=== PATIENT | male | born 1970 | race Caucasian/White ===

== ENCOUNTER 2025-04-04 10:41 | Inpatient (IN) | payer MEDICAID, SELFPAY ==
--- OUTSIDE RECORDS SUMMARY | 2024-02-12 11:40 | XMS_ITS ---
Author Organization [employer] [facility] Address [address] [place] [address] Care Team Providers Care Mud Mill Tender Name Role Phone Tony Guzman MD Primary Care Provider [phone] REASON FOR VISIT 3 mon f/u Medications Medication SIG (Take, Route, Frequency, Duration) Notes Start Date End Date Status BUSPIRONE 10 mg tablet 1 tab(s) orally 4 times a day Active HYDROXYZINE hydrochloride 10 mg tablet 1 tab(s) orally 4 times a day Active DICLOFENAC sodium 75 mg delayed release tablet 1 tab(s) orally 2 times a day; Duration: 30 day(s) Active LISINOPRIL 10 mg tablet 1 tab(s) orally once a day; Duration: 90 days 08/07/2023 Active ONDANSETRON 4 mg tablet, disintegrating 1 tab(s) orally daily prn; Duration: 30 days Active CARVEDILOL 12.5 mg tablet 1 tab(s) orall y 2 times a day; Duration: 90 day(s) Active ASPIRIN 81 mg tablet, chewable 1 tab(s) chewed once a day; Duration: 90 days 08/07/2023 Active SUBOXONE 8 mg-2 mg film 2 film(s) sublin gually once a day; Duration: 30 day(s) Active EFFEXOR XR 75 mg capsule, extended release 1 cap(s) orally once a day; Duration: 30 day(s) Active DOXEPIN 100 mg capsule 1 cap(s) orally o nce a day (at bedtime); Duration: 30 day(s) Active TAMSULOSIN 0.4 mg capsule 1 cap(s) orall y once a day; Duration: 90 days Active VITAMIN D3 125 mcg capsule 1 cap(s) oral ly once a day; Duration: 90 days Active ATORVASTATIN 20 mg tablet 1 tab(s) orall y once a day; Duration: 90 days Active FAMOTIDINE 20 mg tablet 1 tab(s) orally 2 times a day; Duration: 90 days Active LORATADINE 10 mg tablet 1 tab(s) orally once a day; Duration: 90 days Active GABAPENTIN 300 mg capsule 1 cap(s) orall y daily; Duration: 28 days 11/20/2023 Active OMEPRAZOLE 20 mg delayed release capsule 1 cap(s) orally once a day; Duration: 90 days Active METHOCARBAMOL 500 mg tablet 1 tab orally bedtime; Duration: 90 days Active ACETAMINOPHEN 500 mg tablet 1 tab(s) ora lly every 8 hours; Duration: 90 days Active Encounters Encounter Location Date Provider Diagnosis [address] [address] 02/12/2024 Tony Guzman Plan Of Treatment No Information Progress Notes * Danny SCHAFFER DDOB:[birth year] (54 yo M)Acc No.[id number]:02/12/2024 Progress Note Patient: Travis villarreal Danny Pires Provider: Gaby Guzman M.D. :1970 A ge:53 Y S ex:Male Date:02/12/2024 Address:[address] [place], [place] [id number] Subjective: * Chief Complaints: * 3 mon f/u * Medications: T akingGABAPENTIN 300 mg capsule 1 cap(s) orally daily OMEPRAZOLE 20 mg delayed release capsule 1 cap(s) orally once a day METHOCARBAMOL 500 mg tablet 1 tab orally bedtime ACETAMINOPHEN 500 mg tablet 1 tab(s) orally every 8 hours TAMSULOSIN 0.4 mg capsule 1 cap(s) orally once a day VITAMIN D3 125 mcg capsule 1 cap(s) orally once a day ATORVASTATIN 20 mg tablet 1 tab(s) orally once a day FAMOTIDINE 20 mg tablet 1 tab(s) orally 2 times a day LORATADINE 10 mg tablet 1 tab(s) orally once a day CARVEDILOL 12.5 mg tablet 1 tab(s) orally 2 times a day ASPIRIN 81 mg tablet, chewable 1 tab(s) chewed once a day SUBOXONE 8 mg-2 mg film 2 film(s) sublingually once a day EFFEXOR XR 75 mg capsule, extended release 1 cap(s) orally once a day DOXEPIN 100 mg capsule 1 cap(s) orally once a day (at bedtime) BUSPIRONE 10 mg tablet 1 tab(s) orally 4 times a day HYDROXYZINE hydrochloride 10 mg tablet 1 tab(s) orally 4 times a day DICLOFENAC sodium 75 mg delayed release tablet 1 tab(s) orally 2 times a day LISINOPRIL 10 mg tablet 1 tab(s) orally once a day ONDANSETRON 4 mg tablet, disintegrating 1 tab(s) orally daily prn Taking GABAPENTIN 300 mg capsule 1 cap(s) orally daily Taking OMEPRAZOLE 20 mg delayed release capsule 1 cap(s) orally once a day Taking METHOCARBAMOL 500 mg tablet 1 tab orally bedtime Taking ACETAMINOPHEN 500 mg tablet 1 tab(s) orally every 8 hours Taking TAMSULOSIN 0.4 mg capsule 1 cap(s) orally once a day Taking VITAMIN D3 125 mcg capsule 1 cap(s) orally once a day Taking ATORVASTATIN 20 mg tablet 1 tab(s) orally once a day Taking FAMOTIDINE 20 mg tablet 1 tab(s) orally 2 times a day Taking LORATADINE 10 mg tablet 1 tab(s) orally once a day Taking CARVEDILOL 12.5 mg tablet 1 tab(s) orally 2 times a day Taking ASPIRIN 81 mg tablet, chewable 1 tab(s) chewed once a day Taking SUBOXONE 8 mg-2 mg film 2 film(s) sublingually once a day Taking EFFEXOR XR 75 mg capsule, extended release 1 cap(s) orally once a day Taking DOXEPIN 100 mg capsule 1 cap(s) orally once a day (at bedtime) Taking BUSPIRONE 10 mg tablet 1 tab(s) orally 4 times a day Taking HYDROXYZINE hydrochloride 10 mg tablet 1 tab(s) orally 4 times a day Taking DICLOFENAC sodium 75 mg delayed release tablet 1 tab(s) orally 2 times a day Taking LISINOPRIL 10 mg tablet 1 tab(s) orally once a day Taking ONDANSETRON 4 mg tablet, disintegrating 1 tab(s) orally daily prn Care Plan Details* * Electronic signature of Serina Guzman MD, MD on 04/04/2025 at 10:54 AM EST Sign off status: Pending * Provider: Gaby Guzman M.D. Date: Generated for Chilo hooks/Clarisse/Radha on: 06/04/2024 10:54 AM EST
--- OUTSIDE RECORDS SUMMARY | 2024-08-26 10:00 | XMS_ITS ---
Author Organization [email or web address] [facility] Address [address] [address] Care Team Providers Care Mud Trucker Name Role Phone Tony Guzman MD Primary Care Provider [phone] REASON FOR VISIT 3 month f/u Medications Medication SIG (Take, Route, Frequency, Duration) Notes Start Date End Date Status CARVEDILOL 12.5 mg tablet 1 tab(s) orall y 2 times a day Active SUBOXONE 8 mg-2 mg film 2 film(s) sublin gually once a day Active FAMOTIDINE 20 mg tablet 1 tab(s) orally 2 times a day Active EFFEXOR XR 75 mg capsule, extended release 1 cap(s) orally once a day Active DOXEPIN 100 mg capsule 1 cap(s) orally o nce a day (at bedtime) Active ATORVASTATIN 20 mg tablet 1 tab(s) orall y once a day Active TAMSULOSIN 0.4 mg capsule 1 cap(s) orall y once a day Active METHOCARBAMOL 500 mg tablet 1 tab orally bedtime Active ACETAMINOPHEN 500 mg tablet 1 tab(s) ora lly every 8 hours Active OMEPRAZOLE 20 mg delayed release capsule 1 cap(s) orally once a day Active VITAMIN D3 125 mcg capsule 1 cap(s) oral ly once a day; Duration: 90 days Active LORATADINE 10 mg tablet 1 tab(s) orally once a day; Duration: 90 days Active GABAPENTIN 300 mg capsule 1 cap(s) orally daily Active HYDROXYZINE hydrochloride 10 mg tablet 1 tab(s) orally 4 times a day Active ONDANSETRON 4 mg tablet, disintegrating 1 tab(s) orally daily prn; Duration: 30 days Active CLONAZEPAM 0.5 mg tablet 1 tab(s) orally 4 times a day Active BUSPIRONE 10 mg tablet 1 tab(s) orally 4 times a day Active LOSARTAN POTASSIUM 50 mg tablet 1 tab(s) orally once a day; Duration: 90 days Active Encounters Encounter Location Date Provider Diagnosis [address] [address] 08/26/2024 Tony Guzman Plan Of Treatment No Information Progress Notes * Danny SCHAFFER DDOB:[birth year] (54 yo M)Acc No.[id number]:08/26/2024 Progress Note Patient: Danny Andrade Provider: Gaby Guzman M.D. :1970 A ge:53 Y S ex:Male Date:08/26/2024 Address:[address] [place], [place] [id number] Subjective: * Chief Complaints: * 3 month f/u * Medications: T akingCLONAZEPAM 0.5 mg tablet 1 tab(s) orally 4 times a day VITAMIN D3 125 mcg capsule 1 cap(s) orally once a day LORATADINE 10 mg tablet 1 tab(s) orally once a day HYDROXYZINE hydrochloride 10 mg tablet 1 tab(s) orally 4 times a day ONDANSETRON 4 mg tablet, disintegrating 1 tab(s) orally daily prn GABAPENTIN 300 mg capsule 1 cap(s) orally [...] 1 tab(s) orally 2 times a day CARVEDILOL 12.5 mg tablet 1 tab(s) orally 2 times a day SUBOXONE 8 mg-2 mg film 2 film(s) sublingually once a day EFFEXOR XR 75 mg capsule, extended release 1 cap(s) orally once a day DOXEPIN 100 mg capsule 1 cap(s) orally once a day (at bedtime) BUSPIRONE 10 mg tablet 1 tab(s) orally 4 times a day LOSARTAN POTASSIUM 50 mg tablet 1 tab(s) orally once a day Taking CLONAZEPAM 0.5 mg tablet 1 tab(s) orally 4 times a day Taking VITAMIN D3 125 mcg capsule 1 cap(s) orally once a day Taking LORATADINE 10 mg tablet 1 tab(s) orally once a day Taking HYDROXYZINE hydrochloride 10 mg tablet 1 tab(s) orally 4 times a day Taking ONDANSETRON 4 mg tablet, [...] tab(s) orally 2 times a day Taking CARVEDILOL 12.5 mg tablet 1 tab(s) orally 2 times a day Taking SUBOXONE 8 mg-2 mg film 2 film(s) sublingually once a day Taking EFFEXOR XR 75 mg capsule, extended release 1 cap(s) orally once a day Taking DOXEPIN 100 mg capsule 1 cap(s) orally once a day (at bedtime) Taking BUSPIRONE 10 mg tablet 1 tab(s) orally 4 times a day Taking LOSARTAN POTASSIUM 50 mg tablet 1 tab(s) orally once a day Billing Information: * Procedure Codes: Care Plan Details* * Electronic signature of Serina Guzman MD, MD on 04/04/2025 at 10:54 AM EST Sign off status: Pending * Provider: Gaby Guzman M.D. Date: 0 08/26/2024 Generated for Chilo hooks/Clarisse/Radha on: 06/04/2024 10:54 AM EST
--- OUTSIDE RECORDS SUMMARY | 2024-10-18 16:30 | XMS_ITS ---
Author Organization [employer] [facility] Address [address] [address] Care Team Providers Care Cleaning Team Member Name Role Phone Tony Guzman MD Primary Care Provider [phone] Migration, Provider Unavailable Unavailable Allergies Allergen (clinical drug ingredient) Drug/Non Drug Allergy documented on EMR Reaction Allergy Type Onset Date Status Elavil anaphylaxis Drug Allergy Activ e REASON FOR VISIT [facility] Conversion Encounter Medications Medication SIG (Take, Route, Frequency, Duration) Notes Start Date End Date Status Carvedilol 12.5 MG Tablet 1 tab(s) orally 2 times a day; Duration: 30 days Active busPIRone HCl 10 MG Tablet 1 tab(s) orally 4 times a day prn Active Losartan Potassium 50 MG Tablet 1 tab(s) orally once a day; Duration: 30 days Active Doxepin HCl 100 MG Capsule 1 cap(s) orally once a day (at bedtime) Active Suboxone 8-2 MG Film 2 film(s) sublingually once a day Active Omeprazole 20 MG Capsule Delayed Release 1 cap(s) orally once a day Active Atorvastatin Calcium 20 MG Tablet 1 tab(s) orally once a day; Duration: 30 days Active Famotidine 20 MG Tablet 1 tab(s) orally 2 times a day Active Tamsulosin HCl 0.4 MG Capsule 1 cap(s) orally once a day; Duration: 30 days Active Methocarbamol 500 MG Tablet 1 tab orally bedtime Active Vitamin D3 125 MCG CAPSULE 1 CAP(S) ORALLY ONCE A DAY; Duration: 90 DAYS *Please review and pick correct strength-formulati on from [facility] options. If intended option is not shown, discontinue and re-order from Quick Search* Active Desvenlafaxine ER ( SUCCINATE) 50 MG TABLET, EXTENDED RELEASE 1 TAB(S) ORALLY ONCE A DAY *Please review and pick correct strength-formulati on from [facility] options. If intended option is not shown, discontinue and re-order from Quick Search* Active Ondansetron 4 MG Tablet Disintegrating 1 tab(s) orally daily prn; Duration: 30 days Active Loratadine 10 MG Tablet 1 tab(s) orally once a day; Duration: 90 days Active Gabapentin 300 MG Capsule 1 cap(s) orally daily 11/20/2023 Active Encounters Encounter Location Date Provider Diagnosis [address] [address] 10/18/2024 Provider Migration Benign prostatic hyperplasia with lower urinary tract symptoms N40.1 ; Mixed hyperlipidemia E78.2 and Essential (primary) hypertension I10 Assessments Encounter Date Diagnosis (ICD Code) Assessment Notes Treatment Notes Treatment Clinical Notes Section Notes 10/18/2024 Benign prostatic hyperplasia with lower urinary tract symptoms (ICD-10 - N40.1) 10/18/2024 Mixed hyperlipidemia (ICD-10 - E78.2) 10/18/2024 Essential (primary) hypertension (ICD-10 - I10) Plan Of Treatment Medication Medication Name Sig Start Date Stop Date Notes Carvedilol 12.5 MG Tablet 1 tab(s) orall y 2 times a day; Duration: 30 days Losartan Potassium 50 MG Tablet 1 tab(s) orally once a day; Duration: 30 days Atorvastatin Calcium 20 MG Tablet 1 tab(s) orally once a day; Duration: 30 days Tamsulosin HCl 0.4 MG Capsule 1 cap(s) o rally once a day; Duration: 30 days Progress Notes * Danny SCHAFFER DDOB:[birth year] (54 yo M)Acc No.[id number]:10/18/2024 Patient: Travis Danny villarreal Provider: :1970 A ge:53 Y S ex:Male Date:10/18/2024 Address:[address] [place], [place] [id number] Pcp:Tony Guzman MD Subjective: * Chief Complaints: * [facility] * Medications: T akingDesvenlafaxine ER ( SUCCINATE) 50 MG TABLET, EXTENDED RELEASE 1 TAB(S) ORALLY ONCE A DAY , Notes to Pharmacist: *Please review and pick correct strength-formulation from [facility] options. If intended option is not shown, discontinue and re-order from Quick Search*Vitamin D3 125 MCG CAPSULE 1 CAP(S) ORALLY ONCE A DAY , Notes to Pharmacist: *Please review and pick correct strength-formulation from [facility] options. If intended option is not shown, discontinue and re-order from Quick Search*Loratadine 10 MG Tablet 1 tab(s) orally once a day Ondansetron 4 MG Tablet Disintegrating 1 tab(s) orally daily prn Gabapentin 300 MG Capsule 1 cap(s) orally daily Omeprazole 20 MG Capsule Delayed Release 1 cap(s) orally once a day Methocarbamol 500 MG Tablet 1 tab orally bedtime Famotidine 20 MG Tablet 1 tab(s) orally 2 times a day Suboxone 8-2 MG Film 2 film(s) sublingually once a day Doxepin HCl 100 MG Capsule 1 cap(s) orally once a day (at bedtime) busPIRone HCl 10 MG Tablet 1 tab(s) orally 4 times a day , Notes to Pharmacist: prnTaking Desvenlafaxine ER ( SUCCINATE) 50 MG TABLET, EXTENDED RELEASE 1 TAB(S) ORALLY ONCE A DAY , Notes to Pharmacist: *Please review and pick correct strength-formulation from [employer] options. If intended option is not shown, discontinue and re-order from Quick Search*Taking Vitamin D3 125 MCG CAPSULE 1 CAP(S) ORALLY ONCE A DAY , Notes to Pharmacist: *Please review and pick correct strength-formulation from [employer] options. If intended option is not shown, discontinue and re-order from Quick Search*Taking Loratadine 10 MG Tablet 1 tab(s) orally once a day Taking Ondansetron 4 MG Tablet Disintegrating 1 tab(s) orally daily prn Taking Gabapentin 300 MG Capsule 1 cap(s) orally daily Taking Omeprazole 20 MG Capsule Delayed Release 1 cap(s) orally once a day Taking Methocarbamol 500 MG Tablet 1 tab orally bedtime Taking Famotidine 20 MG Tablet 1 tab(s) orally 2 times a day Taking Suboxone 8-2 MG Film 2 film(s) sublingually once a day Taking Doxepin HCl 100 MG Capsule 1 cap(s) orally once a day (at bedtime) Taking busPIRone HCl 10 MG Tablet 1 tab(s) orally 4 times a day , Notes to Pharmacist: prn * Allergies: E lavil: anaphylaxis Assessment: * Assessment: 1. B enign prostatic hyperplasia with lower urinary tract symptoms - N40.1 2 .?Mixed hyperlipidemia - E78.2 3 . E ssential (primary) hypertension - I10? Plan: * Treatment: 2. M ixed hyperlipidemia Refill Atorvastatin Calcium Tablet, 20 MG, 1 tab(s), orally, once a day, 30 days, 30, Refills 0.? 3. E ssential (primary) hypertension Refill Carvedilol Tablet, 12.5 MG, 1 tab(s), orally, 2 times a day, 30 days, 60, Refills 0; R efill Losartan Potassium Tablet, 50 MG, 1 tab(s), orally, once a day, 30 days, 30, Refills 0. ? * Electronic signature of Prov ider Migration on 04/04/2025 at 10:54 AM EST Sign off status: Pending * Provider: Date: 0 10/18/2024 Generated for Chilo hooks/Clarisse/Violettaitting on: 06/04/2024 10:54 AM EST
[2025-04-04] VITALS (14 sets, daily range): BP systolic 100–151; BP diastolic 38–78; PULSE 100–131; RESP 14–19; TEMP 36.7–38.4; O2SAT 88–96; BMI 25.2; BMI 26.2
--- OUTSIDE RECORDS SUMMARY | 2025-04-04 10:54 | XMS_ITS | Patient Health Record ---
Author Organization [facility] Address [address] [address] Care Team Providers Care Senior Accounts Payable Specialist Name Role Phone Tony Guzman MD Primary Care Provider ELVA KAMARA Unavailable [phone] Migration, Provider Unavailable Unavailable Allergies Allergen (clinical drug ingredient) Drug/Non Drug Allergy documented on EMR Reaction Allergy Type Onset Date Status Elavil anaphylaxis Drug Allergy Activ e Reason For Referral No Information Medications Medication SIG (Take, Route, Frequency, Duration) Notes Start Date End Date Status Carvedilol 12.5 MG Tablet 1 tab(s) orally 2 times a day; Duration: 30 days Active busPIRone HCl 10 MG Tablet 1 tab(s) orally 4 times a day prn Active Losartan Potassium 50 MG Tablet 1 tab(s) orally once a day; Duration: 30 days Active Vitamin D3 125 MCG CAPSULE 1 CAP(S) ORALLY ONCE A DAY; Duration: 90 DAYS *Please review and pick correct strength-formulati on from [facility] options. If intended option is not shown, discontinue and re-order from Quick Search* Active Desvenlafaxine ER ( SUCCINATE) 50 MG TABLET, EXTENDED RELEASE 1 TAB(S) ORALLY ONCE A DAY *Please review and pick correct strength-formulati on from [facility] options. If intended option is not shown, discontinue and re-order from Quick Search* Active Ondansetron 4 MG Tablet Disintegrating 1 tab(s) orally daily prn; Duration: 30 days Active Loratadine 10 MG Tablet 1 tab(s) orally once a day; Duration: 90 days Active Omeprazole 20 MG Capsule Delayed Release 1 cap(s) orally once a day Active Gabapentin 300 MG Capsule 1 cap(s) orally daily 11/20/2023 Active Atorvastatin Calcium 20 MG Tablet 1 tab(s) orally once a day; Duration: 30 days Active Famotidine 20 MG Tablet 1 tab(s) orally 2 times a day Active Tamsulosin HCl 0.4 MG Capsule 1 cap(s) orally once a day; Duration: 30 days Active Methocarbamol 500 MG Tablet 1 tab orally bedtime Active Doxepin HCl 100 MG Capsule 1 cap(s) orally once a day (at bedtime) Active Suboxone 8-2 MG Film 2 film(s) sublingually once a day Active Immunizations Vaccine Route Administration Date Status Comme nts FLUZONE SDV 6M-64Y (9740-8622) IM Intramuscular 02/28/2024 Administered Social History Social History Social History Social Info Question Answer Notes Tobacco Use Current smoking status: Current Smoker How often do you smoke?: Every day PPD 1 Number of years? 42 years Additional Details Category Social Info Options Details Social History Occupation N/A Occupational exposure no Travel outside [place] no Alcohol no Sexually active yes Drug use no Exercise no Home smoke detector use: yes Caffeine yes, 2 cups per day Marital Status Children yes Pets yes, 4 cats 2 do gs Anabaptist yes Problems Problem Type SNOMED Code ICD Code Onset Dates Problem Status W/U Status Risk Notes Problem Essential hypertension (11253205) Essential (primary) hypertension (I10) Active confirmed Problem Vitamin D deficiency (43665325) Vitamin D deficiency, unspecified (E55.9) Active confirmed Problem Generalized anxiety disorder (11153878) Generalized anxiety disorder (F41.1) Active confirmed Problem Seasonal allergic rhinitis (545172393) Other seasonal allergic rhinitis (J30.2) Active confirmed Problem Gastro-esophageal reflux disease without esophagitis (440402422) Gastro-esophageal reflux disease without esophagitis (K21.9) Active confirmed Problem Mixed hyperlipidemia (503119266) Mixed hyperlipidemia (E78.2) Active confirmed Problem Spasm (39044180) Contracture of muscle, unspecified site (M62.40) Active confirmed Problem Opioid dependenc e with opioid-induced mood disorder (F11.24) Active confirmed Problem Lower urinary tract symptoms due to benign prostatic hypertrophy (05819446422906) Benign prostatic hyperplasia with lower urinary tract symptoms (N40.1) Active confirmed Vital Signs Heart Rate 102 /min 05/27/2024 Temperature 97.3 degrees Fahrenheit 05/27/2024 Oximetry 96 05/27/2024 Blood pressure diastolic 86 mm Hg 05/27/2024 Height 68.0 in 05/27/2024 Blood pressure systolic 132 mm Hg 05/27/2024 Weight 180.2 lbs 05/27/2024 BMI 27.4 05/27/2024 Encounters Encounter Location Date Provider Diagnosis [address] [address] 10/18/2024 Provider Migration Benign prostatic hyperplasia with lower urinary tract symptoms N40.1 ; Mixed hyperlipidemia E78.2 and Essential (primary) hypertension I10 [address] [address] 05/27/2024 Tony Guzman Essential (primary) hypertension I10 ; Generalized anxiety disorder F41.1 ; Opioid dependence with opioid-induced mood disorder F11.24 and Other [facility] (current) drug therapy Z79.[address] [address] 08/27/2024 ELVA ASAD Essential (primary) hypertension I10 ; Mixed hyperlipidemia E78.2 and Benign prostatic hyperplasia with lower urinary tract symptoms N40.[address] [address] 07/01/2024 Tony Guzman Essential (primary) hypertension I10 [address] [address] 09/01/2024 ELVA ASAD Benign prostatic hyperplasia with lower urinary tract symptoms N40.1 ; Mixed hyperlipidemia E78.2 and Essential (primary) hypertension I10 Assessments Encounter Date Diagnosis (ICD Code) Assessment Notes Treatment Notes Treatment Clinical Notes Section Notes 05/27/2024 Essential (primary) hypertension (ICD-10 - I10) 05/27/2024 Generalized anxiety disorder (ICD-10 - F41.1) 07/01/2024 Essential (primary) hypertension (ICD-10 - I10) 08/27/2024 Essential (primary) hypertension (ICD-10 - I10) 09/01/2024 Benign prostatic hyperplasia with lower urinary tract symptoms (ICD-10 - N40.1) 10/18/2024 Benign prostatic hyperplasia with lower urinary tract symptoms (ICD-10 - N40.1) 09/01/2024 Mixed hyperlipidemia (ICD-10 - E78.2) 10/18/2024 Mixed hyperlipidemia (ICD-10 - E78.2) 08/27/2024 Mixed hyperlipidemia (ICD-10 - E78.2) 05/27/2024 Opioid dependence with opioid-induced mood disorder (ICD-10 - F11.24) 05/27/2024 Other [facility] (current) drug therapy (ICD-10 - Z79.899) 08/27/2024 Benign prostatic hyperplasia with lower urinary tract symptoms (ICD-10 - N40.1) 09/01/2024 Essential (primary) hypertension (ICD-10 - I10) 10/18/2024 Essential (primary) hypertension (ICD-10 - I10) 08/27/2024 Other This visit was conducted via telehealth. Privacy and security precautions were taken in accordance with HIPAA. Patient approves insurance billing and cost sharing. [employer] or Doximity which are audio and visually enabled for two way interaction was used for this visit. Plan Of Treatment Pending Test Test Name Order Date Colonoscopy 03/28/2024 EGD 03/28/2024 Cologuard 02/28/2024 Insurance Providers Payer Name Payer Address Payer Phone Subscriber Number Group Number Insured Name Patient Relationship to Insured Coverage Start Date Coverage End Date [employer] Attn Claims Department [address] [address] [place] [address] [id number] Danny Schaffer Self - patient is the insured Medical (General) History Medical History History ICD Code Opioid use disorder Depression/anxiety Surgical History Surgery Date(Month/Year) Fractured Clavicle 2009
--- OUTSIDE RECORDS SUMMARY | 2025-04-04 10:54 | XMS_ITS | Clinical Summary ---
Author Organization [facility] Address [address] [place] [address] Care Team Providers Care Manager Transfusion Name Role Phone Unavailable Primary Care Provider Unavailabl e Social History Tobacco Use Types Packs/Day Years Used Date Smoking Tobacco: Never Assessed Sex and Gender Information Value Date Recorded Sex Assigned at Not on file Legal Sex Male 7:29 PM EDT Gender Identity Not on file Sexual Orientation Not on file Plan of Treatment Not on file Insurance Fred ROTHMAN [address] MEDICAID
--- OUTSIDE RECORDS SUMMARY | 2025-04-04 10:54 | XMS_ITS ---
Author Organization Unknown ENCOUNTERS Encounter Performer Location Date Diagnosis Diagnosis Status Emergency [facility] [address] [place] [id number] Pre Admit [facility] [address] [place] [id number] *Note: Encounters from your own facility or health system may be excluded. Allergies, Adverse Reactions, Alerts Allergen Type Severity Identification Date tramadol drug allergy 2 [id number] amitriptyline drug allergy 2 20250122 Medications Name Date Quantity Days Supplied GPI Number
--- OUTSIDE RECORDS SUMMARY | 2025-04-04 10:54 | XMS_ITS | Clinical Summary ---
Author Organization [facility] Address [address] [place] [address] [place] [address] Phone Care Team Providers Care Web Production Artist Name Role Phone Radha Cruz APRN Primary Care Physician [phone] Conditions or Problems Problem Name Problem Code Onset Date Status Entry Date Provider Comment Standard Description Annotate Body mass index (BMI) 24.0-24.9; adult Z68.24 (ICD-10-CM ) 07/14 Active 07/18 Radha Anthony LONG Body mass index [BMI] 24.0-24.9, adult Body mass index (BMI) 24.0-24.9; adult Z68.24 (ICD-10-CM ) 07/14 Correction 07/14 Radha Cruz APRN Body mass index [BMI] 24.0-24.9, adult Body mass index (BMI) 24.0-24.9; adult Z68.24 (ICD-10-CM ) 07/14 Removed 07/14 Radha Anthony LONG Body mass index [BMI] 24.0-24.9, adult Body mass index (BMI) 24.0-24.9; adult Z68.24 (ICD-10-CM ) 01/14 Correction 01/14 Radha Anthony TURNERN Body mass index [BMI] 24.0-24.9, adult Hypertrigly ceridemia [id number] (SNOMED CT) 07/14 Active 07/14 Radha Cruz APRN Hypertriglycer idemia Body mass index (BMI) 24.0-24.9; adult Z68.24 (ICD-10-CM ) 01/14 Removed 01/14 Radha Curtsinger [employer] Body mass index [BMI] 24.0-24.9, adult Body mass index (BMI) 23.0-23.9; adult Z68.23 (ICD-10-CM ) 07/02 Correction 07/02 Radha Curtsinger [employer] Body mass index [BMI] 23.0-23.9, adult Tobacco User [id number] (SNOMED CT) 01/14 Active 01/14 Radha Curtsinger [employer] Tobacco user Body mass index (BMI) 23.0-23.9; adult Z68.23 (ICD-10-CM ) 07/02 Removed 07/02 Radha Curtsinger [employer] Body mass index [BMI] 23.0-23.9, adult Body mass index (BMI) 23.0-23.9; adult Z68.23 (ICD-10-CM ) 06/18 Correction 06/21 Radha Curtsinger [employer] Body mass index [BMI] 23.0-23.9, adult Weight gain [id number] (SNOMED CT) 08/10 Resolved 08/10 Radha Curtsinger [employer] Abnormal weight gain Body mass index (BMI) 23.0-23.9; adult Z68.23 (ICD-10-CM ) 06/18 Removed 06/21 Radha Curtsinger [employer] Body mass index [BMI] 23.0-23.9, adult Body mass index (BMI) 22.0-22.9; adult Z68.22 (ICD-10-CM ) 02/04 Correction 02/08 Radha Curtsinger [employer] Body mass index [BMI] 22.0-22.9, adult Body mass index (BMI) 22.0-22.9; adult Z68.22 (ICD-10-CM ) 02/04 Removed 02/08 Radha Curtsinger [employer] Body mass index [BMI] 22.0-22.9, adult Body mass index (BMI) 22.0-22.9; adult Z68.22 (ICD-10-CM ) 02/04 Correction 02/04 Radha Anthony TURNERN Body mass index [BMI] 22.0-22.9, adult Flu vaccine [id number] (SNOMED CT) 02/04 Inactive 02/08 Radha Cruz APRN Administration of influenza vaccine Body mass index (BMI) 22.0-22.9; adult Z68.22 (ICD-10-CM ) 02/04 Removed 02/04 Radha Anthony [employer] Body mass index [BMI] 22.0-22.9, adult Body mass index (BMI) 23.0-23.9; adult Z68.23 (ICD-10-CM ) 10/12 Correction 10/12 Radha Anthony TURNERN Body mass index [BMI] 23.0-23.9, adult Body mass index (BMI) 23.0-23.9; adult Z68.23 (ICD-10-CM ) 10/12 Removed 10/12 Radha Anthony TURNERN Body mass index [BMI] 23.0-23.9, adult Body mass index (BMI) 23.0-23.9; adult Z68.23 (ICD-10-CM ) 08/10 Correction 08/10 Radha Anthony TURNERN Body mass index [BMI] 23.0-23.9, adult Allergic rhinitis [id number] (SNOMED CT) 08/10 Active 08/10 Radha Anthony TURNERN Allergic rhinitis Body mass index (BMI) 23.0-23.9; adult Z68.23 (ICD-10-CM ) 08/10 Removed 08/10 Radha Anthony TURNERN Body mass index [BMI] 23.0-23.9, adult Body mass index (BMI) 22.0-22.9; adult Z68.22 (ICD-10-CM ) 12/28 Correction 12/28 Radha Curshabana TURNERN Body mass index [BMI] 22.0-22.9, adult Weight gain 164510145 (SNOMED CT) 08/10 Removed 08/10 Radha Cruz APRN Abnormal weight gain Immunizatio n due [id number] (SNOMED CT) 12/21 Resolved 12/21 Mary Anne Sinan [employer] Immunization due custodial medication use NEC [id number] (SNOMED CT) 12/28 Active 12/28 Jamia Cuevayadi LONG Long-term drug therapy Body mass index (BMI) 22.0-22.9; adult Z68.22 (ICD-10-CM ) 12/28 Removed 12/28 Jamia Cuevaaydi LONG Body mass index [BMI] 22.0-22.9, adult Body mass index (BMI) 21.0-21.9; adult Z68.21 (ICD-10-CM ) 12/21 Correction 12/21 Jamia Cuevayadi LONG Body mass index [BMI] 21.0-21.9, adult Medication refill [id number] (SNOMED CT) 12/28 Inactive 12/28 Jamia Cuevayadi LONG Repeated prescription Body mass index (BMI) 21.0-21.9; adult Z68.21 (ICD-10-CM ) 12/21 Removed 12/21 Nancy Bui MD Body mass index [BMI] 21.0-21.9, adult Body mass index (BMI) 20.0-20.9; adult Z68.20 (ICD-10-CM ) 10/08 Correction 10/08 Nancy Bui MD Body mass index [BMI] 20.0-20.9, adult Immunizatio n due [id number] (SNOMED CT) 12/21 Removed 12/21 Nancy Bui MD Immunization due Hepatitis C [id number] (SNOMED CT) 10/16 Active 10/16 Radha Cruz APRN Viral hepatitis C Elevated liver enzymes [id number] (SNOMED CT) 10/09 Active 10/09 Radha Cruz APRN Liver enzymes outside reference range Body mass index (BMI) 20.0-20.9; adult Z68.20 (ICD-10-CM ) 10/08 Removed 10/08 Radha Anthony [employer] Body mass index [BMI] 20.0-20.9, adult Nausea, chronic NERVOUS STOMACH R11.0 (ICD-10-CM ) Active Radha Anthony [employer] Nausea Body mass index (BMI) 20.0-20.9; adult Z68.20 (ICD-10-CM ) 07/11 Correction 07/11 Radha Curjayneinger [employer] Body mass index [BMI] 20.0-20.9, adult Body mass index (BMI) 20.0-20.9; adult Z68.20 (ICD-10-CM ) 07/11 Removed 07/11 Radha Curshabana [employer] Body mass index [BMI] 20.0-20.9, adult Body mass index (BMI) 20.0-20.9; adult Z68.20 (ICD-10-CM ) Correction Radha Curshabana [employer] Body mass index [BMI] 20.0-20.9, adult Body mass index (BMI) 20.0-20.9; adult Z68.20 (ICD-10-CM ) Removed Radha Curshabana [employer] Body mass index [BMI] 20.0-20.9, adult Body mass index (BMI) 21.0-21.9; adult Z68.21 (ICD-10-CM ) 11/19 Correction 11/19 Radha Curshabana [employer] Body mass index [BMI] 21.0-21.9, adult Vitamin D deficiency [id number] (SNOMED CT) 11/21 Active 11/21 Radha Curshabana [employer] Vitamin D deficiency Body mass index (BMI) 21.0-21.9; adult Z68.21 (ICD-10-CM ) 11/19 Removed 11/19 Radha Curshabana [employer] Body mass index [BMI] 21.0-21.9, adult Body mass index (BMI) 20.0-20.9; adult Z68.20 (ICD-10-CM ) 08/06 Correction 08/07 Radha Curjayneinger [employer] Body mass index [BMI] 20.0-20.9, adult SCREENING FOR THYROID DISORDER [id number] (SNOMED CT) Resolved Radha Curtsinger [employer] Thyroid disorder screening Influenza [id number] (SNOMED CT) 06/08 Resolved 06/08 Radha Curtsinger [employer] Influenza Hyponatremi a [id number] (SNOMED CT) Resolved Radha Curtsinger [employer] Hyponatremia Body mass index (BMI) 20.0-20.9; adult Z68.20 (ICD-10-CM ) 08/06 Removed 08/07 Radha Curtsinger [employer] Body mass index [BMI] 20.0-20.9, adult Body mass index (BMI) 20.0-20.9; adult Z68.20 (ICD-10-CM ) 08/06 Correction 08/06 Radha Curtsinger [employer] Body mass index [BMI] 20.0-20.9, adult Syncope [id number] (SNOMED CT) 08/06 Active 08/06 Radha Curtsinger [employer] Syncope Body mass index (BMI) 20.0-20.9; adult Z68.20 (ICD-10-CM ) 08/06 Removed 08/06 Radha Curtsinger [employer] Body mass index [BMI] 20.0-20.9, adult Body mass index (BMI) 20.0-20.9; adult Z68.20 (ICD-10-CM ) 06/08 Correction 06/08 Radha Curtsinger [employer] Body mass index [BMI] 20.0-20.9, adult Depression, major, recurrent [id number] (SNOMED CT) 08/06 Active 08/06 Radha Curtsinger [employer] Recurrent major depression Body mass index (BMI) 20.0-20.9; adult Z68.20 (ICD-10-CM ) 06/08 Removed 06/08 Radha Curtsinger [employer] Body mass index [BMI] 20.0-20.9, adult Influenza [id number] (SNOMED CT) 06/08 Removed 06/08 Radha Curjayneinger [employer] Influenza Body mass index (BMI) 20.0-20.9; adult Z68.20 (ICD-10-CM ) Correction 05/14 Radha Curjayneinger [employer] Body mass index [BMI] 20.0-20.9, adult Body mass index (BMI) 20.0-20.9; adult Z68.20 (ICD-10-CM ) Removed 05/14 Radha Curjayneinger [employer] Body mass index [BMI] 20.0-20.9, adult Body mass index (BMI) 20.0-20.9; adult Z68.20 (ICD-10-CM ) Correction Radha Curjayneinger [employer] Body mass index [BMI] 20.0-20.9, adult Hyponatremi a [id number] (SNOMED CT) Removed Radha Larisainger [employer] Hyponatremia Body mass index (BMI) 20.0-20.9; adult Z68.20 (ICD-10-CM ) Removed Radha Curjayneinger [employer] Body mass index [BMI] 20.0-20.9, adult Screening for diabetes mellitus Z13.1 (ICD-10-CM ) Inactive Radha Curjayneinger [employer] Encounter for screening for diabetes mellitus SCREENING FOR THYROID DISORDER 666248797 (SNOMED CT) Removed Rahda Curtsinger [employer] Thyroid disorder screening GERD 514688048 (SNOMED CT) Active Radha Curtsinger [employer] Gastroesophage al reflux disease Nausea, chronic 795491828 (SNOMED CT) Inactive Radha Curtsinger [employer] Nausea Dissociativ e disorder, MILD 65406560 (SNOMED CT) Active Radha Curtsinger [employer] Dissociative disorder Social phobia, generalized 10628710 (SNOMED CT) Active Radha Curtsinger [employer] Generalized social phobia Agoraphobia with panic 21056901 (SNOMED CT) Active Radha Curtsinger [employer] Panic disorder with agoraphobia Insomnia 663785169 (SNOMED CT) Active Radha Curtsinger [employer] Insomnia Chronic prostatitis 42740926 (SNOMED CT) Active Radha Curtsinger [employer] Chronic prostatitis Lumbar disc disorder 317569022 (SNOMED CT) Active Radha Curtsinger [employer] Disorder of lumbar disc Chronic back pain 903205606 (SNOMED CT) Active Radha Curtsinger [employer] Chronic back pain Hyperlipide zay 88583576 (SNOMED CT) Active Radha Curtsinger [employer] Hyperlipidemia Hypertensio n 05085128 (SNOMED CT) Active Radha Curtsinger [employer] Hypertensive disorder Depression 01972217 (SNOMED CT) Active Radha Curtsinger [employer] Depressive disorder Anxiety Disorder 215605672 (SNOMED CT) Active Radha Curtsinger [employer] Anxiety disorder Medications Medication Instructions Start Date Stop Date Generic Name NDC Provider ONDANSETRON HCL 4 MG TABS TAKE 1 TABLET BY MOUTH EVERY 6 TO 8 HOURS NEEDED ondansetron hcl [id number] Radha Curtsinger [employer] IBUPROFEN 800 MG TABS Take 1 tablet by mouth every eight hours as needed for pain. Take with food. 07/14 ibuprofen 85815041516 Radha Curtsinger [employer] EQ ACETAMINOPHEN 500 MG TABS 1-2 tablet by mouth every six hours as needed for pain for Arthritis pain. acetaminophen 31485288893 Radha Curtsinger [employer] ONDANSETRON HCL 4 MG TABS TAKE 1 TABLET BY MOUTH EVERY 6 TO 8 HOURS NEEDED 06/22 ondansetron hcl 82089247808 Radha Cruz APRN ONDANSETRON HCL 4 MG TABS TAKE 1 TABLET BY MOUTH EVERY 6 TO 8 HOURS NEEDED ondansetron hcl 08787687650 Radha Cruz APRN ProAir HFA 90 mcg/actuation HFA aerosol inhaler INHALE 2 PUFFS BY MOUTH FOUR TIMES DAILY NEEDED albuterol sulfate 98265387136 Radha Cruz APRN OMEPRAZOLE 20 MG CPDR TAKE ONE CAPSULE BY MOUTH EVERY DAY NEEDED FOR HEARTBURN OR REFLUX NOT IMPROVED BY FAMOTIDINE omeprazole 29272217082 Nicole Matamoros APRN OMEPRAZOLE 20 MG CPDR TAKE 1 CAPSULE BY MOUTH EVERY DAY NEEDED FOR HEARTBURN OR REFLUX NOT IMPROVED BY FAMOTIDINE omeprazole 14439480120 Radha Cruz APRN METHOCARBAMOL 500 MG TABS Take 1 tablet by mouth every six to eight hours as needed FOR MUSCLE SPASM methocarbamol 33695928921 Radha Cruz APRN OMEPRAZOLE 20 MG CPDR TAKE ONE CAPSULE BY MOUTH EVERY DAY NEEDED FOR HEARTBURN OR REFLUX NOT IMPROVED BY FAMOTIDINE omeprazole 19226300190 Radha Cruz APRN ATORVASTATIN CALCIUM 20 MG TABS Take 1 tablet by mouth at bedtime atorvastatin 08276847574 Radha Cruz APRN ONDANSETRON HCL 4 MG TABS TAKE 1 TABLET BY MOUTH EVERY 6 TO 8 HOURS NEEDED ondansetron hcl 98975615050 Radha Cruz APRN ProAir HFA 90 mcg/actuation HFA aerosol inhaler INHALE 2 PUFFS BY MOUTH FOUR TIMES DAILY NEEDED albuterol sulfate 13752859703 Radha Cruz APRN FAMOTIDINE 20 MG TABS Take 1 tablet by mouth twice a day as needed PRN for heartburn famotidine 06503883183 Radha Cruz APRN IBUPROFEN 800 MG TABS Take 1 tablet by mouth every eight hours as needed for pain. Take with food. ibuprofen 36266849187 Radha Cruz [employer] VITAMIN D 50 MCG (1999) TABS Take 1 tablet by mouth once a day cholecalciferol (vitamin d3) 82539735481 Radha Cruz APRN TAMSULOSIN HCL 0.4 MG CAPS Take 1 capsule by mouth every night tamsulosin 54407065557 Radha Cruz APRN CARVEDILOL 6.25 MG TABS Take 1 tablet by mouth twice a day carvedilol 21294153280 Radha Cruz APRN VITAMIN D3 50 MCG (1999) TABS Take 1 tablet by mouth once a day 01/03 cholecalciferol (vitamin d3) 34075431846 Jory Gastenveld [employer] METHOCARBAMOL 500 MG TABS 1 tablet by mouth every six to eight hours FOR MUSCLE SPASM 01/03 methocarbamol 73206177483 Jory Gastenveld [employer] ONDANSETRON HCL 4 MG TABS Take 1 tablet by mouth every six to eight hours as needed 01/03 ondansetron hcl 98198664463 Jory Gastenveld [employer] METHOCARBAMOL 500 MG TABS Take 1 tablet by mouth every six to eight hours as needed FOR MUSCLE SPASM methocarbamol 05414749394 Jory Gastenveld [employer] ONDANSETRON HCL 4 MG TABS TAKE 1 TABLET BY MOUTH EVERY 6 TO 8 HOURS NEEDED ondansetron hcl 47923849411 Radha Cruz APRN VITAMIN D 50 MCG (1999) TABS Take 1 tablet by mouth once a day TAKE 1 TABLET BY MOUTH EVERY DAY cholecalciferol (vitamin d3) 65430944314 Jory Gastenveld [employer] CARVEDILOL 6.25 MG TABS Take 1 tablet by mouth twice a day 12/12 carvedilol 05888070996 Nicole Matamoros [employer] FAMOTIDINE 20 MG TABS Take 1 tablet by mouth twice a day FOR REFLUX/HEARTBU RN. 12/12 famotidine 01007456513 Nicole Matamoros APRN TAMSULOSIN HCL 0.4 MG CAPS Take 1 capsule by mouth at bedtime 12/12 tamsulosin 54205544769 Nicole Matamoros [employer] ATORVASTATIN CALCIUM 20 MG TABS Take 1 tablet by mouth at bedtime 12/12 atorvastatin 50793299785 Nicole Matamoros APRN CARVEDILOL 6.25 MG TABS TAKE 1 TABLET BY MOUTH TWICE DAILY carvedilol 63921174959 Radha Cruz APRN TAMSULOSIN HCL 0.4 MG CAPS TAKE 1 CAPSULE BY MOUTH AT BEDTIME tamsulosin 38633399660 Radha Pranavshabana TURNERN FAMOTIDINE 20 MG TABS TAKE 1 TABLET BY MOUTH TWICE DAILY FOR REFLUX OR HEARTBURN famotidine 14655501780 Radha Pranavshabana TURNERN ATORVASTATIN CALCIUM 20 MG TABS TAKE 1 TABLET BY MOUTH AT BEDTIME atorvastatin 39895738272 Radha Cruz APRN IBUPROFEN 800 MG TABS Take 1 tablet by mouth every eight hours as needed 12/05 ibuprofen 19103839965 Lazara Wang [employer] IBUPROFEN 800 MG TABS TAKE 1 TABLET BY MOUTH EVERY 8 HOURS NEEDED ibuprofen 36104584497 Lazara Wang APRN ALBUTEROL SULFATE HFA 108 (90 Base) MCG/ACT AERS Inhale 2 puff by mouth four times a day as needed 10/31 albuterol sulfate 62297937186 Nicole CruzdianelysPerkinsN ProAir HFA 90 mcg/actuation HFA aerosol inhaler INHALE 2 PUFFS BY MOUTH FOUR TIMES DAILY NEEDED albuterol sulfate 27596401597 Radha Cruz APRN OMEPRAZOLE 20 MG CPDR Take 1 capsule by mouth once a day as needed FOR HEARTBURN OR REFLUX NOT IMPROVED BY FAMOTIDINE. 10/11 omeprazole 35192978713 Radha Curshabana TURNERN OMEPRAZOLE 20 MG CPDR TAKE ONE CAPSULE BY MOUTH EVERY DAY NEEDED FOR HEARTBURN OR REFLUX NOT IMPROVED BY FAMOTIDINE omeprazole 47643987111 Radha Cruz APRN BUSPIRONE HCL 15 MG TABS TAKE 1 TABLET BY MOUTH FOUR TIMES DAILY buspirone 80149078036 Radha Cruz APRN TAMSULOSIN HCL 0.4 MG CAPS Take 1 capsule by mouth at bedtime tamsulosin 89889227278 Radha Cruz APRN ATORVASTATIN CALCIUM 20 MG TABS Take 1 tablet by mouth at bedtime atorvastatin 54106764590 Radha Cruz APRN METHOCARBAMOL 500 MG TABS 1 tablet by mouth every six to eight hours FOR MUSCLE SPASM methocarbamol 21011246994 Radha Cruz APRN OMEPRAZOLE 20 MG CPDR Take 1 capsule by mouth once a day as needed FOR HEARTBURN OR REFLUX NOT IMPROVED BY FAMOTIDINE. omeprazole 99889271881 Radha Cruz APRN CARVEDILOL 3.125 MG TABS TAKE 1 TABLET BY MOUTH TWICE DAILY 06/18 carvedilol 01373202206 Lazara Askchauncey TURNERN LORATADINE 10 MG TABS Take 1 tablet by mouth once a day for allergies loratadine 48739349035 Radha Cruz APRN CARVEDILOL 6.25 MG TABS Take 1 tablet by mouth twice a day carvedilol 46626946487 Radha Cruz APRN VITAMIN D3 50 MCG (1999 UT) TABS Take 1 tablet by mouth once a day cholecalciferol (vitamin d3) 36175775237 Radha Cruz APRN FAMOTIDINE 20 MG TABS Take 1 tablet by mouth twice a day FOR REFLUX/HEARTBU RN. famotidine 40430676139 Radha Cruz APRN METHOCARBAMOL 500 MG TABS Take 1 tablet by mouth every six to eight hours as needed for pain 07/04 methocarbamol 30937115562 Radha Curtsinger [employer] METHOCARBAMOL 500 MG TABS TAKE 1 TABLET BY MOUTH EVERY 6 TO 8 HOURS NEEDED FOR PAIN methocarbamol 18640690494 Radha Larisainger [employer] CARVEDILOL 3.125 MG TABS Take 1 tablet by mouth twice a day 07/03 carvedilol 41878333899 Radha Anthony [employer] OMEPRAZOLE 20 MG CPDR Take 1 capsule by mouth once a day as needed 07/03 omeprazole 98037227247 Radha Anthony [employer] ATORVASTATIN CALCIUM 20 MG TABS Take 1 tablet by mouth every night 07/03 atorvastatin 43751594092 Radha Cruz [employer] Flomax 0.4 mg capsule Take 1 capsule by mouth every night 07/03 tamsulosin 98393088529 Radha Cruz [employer] OMEPRAZOLE 20 MG CPDR TAKE 1 CAPSULE BY MOUTH EVERY DAY NEEDED omeprazole 04628608200 Lazara Askren [employer] CARVEDILOL 3.125 MG TABS TAKE 1 TABLET BY MOUTH TWICE DAILY carvedilol 75192149649 Lazara Askren [employer] TAMSULOSIN HCL 0.4 MG CAPS TAKE 1 CAPSULE BY MOUTH EVERY NIGHT tamsulosin 95143819552 Lazara Askren [employer] ATORVASTATIN CALCIUM 20 MG TABS TAKE 1 TABLET BY MOUTH EVERY NIGHT [facility] 46000819483 [facility] [employer] LORATADINE 10 MG TABS Take 1 tablet by mouth once a day 06/19 loratadine 65370615724 Radha Anthony [employer] LORATADINE 10 MG TABS TAKE 1 TABLET BY MOUTH EVERY DAY FOR ALLERGIES loratadine 97529133646 Radha Curtsinger [employer] LORATADINE 10 MG TABS Take 1 tablet by mouth once a day loratadine 42471960891 Radha Cruz [employer] METHOCARBAMOL 500 MG TABS Take 1 tablet by mouth every six to eight hours as needed for pain methocarbamol 39596876589 Radha Cruz APRN CARVEDILOL 3.125 MG TABS Take 1 tablet by mouth twice a day carvedilol 71804687015 Radha Cruz APRN ALBUTEROL SULFATE HFA 108 (90 Base) MCG/ACT AERS Inhale 2 puff by mouth four times a day as needed albuterol sulfate 84624354457 Rdaha Cruz APRN Flomax 0.4 mg capsule Take 1 capsule by mouth every night tamsulosin 31714011678 Radha Cruz APRN ONDANSETRON HCL 4 MG TABS Take 1 tablet by mouth every six to eight hours as needed ondansetron hcl 26228712331 Radha Cruz APRN ATORVASTATIN CALCIUM 20 MG TABS Take 1 tablet by mouth every night atorvastatin 46366677036 Radha Cruz APRN OMEPRAZOLE 20 MG CPDR Take 1 capsule by mouth once a day as needed omeprazole 79040581615 Radha Cruz APRN METHOCARBAMOL 500 MG TABS Take 1 tablet by mouth every six to eight hours as needed 0 11/03 METHOCARBAMOL Jamialiset Pichardo [employer] METHOCARBAMOL 500 MG TABS TAKE 1 TABLET BY MOUTH EVERY 6 TO 8 HOURS NEEDED FOR PAIN methocarbamol 63836193759 Radha Cruz APRN ALBUTEROL SULFATE HFA 108 (90 Base) MCG/ACT AERS Inhale 2 puff by mouth four times a day as needed albuterol sulfate 50259500229 Mary Anne Menon [employer] SUBOXONE 8-2 MG FILM buprenorphine-nal oxone 44208796576 [facility] OMEPRAZOLE 20 MG CPDR Take 1 capsule by mouth once a day as needed omeprazole 74083781094 Jamia Pichardo APRN CARVEDILOL 3.125 MG TABS Take 1 tablet by mouth twice a day carvedilol 04832140265 Radha Cruz APRN METHOCARBAMOL 500 MG TABS Take 1 tablet by mouth every six to eight hours as needed METHOCARBAMOL Jamia Pichardo APRN IBUPROFEN 800 MG TABS Take 1 tablet by mouth every eight hours as needed ibuprofen 31896897014 Radha Cruz APRN ONDANSETRON HCL 4 MG TABS Take 1 tablet by mouth every six to eight hours as needed ondansetron hcl 46608826055 Jamia Pichardo APRN DESVENLAFAXINE ER 50 MG [id number] Take 1 tablet by mouth once a day desvenlafaxine 97687631406 Jamia Pichardo APRN ATORVASTATIN CALCIUM 20 MG TABS Take 1 tablet by mouth every night atorvastatin 93751194515 Jamia Pichardo APRN LORATADINE 10 MG TABS Take 1 tablet by mouth once a day loratadine 57770166758 Mary Anne Menon APRN DOXEPIN HCL 50 MG CAPS Take 1-2 capsule by mouth every night doxepin 59819921281 Jamia Pichardo APRN Flomax 0.4 mg capsule Take 1 capsule by mouth every night tamsulosin 73821681822 Mary Anne Menon APRN IBUPROFEN 800 MG TABS TAKE 1 TABLET BY MOUTH EVERY 8 HOURS NEEDED. USE SPARINGLY. IBUPROFEN 81141854623 Radha Cruz APRN SUBOXONE 8-2 MG FILM BUPRENORPHINE HCL-NALOXONE HCL 25001797859 Radha Cruz APRN CONCERTA 54 MG CR-TABS TAKE 1 TABLET BY MOUTH EACH MORNING PER PSYCHIATRY 08/10 METHYLPHENIDATE HCL 63151773556 Radha Cruz APRN FISH OIL 1000 MG CAPS TAKE 1 CAPSULE BY MOUTH 2 TIMES A DAY 08/10 OMEGA-3 FATTY ACIDS 95823268204 Jamia Pichardo APRN ATORVASTATIN CALCIUM 20 MG TABS TAKE 1 TABLET BY MOUTH AT BEDTIME ATORVASTATIN CALCIUM 60997045300 Radha Cruz APRN FISH OIL 1000 MG CAPS TAKE 1 CAPSULE BY MOUTH 2 TIMES A DAY OMEGA-3 FATTY ACIDS 66962672587 Jamia Pichardo APRN METHOCARBAMOL 500 MG TABS TAKE 1 TABLET BY MOUTH EVERY 6 TO 8 HOURS NEEDED FOR PAIN METHOCARBAMOL 01051781620 Radha Cruz APRN DESVENLAFAXINE ER 50 MG [id number] TAKE 1 TABLET BY MOUTH EVERY DAY PER PSYCHIATRY DESVENLAFAXINE 13516243153 Jamia Pichardo APRN DOXEPIN HCL 50 MG CAPS TAKE 1 TO 2 CAPSULES BY MOUTH EVERY NIGHT AT BEDTIME PER PSYCHIATRY DOXEPIN HCL 08614146802 Jamia Pichardo APRN ACETAMINOPHEN 500 MG TABS TAKE 1 TABLETS BY MOUTH EVERY 6 HOURS NEEDED FOR PAIN OR FEVER. MAX 2000MG PER DAY. 12/28 ACETAMINOPHEN 08317372725 Radha Cruz APRN CONCERTA 54 MG CR-TABS TAKE 1 TABLET BY MOUTH EACH MORNING PER PSYCHIATRY METHYLPHENIDATE HCL 40348753782 Jamia Pichardo APRN VITAMIN D3 1.25 MG (10515 UT) CAPS TAKE 1 CAPSULE BY MOUTH ONCE PER WEEK 12/28 CHOLECALCIFEROL 05378983551 Radha Cruz APRN ATORVASTATIN CALCIUM 10 MG TABS TAKE 1 TABLET BY MOUTH EVERY NIGHT AT BEDTIME 12/28 ATORVASTATIN CALCIUM 13726728907 Radha Cruz APRN OMEPRAZOLE 20 MG CPDR TAKE 1 CAPSULE BY MOUTH EVERY DAY NEEDED OMEPRAZOLE 57888043442 Radha Cruz APRN ONDANSETRON HCL 4 MG TABS TAKE 1 TABLET BY MOUTH EVERY 6 TO 8 HOURS NEEDED FOR NAUSEA ONDANSETRON HCL 10646136228 Radha Cruz APRN ACETAMINOPHEN 500 MG TABS TAKE 1 TABLETS BY MOUTH EVERY 6 HOURS NEEDED FOR PAIN OR FEVER. MAX 2000MG PER DAY. ACETAMINOPHEN [id number] Radha Cruz APRN IBUPROFEN 800 MG TABS TAKE 1 TABLET BY MOUTH EVERY 8 HOURS NEEDED 10/23 IBUPROFEN [id number] Radha Cruz APRN OMEPRAZOLE 20 MG CPDR TAKE 1 CAPSULE BY MOUTH EVERY DAY NEEDED OMEPRAZOLE [id number] Radha Cruz APRN CARVEDILOL 3.125 MG TABS TAKE 1 TABLET BY MOUTH TWICE DAILY CARVEDILOL [id number] Radha Curtsinger BATTERY VENT PLUG INSERTER ALBUTEROL SULFATE HFA 108 (90 Base) MCG/ACT AERS INHALE 2 PUFFS BY MOUTH FOUR TIMES DAILY NEEDED FOR WHEEZING ALBUTEROL SULFATE [id number] Radha Pranavtsinger BATTERY VENT PLUG INSERTER CVS MELATONIN 5 MG TABS TAKE 1 TO 2 TABLETBY MOUTH EVERY NIGHT AT BEDTIME PER PSYCHIATRY 07/11 MELATONIN [id number] Radha Curtsinger BATTERY VENT PLUG INSERTER HYDROXYZINE HCL 25 MG TABS TAKE 1 TABLET BY MOUTH EVERY 6 HOURS NEEDED FOR ANXIETY PER PSYCHIATRY 0 07/11 HYDROXYZINE HCL [id number] Radha Curtsinger BATTERY VENT PLUG INSERTER ATORVASTATIN CALCIUM 10 MG TABS TAKE 1 TABLET BY MOUTH EVERY NIGHT AT BEDTIME ATORVASTATIN CALCIUM [id number] Radha Curtsinger BATTERY VENT PLUG INSERTER CARVEDILOL 3.125 MG TABS TAKE 1 TABLET BY MOUTH TWICE DAILY( MUST KEEP APPOINTMENT) CARVEDILOL [id number] Radha Larisainger BATTERY VENT PLUG INSERTER LORATADINE 10 MG TABS TAKE 1 TABLET BY MOUTH EVERY DAY FOR ALLERGIES LORATADINE [id number] Radha Pranavjayneinger BATTERY VENT PLUG INSERTER ONDANSETRON 8 MG TBDP DISSOLVE 1 TABLET ON THE TONGUE TWICE DAILY NEEDED FOR NAUSEA ONDANSETRON [id number] Radha Curtsinger BATTERY VENT PLUG INSERTER ONDANSETRON ODT 8MG TABLETS DISSOLVE ONE TABLET BY MOUTH TWICE DAILY NEEDED FOR NAUSEA ONDANSETRON [id number] Radha Pranavjayneinger BATTERY VENT PLUG INSERTER VITAMIN D3 1.25 MG (71139 UT) CAPS TAKE 1 CAPSULE BY MOUTH ONCE PER WEEK CHOLECALCIFEROL [id number] Radha Pranavjayneinger BATTERY VENT PLUG INSERTER CONCERTA 54 MG CR-TABS TAKE 1 TABLET BY MOUTH EACH MORNING PER PSYCHIATRY METHYLPHENIDATE HCL 91998667331 Radha Pranavtsinger BATTERY VENT PLUG INSERTER ZYPREXA 10 MG ORAL TABLET PER PSYCHIATRY 0 11/19 OLANZAPINE [id number] Radha Curtsinger BATTERY VENT PLUG INSERTER ZYPREXA 10 MG ORAL TABLET PER PSYCHIATRY OLANZAPINE 32146114789 Radha Pranavtsinger BATTERY VENT PLUG INSERTER OXCARBAZEPINE 300 MG TABS TAKE 1 TABLET BY MOUTH TWICE A DAY PER PSYCHIATRY 08/06 OXCARBAZEPINE 31920215556 Radha Curtsinger BATTERY VENT PLUG INSERTER PROPRANOLOL HCL 10 MG TABS TAKE 2 TABLETS BY MOUTH EVERY NIGHT AT BEDTIME NEEDED FOR ANXIETY PER PSYCHIATRY 08/06 PROPRANOLOL HCL 77945482556 Radha Curtsinger BATTERY VENT PLUG INSERTER VENTOLIN HFA 108 (90 Base) MCG/ACT AERS INHALE 2 INHALATIONS BY MOUTH FOUR TIMES DAILY NEEDED FOR WHEEZING ALBUTEROL SULFATE 58531669162 Radha Pranavtsinger BATTERY VENT PLUG INSERTER OMEPRAZOLE 20 MG CPDR TAKE 1 CAPSULE BY MOUTH EVERY DAY OMEPRAZOLE [id number] Radha Curtsinger BATTERY VENT PLUG INSERTER TAMSULOSIN 0.4MG CAPSULES TAKE 1 CAPSULE BY MOUTH EVERY NIGHT AT BEDTIME TAMSULOSIN HCL 72898779945 Radha Pranavtsinger BATTERY VENT PLUG INSERTER LORATADINE 10 MG TABS TAKE 1 TABLET BY MOUTH 1 TIME A DAY NEEDED FOR ALLERGIES, PLEA LORATADINE 26052092035 Radha Pranavinger BATTERY VENT PLUG INSERTER CARVEDILOL 3.125 MG TABS TAKE 1 TABLET BY MOUTH TWICE DAILY CARVEDILOL 17398883108 Radha Pranavinger BATTERY VENT PLUG INSERTER METHOCARBAMOL 500 MG TABS TAKE 1 TABLET BY MOUTH EVERY 6 TO 8 HOURS NEEDED FOR PAIN METHOCARBAMOL 98959589180 Radha Curtsinger BATTERY VENT PLUG INSERTER TAMIFLU 75 MG CAPS TAKE 1 CAPSULE BY MOUTH TWICE A DAY 06/13 OSELTAMIVIR PHOSPHATE 04457534792 Radha Pranavinger BATTERY VENT PLUG INSERTER KLONOPIN 0.5 MG TABS TAKE 1 TABLET BY MOUTH 3 TIMES A DAY NEEDED FOR ANXIETY PER PSYCHIATRY 06/08 CLONAZEPAM 83131228453 Radha Pranavtsinger BATTERY VENT PLUG INSERTER HYDROCODONE-ACETA MINOPHEN 10-325 MG TABS TAKE 1 TABLET BY MOUTH EVERY 6 HOURS NEEDED FOR PAIN 06/08 HYDROCODONE-ACETA MINOPHEN 98876950638 Radha Pranavtsinger BATTERY VENT PLUG INSERTER HYDROXYZINE HCL 25 MG TABS TAKE 1 TABLET BY MOUTH EVERY 6 HOURS NEEDED FOR ANXIETY PER PSYCHIATRY HYDROXYZINE HCL 29996877915 Radha Curtsinger BATTERY VENT PLUG INSERTER KLONOPIN 0.5 MG TABS TAKE 1 TABLET BY MOUTH 3 TIMES A DAY NEEDED FOR ANXIETY PER PSYCHIATRY CLONAZEPAM 13463960773 Radha Pranavtsinger BATTERY VENT PLUG INSERTER DESVENLAFAXINE ER 50 MG [id number] TAKE 1 TABLET BY MOUTH EVERY DAY PER PSYCHIATRY DESVENLAFAXINE 46869711549 Radha Curtsinger BATTERY VENT PLUG INSERTER DOXEPIN HCL 50 MG CAPS TAKE 1 TO 2 CAPSULES BY MOUTH EVERY NIGHT AT BEDTIME PER PSYCHIATRY DOXEPIN HCL 80089281373 Radha Curtsinger BATTERY VENT PLUG INSERTER CVS MELATONIN 5 MG TABS TAKE 1 TO 2 TABLETBY MOUTH EVERY NIGHT AT BEDTIME PER PSYCHIATRY MELATONIN 76163882072 Radha Curtsinger BATTERY VENT PLUG INSERTER OXCARBAZEPINE 300 MG TABS TAKE 1 TABLET BY MOUTH TWICE A DAY PER PSYCHIATRY OXCARBAZEPINE 28464608666 Radha Curtsinger BATTERY VENT PLUG INSERTER PROPRANOLOL HCL 10 MG TABS TAKE 2 TABLETS BY MOUTH EVERY NIGHT AT BEDTIME NEEDED FOR ANXIETY PER PSYCHIATRY PROPRANOLOL HCL 86427082145 Radha Curtsinger BATTERY VENT PLUG INSERTER LORATADINE 10 MG TABS TAKE 1 TABLET BY MOUTH 1 TIME A DAY NEEDED FOR ALLERGIES LORATADINE 40052286536 Radha Curtsinger BATTERY VENT PLUG INSERTER ZOFRAN ODT 8 MG ORAL TABLET DISINTEGRATING TAKE ONE TABLET BY MOUTH TWICE DAILY NEEDED FOR NAUSEA ONDANSETRON 37731118693 Radha Larisainger BATTERY VENT PLUG INSERTER FLOMAX 0.4 MG ORAL CAPSULE TAKE ONE CAPSULE BY MOUTH EVERYNIGHT AT BEDTIME TAMSULOSIN HCL 45317318550 Radha Curtsinger BATTERY VENT PLUG INSERTER PROPRANOLOL HCL 10 MG TABS TAKE 2 TABLETS BY MOUTH EVERY NIGHT AT BEDTIME NEEDED FOR ANXIETY PROPRANOLOL HCL 90618933533 Radha Curtsinger BATTERY VENT PLUG INSERTER OXCARBAZEPINE 300 MG TABS TAKE 1 TABLET BY MOUTH TWICE A DAY OXCARBAZEPINE 26126525876 Radha Curtsinger BATTERY VENT PLUG INSERTER CVS MELATONIN 5 MG TABS TAKE 1 TO 2 TABLETBY MOUTH EVERY NIGHT AT BEDTIME MELATONIN 35355630395 Radha Curtsinger BATTERY VENT PLUG INSERTER DOXEPIN HCL 50 MG CAPS TAKE 1 TO 2 CAPSULES BY MOUTH EVERY NIGHT AT BEDTIME DOXEPIN HCL 05594732602 Radha Cruz BATTERY VENT PLUG INSERTER DESVENLAFAXINE ER 50 MG [id number] TAKE 1 TABLET BY MOUTH EVERY DAY DESVENLAFAXINE 26190893780 Radha Anthony BATTERY VENT PLUG INSERTER HYDROCODONE-ACETA MINOPHEN 10-325 MG TABS TAKE 1 TABLET BY MOUTH EVERY 6 HOURS NEEDED FOR PAIN HYDROCODONE-ACETA MINOPHEN 79655564579 Radha Anthony BATTERY VENT PLUG INSERTER VENTOLIN HFA 108 (90 Base) MCG/ACT AERS TAKE 2 INHALATIONS 4 TIMES A DAY NEEDED FOR WHEEZING ALBUTEROL SULFATE 79645483980 Radha Cruz BATTERY VENT PLUG INSERTER KLONOPIN 0.5 MG TABS TAKE 1 TABLET BY MOUTH 3 TIMES A DAY NEEDED FOR ANXIETY CLONAZEPAM 04356152147 Radha Cruz BATTERY VENT PLUG INSERTER OMEPRAZOLE 20 MG CPDR TAKE 1 CAPSULE BY MOUTH ONCE A DAY OMEPRAZOLE [id number] Radha Cruz APRN METHOCARBAMOL 500 MG TABS TAKE 1 TABLET BY MOUTH EVERY 6-8 HOURS NEEDED FOR PAIN METHOCARBAMOL 90141101351 Radha Cruz BATTERY VENT PLUG INSERTER IBUPROFEN 800 MG TABS TAKE 1 TABLET BY MOUTH EVERY 8 HOURS NEEDED IBUPROFEN [id number] Radha Cruz BATTERY VENT PLUG INSERTER HYDROXYZINE HCL 25 MG TABS TAKE 1 TABLET BY MOUTH EVERY 6 HOURS NEEDED FOR ANXIETY HYDROXYZINE HCL 86342220086 Radhaliset Cruz BATTERY VENT PLUG INSERTER CARVEDILOL 3.125 MG TABS TAKE 1 TABLET BY MOUTH 2 TIMES A DAY CARVEDILOL 98482792447 Radha Cruz BATTERY VENT PLUG INSERTER ATORVASTATIN CALCIUM 10 MG TABS TAKE 1 TABLET BY MOUTH AT BEDTIME ATORVASTATIN CALCIUM [id number] Radha Cruz BATTERY VENT PLUG INSERTER Medications Administered No information available. Allergies, Adverse Reactions, Alerts Allergy Name Reaction Description Start Date Severity Statu s Provider AMITRIPTLYNE Critical Active Radha C radha BATTERY VENT PLUG INSERTER TRAMADOL Critical Active Radha Jeff mike BATTERY VENT PLUG INSERTER CODEINE Critical Active Radha Jeff mike BATTERY VENT PLUG INSERTER TRAZADONE Critical Active Radha Jeff mike BATTERY VENT PLUG INSERTER LISINOPRIL Moderate Active Radha donald BATTERY VENT PLUG INSERTER Results Date Name Value Unit Range Flag Description Office Visit: EST CARE; PUBLIC AREA ATTENDANT CECIL LUMBAR PAIN, HTN, HLD, DEP/ANXIETY, ETC LDL GOAL <70 mg/dL LDL target l evel Lab Report: LIPID PANEL WITH REFLEX TO DIRECT LDL, LIPID PANEL WITH REFL ... HGBA1C 5.2 % OF TOTAL HGB % <5.7 N Hemoglobin A1c/Hemoglobin, total in Blood - % HEP C AB REACTIVE NON-REACTI A Hepatiti s C virus Ab [Presence] in Serum HB CORE IGM NON-REACTIVE NON-REACTI N H epatitis B virus core IgG+IgM Ab [Presence] in Serum or Plasma by Immunoassay HBSAG NON-REACTIVE NON-REACTI N Hepat itis B virus surface Ag [Units/volume] in Serum ANTI-HAV IGM NON-REACTIVE NON-REACTI N Hepatitis A virus IgM Ab [Presence] in Serum or Plasma by Immunoassay VIT D 25-OH 20 ng/mL 30-100 L 25-Hydrox ycalciferol [Mass/volume] in Serum or Plasma EGFR IF AFA 116 mL/min/1. 73m2 >OR = 60 N Glomerular filtratio n rate/1.73 sq M.predicted among blacks [Volume Rate/Area] in Serum, Plasma or Blood by Creatinine-based formula (MDRD) EGFR 100 mL/min/1. 73m2 >OR = 60 N Glomerular filtratio n rate/1.73 sq M.predicted [Volume Rate/Area] in Serum, Plasma or Blood by Creatinine-based formula (MDRD) TSH 1.89 u[iU]/mL 0.40-4.50 N Thyrotropi n [Units/volume] in Serum or Plasma PSA 0.35 ng/mL < OR = 4.00 N Prostate specific Ag [Mass/volume] in Serum or Plasma BASO % MANU 0.9 % N basophils as percent of blood leukocytes, manual count EOS % MANU 2.9 % N eosinophil s as percent of blood leukocytes, manual count MONOCYTE % 7.3 % N Monocytes/ 100 leukocytes in Blood by Automated count LYMPH% P BLD 39.5 % N lymphocy bertrand as percent of blood leukocytes PMN % 49.4 % N Neutrophils/1 00 leukocytes in Blood by Automated count ABS BASOS 92 {Cells}/u L 0-200 N Basophils [#/volume] in Blood ABS EOS 296 {Cells}/u L 15-500 N Eosinophils [#/volume] in Blood ABS MONOS 745 {Cells}/u L 200-950 N Monocytes [#/volume] in Blood ABSLYMPHCT 4029 {Cells}/u L 850-3900 H Lymphocytes [#/volume] in Blood ABS NEUTROPH 5039 CELLS/UL 10*3/uL 0004-3148 N Neutrophils [#/volume] in Blood MPV 10.7 fL 7.5-12.5 N Platelet tyler n volume [Entitic volume] in Blood by [place] PLATELETK/UL 382 THOUSAND/UL 10*3/uL 140-400 N platelet count RDW 13.2 % 11.0-15.0 N Erythrocyte distribution width [Ratio] by Automated count OL-MCHC 34.6 g/dL 32.0-36.0 N mean corpus cular hemoglobin concentration, rbc MCH 28.9 pg 27.0-33.0 N MCH [Entiti c mass] by Automated count MCV 83.7 fL 80.0-100.0 N MCV [Entit ic volume] by Automated count HCT 42.5 % 38.5-50.0 N Hematocrit [Volume Fraction] of Blood by Automated count HGB 14.7 g/dL 13.2-17.1 N Hemoglobin [Mass/volume] in Blood RBC M/UL 5.08 MILLION/UL 10*6/uL 4.20-5.80 N re d blood count WBC CT BLOOD 10.2 10*3/uL 3.8-10.8 N leukocy te count, blood SGPT (ALT) 13 U/L 9-46 N Alanine aminotransferase [Enzymatic activity/volume] in Serum or Plasma SGOT (AST) 15 U/L 10-35 N Aspartate aminotransferase [Enzymatic activity/volume] in Serum or Plasma ALK PHOS 110 U/L 35-144 N Alkaline lynn sphatase [Enzymatic activity/volume] in Blood BILI TOTAL 0.3 mg/dL 0.2-1.2 N Bilirubin. total [Mass/volume] in Serum or Plasma A/G RATIO 1.5 (calc) 1.0-2.5 N Albumin/ Globulin [Mass Ratio] in Serum or Plasma GLOBULIN TOT 3.3 G/DL (CALC) g/dL 1.9-3.7 N Globulin [Mass/volume] in Serum ALBUMIN EOP 4.8 g/dL 3.6-5.1 N Albumin [ Mass/volume] in Serum or Plasma by Electrophoresis PROTEIN, TOT 8.1 g/dL 6.1-8.1 N Protein [Mass/volume] in Serum or Plasma CALCIUM 9.8 mg/dL 8.6-10.3 N Calcium [Moles/volume] in Serum or Plasma CO2 29 mmol/L 20-32 N Carbon dioxid e, total [Moles/volume] in Venous blood CHLORIDE BLD 99 mmol/L 98-110 N chloride , blood POTASSIUM 4.4 mmol/L 3.5-5.3 N Potassium [Moles/volume] in Serum or Plasma SODIUM 135 mmol/L 135-146 N Sodium [Moles /volume] in Serum or Plasma BUN/CREAT NOT APPLICABLE (calc) 6-22 Urea nitrogen/Creatinine [Mass Ratio] in Serum or Plasma CREATININE 0.99 mg/dL 0.70-1.30 N Creatini ne [Mass/volume] in Serum or Plasma BUN 12 mg/dL 7-25 N Urea nitrogen [Mass/volume] in Serum or Plasma GLUCOSE SER 95 mg/dL 65-99 N Glucose [ Mass/volume] in Serum or Plasma TLDLDIR 114 mg/dL <100 H Cholesterol i n LDL [Mass/volume] in Serum or Plasma - mg/dL NON-HDL CHOL 169 MG/DL (CALC) mg/dL <130 H cholesterol, non -HDL, total CHOL/HDL % 6.1 (calc) <5.0 H cholest cole/HDL ratio, serum, percent LDL See Note Below mg/dL (calc) mg/dL Cholesterol in L DL [Mass/volume] in Serum or Plasma - mg/dL TRIGLYC TOT 537 mg/dL <150 H Triglycer misha [Mass/volume] in Serum or Plasma - mg/dL HDL 33 mg/dL >OR = 40 L Cholesterol in HDL [Mass/volume] in Serum or Plasma - mg/dL CHOLESTEROL 202 mg/dL <200 H Cholester ol [Mass/volume] in Serum or Plasma - mg/dL Plan of Care Type Date Detail Referral Pain Treatment [facility], [address] [place] [address], [address] [facility] Adults [facility], [address], Dr[address] Fito Espinoza, [place], [address] [facility] Adults [facility], [address], [address] Fito Espinoza, [place], [address] Referral excluded fr report: [facility]erral [facility] Adults [facility], [address], [address] Fito Espinoza, [place], [address] Referral [facility]-Pain Management Adults [facility], [address], Dr[address] Fito Espinoza, [place], [address] Referral excluded fr om report: Pending order T1 Lipid Panel Pending Order exclud ed from report: Pending order T1 CBC with diff Pending order T1 CMP Pending order T1 Lipid Panel Pending order T1 TSH reflex to free T4 Pending order T1 Prostate Scre ening Pending order T1 CBC with diff Pending order T1 CMP Pending order T1 Lipid Panel Pending order T1 TSH reflex to free T4 Pending order T2 Vitamin D 25 Hydroxy Pending order T1 CMP Pending order T1 TSH reflex to free T4 Pending order T1 CMP Pending order T1 CMP Pending order T1 CBC with diff Pending order T1 Lipid Panel Pending order T1 TSH reflex to free T4 Pending order T2 Vitamin D 25 Hydroxy Pending order T1 Acute Hepatit s Panel Pending order Other Pending order T1 CMP Pending order T1 Lipid Panel Pending order T1 CBC with diff Pending order T1 CMP Pending order T1 Lipid Panel Pending order T1 TSH reflex to free T4 Pending order T2 Vitamin D 25 Hydroxy Pending order T1 Prostate Scre ening Pending order T1 CBC with diff Pending order T1 CMP Pending order T1 HGBA1c Pending order T1 Lipid Panel Pending order T1 TSH reflex to free T4 Pending order T2 Vitamin D 25 Hydroxy Pending order T1 CMP Pending order T1 BMP Pending order T1 CBC with diff Pending order T1 CMP Pending order T1 HGBA1c Pending order T1 Lipid Panel Pending order T1 TSH reflex to free T4 Pending order T1 Prostate Scre ening Patient education Patient Educat ion Given Patient education Patient Educat ion Given Patient education Patient Educat ion Given Patient education Patient Educat ion Given Patient education Medications Patient education Patient Educat ion Given Patient education Medications Patient education Patient Educat ion Given Patient education Medications Patient education Patient Educat ion Given Patient education Patient Educat ion Given Patient education Patient Educat ion Given Patient education Patient Educat ion Given Patient education Patient Educat ion Given Patient education Medications Patient education Patient Educat ion Given Patient education Patient Educat ion Given Patient education Medications Patient education Patient Educat ion Given Procedures Code Procedure Name Date Entry Date [facility] 87839 T1 Lipid Panel CPT-3077F Most recent systolic blood pressure >=140 mm Hg CPT-3079F Most recent diastoli c blood pressure 80-89 mm Hg 4004F Patient screened for tobacco use and received tobacco cessation intervention [facility]-[id number] Medication Reconciliation CPT-1159F Medication list docu mented in medical record SCT-[id number] Medication Reconciliation CPT-3074F Most recent systolic blood pressure <130 mm Hg CPT-3078F Most recent diastoli c blood pressure <80 mm Hg [facility] 6399 T1 CBC with diff [facility] 75850 T1 CMP [facility] 66162 T1 Lipid Panel [facility] 43560 T1 TSH reflex to free T4 06/22/02 [facility] 5363 T1 Prostate Screening 01/14 SCT-[id number] Medication Reconciliation CPT-3074F Most recent systolic blood pressure <130 mm Hg CPT-3078F Most recent diastoli c blood pressure <80 mm Hg SCT-[id number] Medication Reconciliation CPT-3077F Most recent systolic blood pressure >=140 mm Hg CPT-3078F Most recent diastoli c blood pressure <80 mm Hg CPT-3077F Most recent systolic blood pressure >=140 mm Hg CPT-3079F Most recent diastoli c blood pressure 80-89 mm Hg 09520 Fluzone Quadrivalent CPT-23685 IMADM >18YR IM R[address]TE [address] VAC/TOXOID 02/04 SCT-[id number] Medication Reconciliation [facility] 6399 T1 CBC with diff [facility] 30416 T1 CMP [facility] 10567 T1 Lipid Panel [facility] 39466 T1 TSH reflex to free T4 24 [facility] 46658 T2 Vitamin D 25 Hydroxy 2020 CPT-1159F Medication list docu mented in medical record CPT-3075F Most recent systolic blood pressure 130-139 mm Hg SCT-[id number] Medication Reconciliation CPT-3074F Most recent systolic blood pressure <130 mm Hg CPT-3079F Most recent diastoli c blood pressure 80-89 mm Hg CPT-3077F Most recent systolic blood pressure >=140 mm Hg CPT-3079F Most recent diastoli c blood pressure 80-89 mm Hg CPT-1159F Medication list docu mented in medical record SCT-[id number] Medication Reconciliation [facility] 66293 T1 CMP [facility] 97760 T1 TSH reflex to free T4 202 05/16/29 [facility] 04880 T1 CMP CPT-3075F Most recent systolic blood pressure 130-139 mm Hg CPT-3079F Most recent diastoli c blood pressure 80-89 mm Hg SCT-[id number] Medication Reconciliation [facility] 22759 T1 CMP [facility] 6399 T1 CBC with diff [facility] 01001 T1 Lipid Panel [facility] 26391 T1 TSH reflex to free T4 202 [facility] 14153 T2 Vitamin D 25 Hydroxy 2019 CPT-3075F Most recent systolic blood pressure 130-139 mm Hg CPT-3079F Most recent diastoli c blood pressure 80-89 mm Hg SCT-[id number] Medication Reconciliation CPT-43224 Engerix-B Intramuscu lar Injectable 20 MCG/ML CPT-30080 IMADM >18YR IM ROUTE 1ST VAC/TOXOID 12/21 SCT-[id number] Medication Reconciliation CPT-20410 Engerix-B Intramuscu lar Injectable 20 MCG/ML CPT-05914 Hep A adult dosage 1 CPT-16870 IMADM >18YR IM ROUTE 1ST VAC/TOXOID 10/22 CPT-72082 IMADM >18YR IM ROUTE EA ADDL VAC/TOXOID 2 [facility] Other Other [facility] 42790 T1 Acute Hepatits Panel 2019 Other Other SCT-[id number] Medication Reconciliation [facility] 04837 T1 CMP [facility] 26654 T1 Lipid Panel [facility] 37666 T1 CMP [facility] 63200 T1 Lipid Panel CPT-3075F Most recent systolic blood pressure 130-139 mm Hg CPT-3079F Most recent diastoli c blood pressure 80-89 mm Hg SCT-[id number] Medication Reconciliation SCT-[id number] Medication Reconciliation CPT-3074F Most recent systolic blood pressure <130 mm Hg CPT-3078F Most recent diastoli c blood pressure <80 mm Hg [facility] 6399 T1 CBC with diff [facility] 90738 T1 CMP [facility] 00272 T1 Lipid Panel [facility] 52555 T1 TSH reflex to free T4 201 01/19/24 [facility] 20180 T2 Vitamin D 25 Hydroxy 2018 [facility] 5363 T1 Prostate Screening 0 12/04 SCT-[id number] Medication Reconciliation CPT-3075F Most recent systolic blood pressure 130-139 mm Hg CPT-3079F Most recent diastoli c blood pressure 80-89 mm Hg SCT-[id number] Medication Reconciliation CPT-3075F Most recent systolic blood pressure 130-139 mm Hg CPT-3079F Most recent diastoli c blood pressure 80-89 mm Hg [facility] 5363 T1 Prostate Screening 11/19 [facility] 6399 T1 CBC with diff [facility] 94603 T1 CMP [facility] 496 T1 HGBA1c [facility] 92875 T1 Lipid Panel [facility] 55806 T1 TSH reflex to free T4 201 12/18/08 [facility] 18104 T2 Vitamin D 25 Hydroxy 2017 [facility] SCT-[id number] Medication Reconciliation CPT-3075F Most recent systolic blood pressure 130-139 mm Hg CPT-3078F Most recent diastoli c blood pressure <80 mm Hg Pain [facility]-Pain Management [facility] 43331 T1 CMP SCT-[id number] Medication Reconciliation CPT-3075F Most recent systolic blood pressure 130-139 mm Hg CPT-3078F Most recent diastoli c blood pressure <80 mm Hg [facility] [address] [facility] [address] [facility] CPT-3075F Most recent systolic blood pressure 130-139 mm Hg CPT-3079F Most recent diastoli c blood pressure 80-89 mm Hg [facility] 6399 T1 CBC with diff [facility]-[id number] Medication Reconciliation [facility] 53833 T1 CMP [facility] 496 T1 HGBA1c [facility] 71704 T1 Lipid Panel [facility] 27273 T1 TSH reflex to free T4 201 11/20/26 [facility] 5363 T1 Prostate Screening Vital Signs Date Name Value Unit Description BMI (Body Mass Index) 24.45 kg/m2 Bod y Mass Index (Ratio) Body Temperature 98.6 [degF] temperat ure E&M Body Temperature 37 Jennifer temperat ure in centigrade E&M BP Diastolic 81 mm[Hg] blood pressu re, diastolic BP Diastolic 80 mm[Hg] blood pressu re, diastolic, second observation BP Systolic 160 mm[Hg] blood pressur e, systolic, second observation BP Systolic 146 mm[Hg] blood pressur e, systolic BSA (Body Surface Area) 1.91 b quentin surface area Heart Rate 81 /min pulse rate Height 69 [in_us] height E&M Height 175.26 cm height in cent imeters E&M Weight Measured 75 kg weight in kilograms E&M Weight Measured 165 [lb_av] weight E& M Weight Measured 165 [lb_av] weight E& M Respiratory Rate 16 /min respirat ory rate E&M Heart Rate 93 /min pulse rate #2 Immunizations Vaccine Administration Date Standard Description CVX Co de Dose Td, UF Td, UF 139 Unknown Vaqta Intramuscular Suspension 50 UNIT/ML Vaqta Intramuscular Suspension 50 UNIT/ML 52 1.0 mL Engerix-B Injection Suspension 20 MCG/ML (20 yrs +) Engerix-B Injection Suspension 20 MCG/ML (20 yrs +) 43 0.5 mL Engerix-B Injection Suspension 20 MCG/ML (20 yrs +) Engerix-B Injection Suspension 20 MCG/ML (20 yrs +) 43 0.5 mL COVID-19 mRNA (MOD) COVID-19 mRNA (MOD) 207 Unknown Flu MDCK Quad P-Free Inj Flu MDCK Quad P-Free I nj 171 Unknown Flu MDCK Quad P-Free Inj Flu MDCK Quad P-Free I nj 171 Unknown COVID-19 mRNA (MOD) COVID-19 mRNA (MOD) 207 Unknown PRIVATE Fluzone Quadrivalent Intramuscular Suspension Prefilled Syringe 0.5 ML 6mos-64yrs PRIVATE Fluzone Quadrivalent Intramuscular Suspension Prefilled Syringe 0.5 ML 6mos-64yrs 150 0.5 mL Moderna COVID-19 Vaccine Booster 0.25 mL Moderna COVID-19 Vaccine Booster 0.25 mL 207 Unknown Advance Directives No information available.
--- NOTE | 2025-04-04 10:59 | CT_ITS ---
PROCEDURE INFORMATION: Exam: CTA Chest With Contrast Exam date and time: 04/04/2025 11:46 AM Age: 54 years old Clinical indication: Other: SOB, hypoxic, hemoptysis TECHNIQUE: Imaging protocol: Computed tomographic angiography of the chest with contrast. Exam focused on the arteries. 3D rendering (Not supervised by radiologist): MIP and/or 3D reconstructed images were created by the technologist. Radiation optimization: All CT scans at this facility use at least one of these dose optimization techniques: automated exposure control; mA and/or kV adjustment per patient size (includes targeted exams where dose is matched to clinical indication); or iterative reconstruction. Contrast material: ISO 370; Contrast volume: 70 ml; Contrast route: INTRAVENOUS (IV); COMPARISON: No relevant prior studies available. FINDINGS: Limitations: Motion artifact does moderately limit the sensitivity of this examination. Pulmonary arteries: No evidence of proximal pulmonary emboli. Aorta: Unremarkable. No aortic aneurysm. No aortic dissection. Other arteries: There is an azygos lobule in the right upper lobe. Trachea: Main airways are patent. Lungs: Upper lobe predominant centrilobular emphysema noted. Bibasilar subsegmental atelectasis noted. Coalescent ground-glass opacities in right middle and lower lobe favored to represent developing pneumonia/COPD exacerbation. Pleural spaces: Unremarkable. No pneumothorax. No pleural effusion. Heart: The left atrial appendage is normal. Heart RV/LV ratio: The RV/LV ratio is less than 1. Coronary arteries: There is mild atherosclerotic calcification of the coronary arteries. Esophagus: Circumferential thickening and distension of the mid and distal esophagus can be seen in the context of esophageal dysmotility. Lymph nodes: Borderline prominent, multi station lymph nodes likely reactive. Bones/joints: Unremarkable. No acute fracture. Soft tissues: Unremarkable. IMPRESSION: 1. Coalescent ground-glass opacities in right middle and lower lobe favored to represent developing pneumonia/COPD exacerbation. 2. No evidence of proximal pulmonary emboli. 3. Circumferential thickening and distension of the mid and distal esophagus can be seen in the context of esophageal dysmotility. COMMENTS: The presence of pulmonary emphysema on CT is an independent risk factor for lung cancer. In the absence of a history or active diagnosis of lung cancer, it is recommended that this patient with emphysema be evaluated for enrollment in a low dose CT lung cancer screening program.
--- NOTE | 2025-04-04 11:02 | ECG_ITS ---
APPROVED REPORT Exam: Resting ECG HR:124 bpm ECG Measurements Heart Rate 124 AXES GA 146 P 15 QRSd 102 QRS 157 QT 314 T 31 QTc 387 Conclusion SINUS TACHYCARDIA PATTERN CONSISTENT WITH PULMONARY DISEASE RIGHT VENTRICULAR HYPERTROPHY [SOME/ALL OF: PROMINENT R IN V1, LATE TRANSITION, RAD, KAREEN, SSS] ABNORMAL ECG UNCONFIRMED REPORT Sinus tachycardia. No ST elevation or depression. QTc of 387 Electronically signed by : TYRONE LAI, 04/04/2025 15:33:49
--- NOTE | 2025-04-04 11:03 | PC.NURSE ---
Constance in respiratory notified of a green tube sent to lab for the VBG
--- NOTE | 2025-04-04 11:04 | ED_ITS ---
Discharge Plan Disposition Patient Disposition: Admitted Condition: Fair Clinical Impressions Clinical Impression: Sepsis, Pneumonia, ROGELIO (acute kidney injury) Discharge ED Provider: Deion Isabel HPI General Chief Complaint: Shortness of Breath/Dyspnea Stated Complaint: soa, oxygen 88 and vomiting Time Seen by Provider: 04/04/25 10:53 History of Present Illness HPI narrative: Brendan Schaffer is a 54-year-old male with a past medical history of tobacco use, hypertension, anxiety, fatty liver, who presents to the emergency department for complaints of shortness of breath, cough and fever. Patient is here with his who helps provide details of the history. Patient states that he has been dealing with a viral respiratory illness since the beginning of school, however starting this morning, he had a fever, increased shortness of breath with pink sputum and cough. He is complaining of some right sided chest pain as well that is worsened with deep breathing. He had an episode of vomiting this morning. Patient's oxygen was low to 88% at home and he does not normally wear oxygen. Related Data Home Medications ?Medication ?Instructions ?Recorded ?Confirmed buprenorphine 8 mg-naloxone 2 mg 2 tab sublingual KIMBERLYN Y 01/22/25 04/04/25 sublingual tablet buspirone 10 mg tablet 10 mg PO BIDP PRN Anxiety 04/04/25 clonazepam 0.5 mg tablet 0.5 mg PO BIDP PRN Anxiety 0 01/22/25 04/04/25 desvenlafaxine succinate 50 mg 50 mg PO DAILY 01/22/25 04/04/25 tablet,extended release 24 hr doxepin 100 mg capsule 100 mg PO HS 01/22/25 doxepin 50 mg capsule 50 mg PO HSP PRN Sleep 01/2204/04/25 acetaminophen 500 mg tablet 500 mg PO Q6HP PRN Mild Pa in 04/04/25 04/04/25 (Scale Score 1-4) albuterol sulfate 90 mcg/actuation 1 inh inhalation QI DP PRN 04/04/25 04/04/25 aerosol inhaler (Ventolin HFA) shortness of breath or wheezing famotidine 20 mg tablet 20 mg PO BIDP PRN acid reflu x 04/04/25 04/04/25 methocarbamol 500 mg tablet 500 mg PO HSP PRN Muscle S pasm 04/04/25 04/04/25 propranolol 10 mg tablet 10 mg PO TIDP PRN Anxiety 04/04/25 tamsulosin 0.4 mg capsule 0.4 mg PO HS 04/04/25 Previous Rx's ?Medication ?Instructions ?Recorded aspirin 81 mg tablet 81 mg PO DAILY #90 tabs 01/12 06/07 atorvastatin 20 mg tablet 20 mg PO HS #90 tabs 5 cholecalciferol (vitamin D3) 125 5,000 unit PO DAILY # 90 caps 01/22/25 mcg (5,000 unit) capsule loratadine 10 mg tablet 10 mg PO DAILY #90 tabs 01/12 06/07 losartan 50 mg tablet 50 mg PO DAILY #90 tabs 01/12 06/07 Allergies Allergy/AdvReac Type Severity Reaction Status Date / Time amitriptyline Allergy Mild hyperactivi Verified 01/22/25 13:34 ty tramadol AdvReac Mild trouble Verified 01/22/25 13:34 breathing PFSH PFSH Disclaimer: The information contained in this section may have been updated after the patient was seen, as this information can be updated by other users. Medical History (Updated 04/04/25 @ 12:22 by Deion Isabel MD) Depression Anxiety Hypertension History of broken collarbone Surgical History (Updated 01/22/25 @ 13:43 by Shahida Whalen MA) History of shoulder surgery Family History (Updated 01/22/25 @ 13:47 by Shahida Whalen MA) Other Cancer Diabetes Heart attack Hypertension Stroke Social History (Updated 01/22/25 @ 13:56 by Shahida Whalen MA) Smoking Status: Current every day smoker alcohol intake: never substance use type: former substance user current occupational status: disabled Travel in the last 8 weeks?: None household members: spouse Have you lived/traveled outside [place] in past 30 days?: No Contact w/someone who lives/traveled outside US past 30 days?: No Exposure to someone with infectious disease in past 14 days?: No Do you have a fever (greater than 100.4 F or 38 C)?: No Have you tested positive for COVID-19?: No Exposed to someone with COVID-19 in past 14 days?: No Do you have a sore throat?: No Do you have a cough?: No Do you have any weakness?: No Do you have any diarrhea?: No Are you experiencing any unusual bleeding?: No Do you have any muscle aches/pain?: No Do you have any abdominal pain?: No Are you experiencing loss of taste or smell?: No ROS Obtained: Yes Systems reviewed as appropriate & no additional complaints except as documented Physical Exam General General appearance: alert Comment: Ill-appearing, increased work of breathing. Head Head exam: atraumatic Eye Eye exam: Present normal appearance ENT ENT exam: Present normal external ear exam Neck Neck exam: Present full ROM Chest Chest inspection: Present symmetric chest wall rise; Absent tenderness Respiratory Respiratory exam: Present respiratory distress; Absent normal lung sounds bilaterally (Diminished at the right base), wheezes or stridor Cardiovascular Cardiovascular exam: Present normal rhythm and tachycardia Abdominal Exam Abdominal exam: Present soft; Absent distention, tenderness or guarding exam: Present deferred Extremities Exam Extremities exam: Present normal inspection; Absent edema Back Exam Back exam: Present normal inspection Neurological Exam Neurological exam: Present alert and oriented X3 Psychiatric Psychiatric exam: Present normal affect Skin Skin exam: Present warm and dry HEART Score HEART Score HEART Score assessment performed?: Yes History (anamnesis): Slightly suspicious ECG: Normal Age: 45-65 years Risk factors: 1-2 risk factors Troponin: </= normal limit HEART Score: 2 Critical Care Critical Care Time Critical Care Time: Yes Attestation: On 04/04/25, the high probability of a clinically significant, sudden or life threatening deterioration of the following system(s) required my full and direct attention, intervention and personal management. The time I documented below is in addition to time spent performing reported procedures but includes the following listed in this critical care notation. Total Time Total Critical Care Time: 35 Medical Decision Making [place] Inquiry Pt receiving controlled substance: No Vital Signs Vital Signs: 04/04/25 10:45 04/04/25 10:49 04/04/25 11:15 Temperature 101.2 F H Temperature Source Oral Pulse Rate 131 H 121 H Pulse Rate [Right Radial] 128 H Respiratory Rate 18 Blood Pressure 151/78 H Blood Pressure [Right Arm] 151/78 H Blood Pressure Mean [Right Arm] 102 Blood Pressure Source [Right Arm] Automatic Cuff Blood Pressure Position [Right Arm] Sitting 02 Sat by Pulse Oximetry 88 L 93 L 91 L Oxygen Delivery Method Room Air Nasal Cannula Nasal Cannula Oxygen Flow Rate (LPM) 2 2 04/04/25 11:39 04/04/25 12:00 04/04/25 12:14 Temperature Temperature Source Pulse Rate 113 H 100 H Pulse Rate [Right Radial] Respiratory Rate Blood Pressure 113/56 L 119/56 L Blood Pressure [Right Arm] Blood Pressure Mean [Right Arm] Blood Pressure Source [Right Arm] Blood Pressure Position [Right Arm] 02 Sat by Pulse Oximetry 92 L 96 95 Oxygen Delivery Method Nasal Cannula Nasal Cannula Nasal Cannula Oxygen Flow Rate (LPM) 2 2 2 04/04/25 12:14 04/04/25 12:30 04/04/25 13:00 Temperature Temperature Source Pulse Rate 110 H 101 H Pulse Rate [Right Radial] Respiratory Rate Blood Pressure 109/71 L 100/52 L Blood Pressure [Right Arm] Blood Pressure Mean [Right Arm] Blood Pressure Source [Right Arm] Blood Pressure Position [Right Arm] 02 Sat by Pulse Oximetry 94 L 92 L Oxygen Delivery Method Room Air Nasal Cannula Nasal Cannula Oxygen Flow Rate (LPM) 2 2 04/04/25 13:29 04/04/25 13:31 Temperature 98.2 F 98.0 F Temperature Source Oral Pulse Rate 101 H Pulse Rate [Right Radial] 107 H Respiratory Rate 18 19 Blood Pressure 100/52 L Blood Pressure [Right Arm] 121/62 Blood Pressure Mean [Right Arm] 81 Blood Pressure Source [Right Arm] Automatic Cuff Blood Pressure Position [Right Arm] Supine 02 Sat by Pulse Oximetry 94 L Oxygen Delivery Method Nasal Cannula Oxygen Flow Rate (LPM) 2 Lab Data Labs: Lab Results 04/04/25 10:57: WBC 24.6 H*, RBC 4.37 L, Hgb 13.0 L, Hct 37.9 L, MCV 86.7, MCH 29.7, MCHC 34.3, RDW 13.2, Plt Count 307, MPV 10.2, Neut % (Auto) 78.5, Lymph % (Auto) 11.5, [place] % (Auto) 8.7, Eos % (Auto) 0.3, Baso % (Auto) 0.3, Neut # (Auto) 19.3 H, Lymph # (Auto) 2.8, [place] # (Auto) 2.1 H, Eos # (Auto) 0.1, Baso # (Auto) 0.1, Total Counted 100, Neutrophils % (Manual) 76, Lymphocytes % (Manual) 14, Monocytes % (Manual) 10 H, Platelet Estimate Normal, RBC Morphology Normal, PT 11.5, INR 1.04, APTT 29.2, Sodium 133 L, Potassium 3.9, Chloride 101, Carbon Dioxide 23, Anion Gap 12.9, BUN 10, Creatinine 1.40 H, Estimated Creat Clear 67, Estimated GFR 53 L, Est GFR ( Amer) 64, Glucose 111 H, Calcium 9.0, Total Bilirubin 0.6, AST 34, ALT 18, Alkaline Phosphatase 94, C-Reactive Protein 52.9 H, Total Protein 8.2, Albumin 4.6, Globulin 3.6 H, Albumin/Globulin Ratio 1.3, HCV Ab AUGUSTINE w/Rflx PCR Qn Reactive, HIV Ag/Ab Combo Qual Negative 04/04/25 11:10: VBG pH 7.38, VBG pCO2 40.0, VBG pO2 88.5 H, VBG HCO3 23.2, VBG Total CO2 24.5, VBG O2 Saturation 96.8 H, VBG Base Excess -1.9, VBG Lactic Acid 1.4 04/04/25 11:16: Chlamy pneumoniae PCR Not detected, Adenovirus (PCR) Not detected, B. pertussis DNA (PCR) Not detected, Coronavirus OC43 (PCR) Not detected, Coronavirus HKU1 (PCR) Not detected, Coronavirus 229E (PCR) Not detected, SARS-CoV-2 (PCR) Not detected, Coronavirus NL63 (PCR) Not detected, Human Metapneumovir PCR Not detected, Influenza A (H1) PCR Not detected, Influ A (H1N1/09) PCR Not detected, Influenza A (H3) PCR Not detected, Influenza Type A (PCR) Not detected, Influenza Type B (PCR) Not detected, M. pneumoniae (PCR) Not detected, Parainfluenza 1 (PCR) Not detected, Parainfluenza 2 (PCR) Not detected, Parainfluenza 3 (PCR) Not detected, Parainfluenza 4 (PCR) Not detected, RSV (PCR) Not detected, Entero/Rhino (PCR) Not detected 04/04/25 10:57 04/04/25 10:57 Response Orders (Tests/Meds): ED MEDICATIONS Generic Name Dose Route Start Last Admin Trade Name Freq PRN Reason Stop Dose Admin Acetaminophen 650 mg 04/04/25 13:19 04/04/25 18:24 Acetaminophen 325mg Tab PO 05/04/25 13:18 650 mg Q4HP PRN Administration Fever or Mild Pain (1-3) Albuterol/Ipratropium 3 ml 04/04/25 18:00 04/04/25 18:46 Ipratropium/Albuterol 3 Ml Neb IH 05/04/25 17:59 3 ml Q6RT RAFA Administration Aspirin 81 mg 04/05/25 09:00 Aspirin Ec 81mg Tablet PO 05/05/25 08:59 DAILY RAFA Buprenorphine/Naloxone 2 each 04/05/25 09:00 Buprenorphine/Naloxone 8mg/2mg Odt SL 05/05/25 08:59 DAILY [facility] Buspirone HCl 10 mg 04/04/25 17:08 Buspirone Hcl 10 Mg Tablet PO 05/04/25 17:07 BIDP PRN Anxiety Clonazepam 0.5 mg 04/04/25 17:08 Clonazepam 0.5mg Tablet PO 05/04/25 17:07 BIDP PRN Anxiety Doxepin HCl 100 mg 04/04/25 21:00 Doxepin Hcl 25 Mg Capsule PO 05/04/25 20:59 HS [facility] Enoxaparin Sodium 40 mg 04/05/25 09:00 Enoxaparin 40mg/0.4ml Syringe SUBCUT 05/05/25 08:59 DAILY [facility] Non-Formulary Medication 50 mg 04/05/25 09:00 Desvenlafaxine Succinate PO 05/05/25 08:59 DAILY [facility] Ondansetron HCl 4 mg 04/04/25 13:19 Ondansetron 4mg/2ml Vial IV 05/04/25 13:18 Q6HP PRN Nausea Tamsulosin HCl 0.4 mg 04/04/25 21:00 Tamsulosin 0.4mg Capsule PO 05/04/25 20:59 HS [facility] Discontinued Medications Generic Name Dose Route Start Last Admin Trade Name Freq PRN Reason Stop Dose Admin Lactated Ringer's 1,000 mls @ 999 mls/hr 04/04/25 11:02 04/04/25 11:20 Lactated Ringer's 1000 Ml Bag IV 04/04/25 12:02 Not Given .Q1H1M ONE Protocol Ceftriaxone Sodium 2 gm/ 100 mls @ 200 mls/hr 04/04/25 11:02 04/04/25 12:11 Sodium Chloride IV 04/04/25 11:31 Infused ONCE ONE Infusion Azithromycin 500 mg/ Sodium 250 mls @ 250 mls/hr 04/04/25 11:02 04/04/25 13:20 Chloride IV 04/04/25 11:03 Infused ONCE ONE Infusion Lactated Ringer's 2,120 mls @ 1,060 mls/hr 04/04/25 11:18 04/04/25 13:36 Lactated Ringer's 1000 Ml Bag 30 ml/kg infuse over 2 hr (2120 ml) 04/04/25 13:17 Infused IV Infusion .Q2H ONE Iopamidol 70 ml 04/04/25 11:48 04/04/25 11:49 Iopamidol-370 (76%);100ml Bottle IV 04/04/25 11:49 70 ml ONCE ONE Administration Ondansetron HCl 4 mg 04/04/25 12:25 04/04/25 12:26 Ondansetron 4mg/2ml Vial IV 04/04/25 12:26 4 mg ONCE ONE Administration Sodium Chloride 50 ml 04/04/25 11:48 04/04/25 11:49 0.9 % Sodium Chloride 50 Ml Vial IV 04/04/25 11:49 50 ml ONCE ONE Administration Sodium Chloride 10 ml 04/04/25 11:48 04/04/25 11:49 Sodium Chloride 0.9% 10ml Syr (Rad Only) IV 04/04/25 11:49 10 ml ONCE ONE Administration ORDERS Category Date Time Status CT angio chest PE protocol Stat Cat Scan 04/04/25 10:59 Completed Activated Partial Thrombo Time Stat Lab 04/04/25 10:57 Completed C-Reactive Protein Stat Lab 04/04/25 10:57 Completed Complete Blood Count Auto Diff Stat Lab 04/04/25 10:57 Completed Comprehensive Metabolic Panel Stat Lab 04/04/25 10:57 Completed Full Resp Panel w/COVID (H) Routine Lab 04/04/25 11:16 Completed HCV RNA PCR, Quant Routine Lab 04/04/25 10:57 Received HIV Combo Routine Lab 04/04/25 10:57 Completed Hepatitis C Ab Qual. W/ RFX Routine Lab 04/04/25 10:57 Completed Prothrombin Time INR Stat Lab 04/04/25 10:57 Completed Urinalysis and Microscopic Stat Lab 04/04/25 11:02 Ordered Blood Culture Stat Micro 04/04/25 11:18 Received VBG [Venous Blood Gas] Stat RT 04/04/25 11:10 Completed ECG Data Tracing #1: Attestation: I reviewed this ECG and interpreted as documented below: ECG Narrative: Sinus tachycardia. No ST elevation or depression. QTc normal at 387. MDM Narrative Medical Decision Narrative: Brendan Schaffer is a 54-year-old male with a past medical history of tobacco use, hypertension, anxiety, fatty liver, who presents to the emergency department for complaints of shortness of breath, cough and fever. Patient is here with his who helps provide details of the history. Patient states that he has been dealing with a viral respiratory illness since the beginning of school, however starting this morning, he had a fever, increased shortness of breath with pink sputum and cough. He is complaining of some right sided chest pain as well that is worsened with deep breathing. He had an episode of vomiting this morning. Patient's oxygen was low to 88% at home and he does not normally wear oxygen. On arrival, patient's pressure was 119/56, tachycardic with heart rate of 120- 130 bpm, febrile with temperature of 101.2 ?F, oxygen saturation initially 88% on room air but improved to 93% on nasal cannula. Physical exam, stated above, revealed an ill appearing male who is alert and answering questions appropriately. He is speaking in full sentences. Cardiopulmonary exam reveals tachycardia but no murmurs or rubs. He has diminished breath sounds in the right base. No wheezing or rhonchi. Abdomen is soft, nontender nondistended. He has no significant peripheral edema. He is on 2 L nasal cannula at this point. Mucous membranes appear dry. Differential diagnosis includes, but is not limited to: Sepsis, pneumonia, pulmonary embolism, viral respiratory illness, ACS, pericarditis, myocarditis, among others. The most morbid conditions were considered and workup was based on these. EKG showed sinus tachycardia without evidence of ischemia. See interpretation above. Hematologic labs as well as CT imaging of the chest were obtained. Patient was initially started on sepsis bolus fluids as well as IV ceftriaxone 2 g and 500 mg IV azithromycin. Patient's white blood cell count significantly elevated 24.6, hemoglobin mildly low at 13, hematocrit 37.9. Coagulation studies within normal limits. Lactate normal at 1.4, no acidosis or alkalosis on VBG. Mild hyponatremia 133. Normal anion gap of 12.9. Creatinine elevated at 1.4, unknown what his baseline is. BUN normal at 10. CRP significantly elevated 52.9. Liver enzymes within normal limits. CT imaging was interpreted by me personally prior to official radiology read. Patient does have ground glass opacities in the right lower lobe consistent with pneumonia. No evidence of pulmonary was upon my exam. Radiology report pending. Due to patient's sepsis in the setting of pneumonia, I do feel patient requires admission for continued IV antibiotics and monitoring. I discussed this with patient and his and they are in agreement with this plan. I did discuss patient's case with Dr. Hartley with the hospital medicine service and he is in agreement to admit the patient for further care. Admitting diagnosis is sepsis, pneumonia, ROGELIO.
[2025-04-04 11:10] LABS: Lactate Venous 1.4 mmol/L (0.4-2.0); VBG HCO3 23.2 mmol/L (23-30); VBG PCO2 40.0 mmol/L (35-51); VBG PH 7.38 mmol/L (7.31-7.41); VBG PO2 88.5 mmol/L (28-40)
[2025-04-04 11:21] LABS: Adenovirus,PCR Not Detected (NotDetected); Chlamydophila Pneumoniae, PCR Not Detected (NotDetected); Coronavirus 19, PCR Not Detected (NotDetected); Coronovirus HKU1,PCR Not Detected (NotDetected); Influenza A, PCR Not Detected (NotDetected); Influenza AH1, 2009 Not Detected (NotDetected); Influenza AH1, PCR Not Detected (NotDetected); Influenza AH3,PCR Not Detected (NotDetected); Influenza B, PCR Not Detected (NotDetected); Mycoplasma Pneumoniae, PCR Not Detected (NotDetected); Parainfluenza 1, PCR Not Detected (NotDetected); Parainfluenza 2, PCR Not Detected (NotDetected); Parainfluenza 3, PCR Not Detected (NotDetected); Parainfluenza 4, PCR Not Detected (NotDetected)
[2025-04-04 11:21] LABS: Hematocrit 37.9 % (42.0-52.0); Hemoglobin 13.0 g/dL (14.1-18.0); Immature Granulocytes % 0.7 %; Mean Corpuscular HGB Conc 34.3 g/dL (31.8-35.4); Mean Corpuscular Hemoglobin 29.7 pg (27.0-31.2); Mean Corpuscular Volume 86.7 fl (80-94); Nucleated Red Blood Cells % 0 %; Platelet Count 307 K/mm3 (142-424); Red Blood Count 4.37 M/mm3 (4.60-6.20); Red Cell Distribution Width-SD 41.5 fL; White Blood Count 24.6 K/mm3 (4.8-10.8)
[2025-04-04 11:26] LABS: Alanine Aminotransferase 18 U/L (12-78); Albumin Level 4.6 g/dl (3.5-5.0); Albumin/Globulin Ratio 1.3 (1.1-1.8); Alkaline Phosphatase 94 U/L (38-126); Anion Gap 12.9 mEq/L (5-15); Aspartate Amino Transferase 34 U/L (17-59); Bilirubin,Total 0.6 mg/dl (0.2-1.3); Blood Urea Nitrogen 10 mg/dl (9-20); Calcium 9.0 mg/dl (8.4-10.2); Carbon Dioxide 23 mmol/L (22.0-30.0); Chloride 101 mmol/L (98-107); Creatinine Clearance Estimated 67 mL/min (50-200); Creatinine,Serum 1.40 mg/dl (0.66-1.25); Estimated Glomerular Filt Rate 53 ml/min (>60); GFR (African American) 64 ML/MIN (>60); Globulin 3.6 g/dL (1.3-3.2); Glucose 111 mg/dl (74-100); Potassium 3.9 mmoL/L (3.5-5.1); Sodium 133 mmol/L (136-145); Total Protein,Serum 8.2 g/dl (6.3-8.2)
[2025-04-04 11:29] LABS: Activated Partial Thrombo Time 29.2 seconds (22.8-30.6); INR 1.04 (0.9-1.1); Prothrombin Time 11.5 seconds (10.1-12.5)
[2025-04-04 11:31] LABS: C-Reactive Protein 52.9 mg/L (0-4)
[2025-04-04] MEDS: LACTATED RINGERS 1000ML 2,120 ML 1060 ML IV (11:36)
--- NOTE | 2025-04-04 11:43 | PC.NURSE ---
Pt taken to CT scan
[2025-04-04] MEDS: IOPAMIDOL-370 (76%);100ML BOTTLE 70 ML IV (11:49)
[2025-04-04] MEDS: SODIUM CHLORIDE 0.9% 10ML SYR (RAD ONLY) 10 ML IV (11:49)
[2025-04-04] MEDS: 0.9 % SODIUM CHLORIDE 50 ML VIAL IV (11:49)
--- NOTE | 2025-04-04 11:54 | PC.NURSE ---
Pt back from CT scan
[2025-04-04 12:02] LABS: RBC Morphology Normal; Total Cells Counted 100
--- NOTE | 2025-04-04 12:09 | PC.NURSE ---
HS notified of the need for a bed to admit the pt to the hospitalist.
[2025-04-04] MEDS: AZITHROMYCIN 500 MG in 0.9 % SODIUM CHLORIDE 250 ML 250 MG IV (12:20)
[2025-04-04] MEDS: ONDANSETRON 4MG/2ML VIAL 4 MG IV (12:26)
--- NOTE | 2025-04-04 12:31 | PC.NURSE ---
Report given to CHRISTIANA Resendiz @12:30
--- NOTE | 2025-04-04 13:16 | EXP.HP ---
History of Present Illness *Admission Date: 04/04/25 *Reason for visit:: Shortness of breath, fevers *History of present illness: Brendan Schaffer is a 54-year-old male with a medical history significant for COPD on room air, current tobacco smoker, anxiety/depression, hypertension, BPH presents with 3 weeks of shortness of breath, intermittent fevers. He states he has been having the symptoms ever since school started for kids. Denies chest pain, but does endorse shortness of breath. Intermittent fevers. Workup in the ED significant for WBC 24.6 with tachycardia, creatinine 1.4, CTA chest revealing right middle and lower lobe opacification and esophageal dysmotility. Also requiring 2 L nasal cannula. Given these findings, ED provider discussed case with me and I decided to admit patient for acute hypoxic respiratory failure secondary to sepsis from community-acquired pneumonia. [facility] Disclaimer: The information contained in this section may have been updated after the patient was seen, as this information can be updated by other users. Medical History (Updated 04/04/25 @ 12:22 by Deion Isabel MD) Depression Anxiety Hypertension History of broken collarbone Surgical History (Updated 01/22/25 @ 13:43 by Shahida Whalen MA) History of shoulder surgery Family History (Updated 01/22/25 @ 13:47 by Shahida Whalen MA) Other Cancer Diabetes Heart attack Hypertension Stroke Social History (Updated 01/22/25 @ 13:56 by Shahida Whalen MA) Smoking Status: Current every day smoker alcohol intake: never substance use type: former substance user current occupational status: disabled Travel in the last 8 weeks?: None household members: spouse Have you lived/traveled outside [place] in past 30 days?: No Contact w/someone who lives/traveled outside [place] past 30 days?: No Exposure to someone with infectious disease in past 14 days?: No Do you have a fever (greater than 100.4 F or 38 C)?: No Have you tested positive for COVID-19?: No Exposed to someone with COVID-19 in past 14 days?: No Do you have a sore throat?: No Do you have a cough?: No Do you have any weakness?: No Do you have any diarrhea?: No Are you experiencing any unusual bleeding?: No Do you have any muscle aches/pain?: No Do you have any abdominal pain?: No Are you experiencing loss of taste or smell?: No Meds Home Medications and Allergies Home Medications ?Medication ?Instructions ?Recorded ?Confirmed ?Type aspirin 81 mg tablet 81 mg PO DAILY #90 tabs 01/22/25 04/04/25 Rx atorvastatin 20 mg tablet 20 mg PO HS #90 tabs 01/22/25 04/04/25 Rx buprenorphine 8 mg-naloxone 2 mg 2 tab sublingual DAILY 01/22/25 04/04/25 History sublingual tablet buspirone 10 mg tablet 10 mg PO BIDP PRN Anxiety 01/22/25 04/04/25 History cholecalciferol (vitamin D3) 125 5,000 unit PO DAILY #90 caps 01/22/25 04/04/25 Rx mcg (5,000 unit) capsule clonazepam 0.5 mg tablet 0.5 mg PO BIDP PRN Anxiety 01/22/25 04/04/25 History desvenlafaxine succinate 50 mg 50 mg PO DAILY 01/22/25 04/04/25 History tablet,extended release 24 hr doxepin 100 mg capsule 100 mg PO HS 01/22/25 04/04/25 History doxepin 50 mg capsule 50 mg PO HSP PRN Sleep 01/22/25 04/04/25 History loratadine 10 mg tablet 10 mg PO DAILY #90 tabs 01/22/25 04/04/25 Rx losartan 50 mg tablet 50 mg PO DAILY #90 tabs 01/22/25 04/04/25 Rx acetaminophen 500 mg tablet 500 mg PO Q6HP PRN Mild Pain 04/04/25 04/04/25 History (Scale Score 1-4) albuterol sulfate 90 mcg/actuation 1 inh inhalation QIDP PRN 04/04/25 04/04/25 History aerosol inhaler (Ventolin HFA) shortness of breath or wheezing famotidine 20 mg tablet 20 mg PO BIDP PRN acid reflux 04/04/25 04/04/25 History methocarbamol 500 mg tablet 500 mg PO HSP PRN Muscle Spasm 04/04/25 04/04/25 History propranolol 10 mg tablet 10 mg PO TIDP PRN Anxiety 04/04/25 04/04/25 History tamsulosin 0.4 mg capsule 0.4 mg PO HS 04/04/25 04/04/25 History New Prescriptions to Start Prescriptions: Allergies Allergy/AdvReac Type Severity Reaction Status Date / Time amitriptyline Allergy Mild hyperactivi Verified 01/22/25 13:34 ty tramadol AdvReac Mild trouble Verified 01/22/25 13:34 breathing Exam Data for Last 24 hours Vital signs and Labs for Last 24 Hours: Temp Pulse Resp BP Pulse Ox O2 Del Method O2 Flow Rate 101.2 F H 101 H 18 100/52 L 92 L Nasal Cannula 2 04/04/25 10:45 04/04/25 13:00 04/04/25 10:45 04/04/25 13:00 04/04/25 13:00 04/04/25 13:00 04/04/25 13:00 Laboratory Results - last 24 hr 04/04/25 10:57: WBC 24.6 H*, RBC 4.37 L, Hgb 13.0 L, Hct 37.9 L, MCV 86.7, MCH 29.7, MCHC 34.3, RDW 13.2, Plt Count 307, MPV 10.2, Neut % (Auto) 78.5, Lymph % (Auto) 11.5, [place] % (Auto) 8.7, Eos % (Auto) 0.3, Baso % (Auto) 0.3, Neut # (Auto) 19.3 H, Lymph # (Auto) 2.8, [place] # (Auto) 2.1 H, Eos # (Auto) 0.1, Baso # (Auto) 0.1, Total Counted 100, Neutrophils % (Manual) 76, Lymphocytes % (Manual) 14, Monocytes % (Manual) 10 H, Platelet Estimate Normal, RBC Morphology Normal, PT 11.5, INR 1.04, APTT 29.2, Sodium 133 L, Potassium 3.9, Chloride 101, Carbon Dioxide 23, Anion Gap 12.9, BUN 10, Creatinine 1.40 H, Estimated Creat Clear 67, Estimated GFR 53 L, Est GFR ( Amer) 64, Glucose 111 H, Calcium 9.0, Total Bilirubin 0.6, AST 34, ALT 18, Alkaline Phosphatase 94, C-Reactive Protein 52.9 H, Total Protein 8.2, Albumin 4.6, Globulin 3.6 H, Albumin/Globulin Ratio 1.3 04/04/25 11:10: VBG pH 7.38, VBG pCO2 40.0, VBG pO2 88.5 H, VBG HCO3 23.2, VBG Total CO2 24.5, VBG O2 Saturation 96.8 H, VBG Base Excess -1.9, VBG Lactic Acid 1.4 04/04/25 11:16: Chlamy pneumoniae PCR Not detected, Adenovirus (PCR) Not detected, B. pertussis DNA (PCR) Not detected, Coronavirus OC43 (PCR) Not detected, Coronavirus HKU1 (PCR) Not detected, Coronavirus 229E (PCR) Not detected, SARS-CoV-2 (PCR) Not detected, Coronavirus NL63 (PCR) Not detected, Human Metapneumovir PCR Not detected, Influenza A (H1) PCR Not detected, Influ A (H1N1/09) PCR Not detected, Influenza A (H3) PCR Not detected, Influenza Type A (PCR) Not detected, Influenza Type B (PCR) Not detected, M. pneumoniae (PCR) Not detected, Parainfluenza 1 (PCR) Not detected, Parainfluenza 2 (PCR) Not detected, Parainfluenza 3 (PCR) Not detected, Parainfluenza 4 (PCR) Not detected, RSV (PCR) Not detected, Entero/Rhino (PCR) Not detected I & O for Last 24 hours: Intake & Output 04/01/25 04/02/25 04/03/25 04/04/25 23:59 23:59 23:59 23:59 Intake Total 100 / 100 Balance 100 / 100 Weight 77.564 kg Constitutional Constitutional: no acute distress and chronically ill appearing *Routine HEENT Exam Head: Present normocephalic Eye: Present EOMI and PERRL ENT: Present mucous membranes moist *Routine Neck Exam Neck: Present supple; Absent lymphadenopathy *Routine Respiratory Exam Respiratory: Present CTA bilaterally *Routine Cardiovascular Exam Cardiovascular: Present RRR *Routine Abdominal Exam Abdominal: Present soft and normoactive bowel sounds; Absent tenderness *Routine Rectal Exam Rectal:: deferred *Routine Genitalia Exam Genitalia:: deferred *Routine Extremities Exam Extremities: Absent cyanosis, clubbing or edema *Routine Skin Exam Skin: Present warm; Absent rash *Routine Neurological Exam Neurological: Present alert and oriented X3 Assessment and Plan *Assessment and plan (1) Pneumonia: Status: Acute Category: Medical Code(s): J18.9 - Pneumonia, unspecified organism (2) Sepsis: Status: Acute Category: Medical Code(s): A41.9 - Sepsis, unspecified organism Plan Brendan Schaffer is a 54-year-old male with a medical history significant for COPD on room air, current tobacco smoker, anxiety/depression, hypertension, BPH presents with 3 weeks of shortness of breath, intermittent fevers. He states he has been having the symptoms ever since school started for kids. Denies chest pain, but does endorse shortness of breath. Intermittent fevers. Workup in the ED significant for WBC 24.6 with tachycardia, creatinine 1.4, CTA chest revealing right middle and lower lobe opacification and esophageal dysmotility. Also requiring 2 L nasal cannula. Given these findings, ED provider discussed case with me and I decided to admit patient for acute hypoxic respiratory failure secondary to sepsis from community-acquired pneumonia. #Acute hypoxic respiratory failure #Sepsis #Community-acquired pneumonia ? Presents with shortness of breath, intermittent fevers. CTA chest revealed right middle and lower lobe pneumonia. ? Initial WBC 24.6 with tachycardia. CRP 52.9. ? Continue IV ceftriaxone 1 g daily, azithromycin. ? Follow-up blood, sputum cultures. ? Currently requiring 2 L, wean as tolerated. #COPD #Current tobacco smoker ? Currently stable. DuoNebs every 6 hours. #Anxiety/depression ? Continue home doxepin 100 mg nightly, desvenlafaxine 50 mg, clonazepam as needed, buspirone. #Opioid use disorder in remission ? Continue home Suboxone. #Hypertension ? Hold home losartan, propranolol in the setting of sepsis. Full code DVT prophylaxis: Lovenox 40 mg Home medications: Restarted, held a few as above.
--- NOTE | 2025-04-04 13:16 | PC.NURSE ---
I called med/surg to check on transport for the pt to the floor. Danelle is going to let the techs know.
--- OUTSIDE RECORDS SUMMARY | 2025-04-04 14:13 | XMS_ITS | Clinical Summary ---
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 Name Role Phone Radha Cruz APRN Primary Care Physician [phone] Conditions or Problems Problem Name Problem Code [...] mass index [BMI] 24.0-24.9, adult Hypertrigly ceridemia 309141479 (SNOMED CT) 07/14 Active 07/14 Radha Cruz APRN Hypertriglycer idemia Body mass index (BMI) 24.0-24.9; adult Z68.24 (ICD-10-CM ) 01/14 Removed 01/14 Radha Curtsinger [employer] Body mass index [BMI] 24.0-24.9, adult Body mass index (BMI) 23.0-23.9; adult Z68.23 (ICD-10-CM ) 07/02 Correction 07/02 Radha Curtsinger [employer] Body mass index [BMI] 23.0-23.9, adult Tobacco User [id number] (SNOMED CT) 01/14 Active 01/14 Radha Curtsinger [employer] Tobacco user Body mass index (BMI) 23.0-23.9; adult Z68.23 (ICD-10-CM ) 07/02 Removed 07/02 Radha Curtsinger [employer] Body mass index [BMI] 23.0-23.9, adult Body mass index (BMI) 23.0-23.9; adult Z68.23 (ICD-10-CM ) 06/18 Correction 06/21 Radha Curtsinger [employer] Body mass index [BMI] 23.0-23.9, adult Weight gain 303591235 (SNOMED CT) 08/10 Resolved 08/10 Radha Curtsinger [employer] Abnormal weight gain Body mass index (BMI) 23.0-23.9; adult Z68.23 (ICD-10-CM ) 06/18 Removed 06/21 Radha Curtsinger [employer] Body mass index [BMI] 23.0-23.9, adult Body mass index (BMI) 22.0-22.9; adult Z68.22 (ICD-10-CM ) 02/04 Correction 02/08 Radha Curtsinger [employer] Body mass index [BMI] 22.0-22.9, adult Body mass index (BMI) 22.0-22.9; adult Z68.22 (ICD-10-CM ) 02/04 Removed 02/08 Radha Curtsinger [employer] Body mass index [BMI] 22.0-22.9, adult Body mass index (BMI) 22.0-22.9; adult Z68.22 (ICD-10-CM ) 02/04 Correction 02/04 Radha Anthony TURNERN Body mass index [BMI] 22.0-22.9, adult Flu vaccine [id number] (SNOMED CT) 02/04 Inactive 02/08 Radha Cruz APRN Administration of influenza vaccine Body mass index (BMI) 22.0-22.9; adult Z68.22 (ICD-10-CM ) 02/04 Removed 02/04 Radha Anthony [employer] Body mass index [BMI] 22.0-22.9, adult Body [...] mass index [BMI] 23.0-23.9, adult Allergic rhinitis [id number] (SNOMED CT) 08/10 Active 08/10 Radha Anthony TURNERN Allergic rhinitis Body mass index (BMI) 23.0-23.9; adult Z68.23 (ICD-10-CM ) 08/10 Removed 08/10 Radha Anthony TURNERN Body mass index [BMI] 23.0-23.9, adult Body mass index (BMI) 22.0-22.9; adult Z68.22 (ICD-10-CM ) 12/28 Correction 12/28 Radha Curshabana TURNERN Body mass index [BMI] 22.0-22.9, adult Weight gain 140529870 (SNOMED CT) 08/10 Removed 08/10 Radha Cruz APRN Abnormal weight gain Immunizatio n due [id number] (SNOMED CT) 12/21 Resolved 12/21 Mary Anne Sinan [employer] Immunization due [facility] medication use NEC [id number] (SNOMED CT) 12/28 Active 12/28 Jamia Cuevayadi LONG Long-term drug therapy Body mass index (BMI) 22.0-22.9; adult Z68.22 (ICD-10-CM ) 12/28 Removed 12/28 Jamia Cuevayadi LONG Body mass index [BMI] 22.0-22.9, adult Body mass index (BMI) 21.0-21.9; adult Z68.21 (ICD-10-CM ) 12/21 Correction 12/21 Jamia Cuevayadi LONG Body mass index [BMI] 21.0-21.9, adult Medication refill [id number] (SNOMED CT) 12/28 Inactive 12/28 Jamia Cuevayadi LONG Repeated prescription Body mass index (BMI) 21.0-21.9; adult Z68.21 (ICD-10-CM ) 12/21 Removed 12/21 Nancy Bui MD Body mass index [BMI] 21.0-21.9, adult Body mass index (BMI) 20.0-20.9; adult Z68.20 (ICD-10-CM ) 10/08 Correction 10/08 Nancy Bui MD Body mass index [BMI] 20.0-20.9, adult Immunizatio n due [id number] (SNOMED CT) 12/21 Removed 12/21 Nancy Bui MD Immunization due Hepatitis C [id number] (SNOMED CT) 10/16 Active 10/16 Radha Cruz APRN Viral hepatitis C Elevated liver enzymes 511390586 (SNOMED CT) 10/09 Active 10/09 Radha Cruz APRN Liver enzymes outside reference range Body mass index (BMI) 20.0-20.9; adult Z68.20 (ICD-10-CM ) 10/08 Removed 10/08 Radha Anthony [employer] Body mass index [BMI] 20.0-20.9, adult Nausea, chronic NERVOUS STOMACH R11.0 (ICD-10-CM ) Active Radha Anthony [employer] Nausea Body mass index (BMI) 20.0-20.9; adult Z68.20 (ICD-10-CM ) 07/11 Correction 07/11 Radha Curjayneinger [employer] Body mass index [BMI] 20.0-20.9, adult Body mass index (BMI) 20.0-20.9; adult Z68.20 (ICD-10-CM ) 07/11 Removed 07/11 Radha Curshabana [employer] Body mass index [BMI] 20.0-20.9, adult Body mass index (BMI) 20.0-20.9; adult Z68.20 (ICD-10-CM ) Correction Radha Curshabana [employer] Body mass index [BMI] 20.0-20.9, adult Body mass index (BMI) 20.0-20.9; adult Z68.20 (ICD-10-CM ) Removed Radha Curshabana [employer] Body mass index [BMI] 20.0-20.9, adult Body mass index (BMI) 21.0-21.9; adult Z68.21 (ICD-10-CM ) 11/19 Correction 11/19 Radha Curshabana [employer] Body mass index [BMI] 21.0-21.9, adult Vitamin D deficiency [id number] (SNOMED CT) 11/21 Active 11/21 Radha Curshabana [employer] Vitamin D deficiency Body mass index (BMI) 21.0-21.9; adult Z68.21 (ICD-10-CM ) 11/19 Removed 11/19 Radha Curshabana [employer] Body mass index [BMI] 21.0-21.9, adult Body mass index (BMI) 20.0-20.9; adult Z68.20 (ICD-10-CM ) 08/06 Correction 08/07 Radha Curjayneinger [employer] Body mass index [BMI] 20.0-20.9, adult SCREENING FOR THYROID DISORDER [id number] (SNOMED CT) Resolved Radha Curtsinger [employer] Thyroid disorder screening Influenza 2251551 (SNOMED CT) 06/08 Resolved 06/08 Radha Curtsinger [employer] Influenza Hyponatremi a [id number] (SNOMED CT) Resolved Radha Curtsinger [employer] Hyponatremia Body mass index (BMI) 20.0-20.9; adult Z68.20 (ICD-10-CM ) 08/06 Removed 08/07 Radha Curtsinger [employer] Body mass index [BMI] 20.0-20.9, adult Body mass index (BMI) 20.0-20.9; adult Z68.20 (ICD-10-CM ) 08/06 Correction 08/06 Radha Curtsinger [employer] Body mass index [BMI] 20.0-20.9, adult Syncope 488011538 (SNOMED CT) 08/06 Active 08/06 Radha Curtsinger [employer] Syncope Body mass index (BMI) 20.0-20.9; adult Z68.20 (ICD-10-CM ) 08/06 Removed 08/06 Radha Curtsinger [employer] Body mass index [BMI] 20.0-20.9, adult Body mass index (BMI) 20.0-20.9; adult Z68.20 (ICD-10-CM ) 06/08 Correction 06/08 Radha Curtsinger [employer] Body mass index [BMI] 20.0-20.9, adult Depression, major, recurrent [id number] (SNOMED CT) 08/06 Active 08/06 Radha Curtsinger [employer] Recurrent major depression Body mass index (BMI) 20.0-20.9; adult Z68.20 (ICD-10-CM ) 06/08 Removed 06/08 Radha Curtsinger [employer] Body mass index [BMI] 20.0-20.9, adult Influenza [id number] (SNOMED CT) 06/08 Removed 06/08 Radha Curjayneinger [employer] Influenza Body mass index (BMI) 20.0-20.9; adult Z68.20 (ICD-10-CM ) Correction 05/14 Radha Curjayneinger [employer] Body mass index [BMI] 20.0-20.9, adult Body mass index (BMI) 20.0-20.9; adult Z68.20 (ICD-10-CM ) Removed 05/14 Radha Curjayneinger [employer] Body mass index [BMI] 20.0-20.9, adult Body mass index (BMI) 20.0-20.9; adult Z68.20 (ICD-10-CM ) Correction Radha Curjayneinger [employer] Body mass index [BMI] 20.0-20.9, adult Hyponatremi a [id number] (SNOMED CT) Removed Radha Larisainger [employer] Hyponatremia Body mass index (BMI) 20.0-20.9; adult Z68.20 (ICD-10-CM ) Removed Radha Curjayneinger [employer] Body mass index [BMI] 20.0-20.9, adult Screening for diabetes mellitus Z13.1 (ICD-10-CM ) Inactive Radha Curjayneinger [employer] Encounter for screening for diabetes mellitus SCREENING FOR THYROID DISORDER 637357329 (SNOMED CT) Removed Radha Curtsinger [employer] Thyroid disorder screening GERD 135754287 (SNOMED CT) Active Radha Curtsinger [employer] Gastroesophage al reflux disease Nausea, chronic 102608339 (SNOMED CT) Inactive Radha Curtsinger [employer] Nausea Dissociativ e disorder, MILD 13731565 (SNOMED CT) Active Radha Curtsinger [employer] Dissociative disorder Social phobia, generalized 64751511 (SNOMED CT) Active Radha Curtsinger [employer] Generalized social phobia Agoraphobia with panic 14793454 (SNOMED CT) Active Radha Curtsinger [employer] Panic disorder with agoraphobia Insomnia 619364108 (SNOMED CT) Active Radha Curtsinger [employer] Insomnia Chronic prostatitis 89010896 (SNOMED CT) Active Radha Curtsinger [employer] Chronic prostatitis Lumbar disc disorder 850346511 (SNOMED CT) Active Radha Curtsinger [employer] Disorder of lumbar disc Chronic back pain 996688920 (SNOMED CT) Active Radha Curtsinger [employer] Chronic back pain Hyperlipide zay 31344110 (SNOMED CT) Active Radha Curtsinger [employer] Hyperlipidemia Hypertensio n 45390976 (SNOMED CT) Active Radha Curtsinger [employer] Hypertensive disorder Depression 99497898 (SNOMED CT) Active Radha Curtsinger [employer] Depressive disorder Anxiety Disorder 823347543 (SNOMED CT) Active Radha Curtsinger [employer] Anxiety disorder Medications Medication Instructions Start Date Stop Date Generic Name NDC Provider ONDANSETRON HCL 4 MG TABS TAKE 1 TABLET BY MOUTH EVERY 6 TO 8 HOURS NEEDED ondansetron hcl [id number] Radha Curtsinger [employer] IBUPROFEN 800 MG TABS Take 1 tablet by mouth every eight hours as needed for pain. Take with food. 07/14 ibuprofen 19274660122 Radha Curtsinger [employer] EQ ACETAMINOPHEN 500 MG TABS 1-2 tablet by mouth every six hours as needed for pain for Arthritis pain. acetaminophen 06109186370 Radha Curtsinger [employer] ONDANSETRON HCL 4 MG TABS TAKE 1 TABLET BY MOUTH EVERY 6 TO 8 HOURS NEEDED 06/22 ondansetron hcl 04393271464 Radha Cruz APRN ONDANSETRON HCL 4 MG TABS TAKE 1 TABLET BY MOUTH EVERY 6 TO 8 HOURS NEEDED ondansetron hcl 92590520897 Radha Cruz APRN ProAir HFA 90 mcg/actuation HFA aerosol inhaler INHALE 2 PUFFS BY MOUTH FOUR TIMES DAILY NEEDED albuterol sulfate 09107231777 Radha Cruz APRN OMEPRAZOLE 20 MG CPDR TAKE ONE CAPSULE BY MOUTH EVERY DAY NEEDED FOR HEARTBURN OR REFLUX NOT IMPROVED BY FAMOTIDINE omeprazole 63096425584 Nicole Matamoros APRN OMEPRAZOLE 20 MG CPDR TAKE 1 CAPSULE BY MOUTH EVERY DAY NEEDED FOR HEARTBURN OR REFLUX NOT IMPROVED BY FAMOTIDINE omeprazole 97948789482 Radha Cruz APRN METHOCARBAMOL 500 MG TABS Take 1 tablet by mouth every six to eight hours as needed FOR MUSCLE SPASM methocarbamol 14239835124 Radha Cruz APRN OMEPRAZOLE 20 MG CPDR TAKE ONE CAPSULE BY MOUTH EVERY DAY NEEDED FOR HEARTBURN OR REFLUX NOT IMPROVED BY FAMOTIDINE omeprazole 90533328953 Radha Cruz APRN ATORVASTATIN CALCIUM 20 MG TABS Take 1 tablet by mouth at bedtime atorvastatin 44321159338 Radha Cruz APRN ONDANSETRON HCL 4 MG TABS TAKE 1 TABLET BY MOUTH EVERY 6 TO 8 HOURS NEEDED ondansetron hcl 69543450301 Radha Cruz APRN ProAir HFA 90 mcg/actuation HFA aerosol inhaler INHALE 2 PUFFS BY MOUTH FOUR TIMES DAILY NEEDED albuterol sulfate 58875046278 Radha Cruz APRN FAMOTIDINE 20 MG TABS Take 1 tablet by mouth twice a day as needed PRN for heartburn famotidine 96049460487 Radha Cruz APRN IBUPROFEN 800 MG TABS Take 1 tablet by mouth every eight hours as needed for pain. Take with food. ibuprofen 73775829186 Radha Cruz [employer] VITAMIN D 50 MCG (1999) TABS Take 1 tablet by mouth once a day cholecalciferol (vitamin d3) 03091438843 Radha Cruz APRN TAMSULOSIN HCL 0.4 MG CAPS Take 1 capsule by mouth every night tamsulosin 65990237666 Radha Cruz APRN CARVEDILOL 6.25 MG TABS Take 1 tablet by mouth twice a day carvedilol 58523842411 Radha Cruz APRN VITAMIN D3 50 MCG (1999) TABS Take 1 tablet by mouth once a day 01/03 cholecalciferol (vitamin d3) 31832853985 Jory Gastenveld [employer] METHOCARBAMOL 500 MG TABS 1 tablet by mouth every six to eight hours FOR MUSCLE SPASM 01/03 methocarbamol 09114745667 Jory Gastenveld [employer] ONDANSETRON HCL 4 MG TABS Take 1 tablet by mouth every six to eight hours as needed 01/03 ondansetron hcl 79072288543 Jory Gastenveld [employer] METHOCARBAMOL 500 MG TABS Take 1 tablet by mouth every six to eight hours as needed FOR MUSCLE SPASM methocarbamol 94690776821 Jory Gastenveld [employer] ONDANSETRON HCL 4 MG TABS TAKE 1 TABLET BY MOUTH EVERY 6 TO 8 HOURS NEEDED ondansetron hcl 27333542071 Radha Cruz APRN VITAMIN D 50 MCG (1999) TABS Take 1 tablet by mouth once a day TAKE 1 TABLET BY MOUTH EVERY DAY cholecalciferol (vitamin d3) 77212559362 Jory Gastenveld [employer] CARVEDILOL 6.25 MG TABS Take 1 tablet by mouth twice a day 12/12 carvedilol 60907799929 Nicole Matamoros [employer] FAMOTIDINE 20 MG TABS Take 1 tablet by mouth twice a day FOR REFLUX/HEARTBU RN. 12/12 famotidine 50937184966 Nicole Matamoros APRN TAMSULOSIN HCL 0.4 MG CAPS Take 1 capsule by mouth at bedtime 12/12 tamsulosin 59376839177 Nicole Matamoros [employer] ATORVASTATIN CALCIUM 20 MG TABS Take 1 tablet by mouth at bedtime 12/12 atorvastatin 27578703024 Nicole Matamoros APRN CARVEDILOL 6.25 MG TABS TAKE 1 TABLET BY MOUTH TWICE DAILY carvedilol 17278824415 Radha Cruz APRN TAMSULOSIN HCL 0.4 MG CAPS TAKE 1 CAPSULE BY MOUTH AT BEDTIME tamsulosin 21152124680 Radha Pranavshabana TURNERN FAMOTIDINE 20 MG TABS TAKE 1 TABLET BY MOUTH TWICE DAILY FOR REFLUX OR HEARTBURN famotidine 79832960432 Radha Pranavshabana TURNERN ATORVASTATIN CALCIUM 20 MG TABS TAKE 1 TABLET BY MOUTH AT BEDTIME atorvastatin 37386566445 Radha Cruz APRN IBUPROFEN 800 MG TABS Take 1 tablet by mouth every eight hours as needed 12/05 ibuprofen 67988598019 Lazara Wang [employer] IBUPROFEN 800 MG TABS TAKE 1 TABLET BY MOUTH EVERY 8 HOURS NEEDED ibuprofen 75245109581 Lazara Wang APRN ALBUTEROL SULFATE HFA 108 (90 Base) MCG/ACT AERS Inhale 2 puff by mouth four times a day as needed 10/31 albuterol sulfate 62067466927 Nicole CruzdianelysPerkinsN ProAir HFA 90 mcg/actuation HFA aerosol inhaler INHALE 2 PUFFS BY MOUTH FOUR TIMES DAILY NEEDED albuterol sulfate 01675116053 Radha Cruz APRN OMEPRAZOLE 20 MG CPDR Take 1 capsule by mouth once a day as needed FOR HEARTBURN OR REFLUX NOT IMPROVED BY FAMOTIDINE. 10/11 omeprazole 26508006400 Radha Curshabana TURNERN OMEPRAZOLE 20 MG CPDR TAKE ONE CAPSULE BY MOUTH EVERY DAY NEEDED FOR HEARTBURN OR REFLUX NOT IMPROVED BY FAMOTIDINE omeprazole 94644479669 Radha Cruz APRN BUSPIRONE HCL 15 MG TABS TAKE 1 TABLET BY MOUTH FOUR TIMES DAILY buspirone 07695232955 Radha Cruz APRN TAMSULOSIN HCL 0.4 MG CAPS Take 1 capsule by mouth at bedtime tamsulosin 97467246152 Radha Cruz APRN ATORVASTATIN CALCIUM 20 MG TABS Take 1 tablet by mouth at bedtime atorvastatin 56292994798 Radha Cruz APRN METHOCARBAMOL 500 MG TABS 1 tablet by mouth every six to eight hours FOR MUSCLE SPASM methocarbamol 26444678819 Radha Cruz APRN OMEPRAZOLE 20 MG CPDR Take 1 capsule by mouth once a day as needed FOR HEARTBURN OR REFLUX NOT IMPROVED BY FAMOTIDINE. omeprazole 44395578171 Radha Cruz APRN CARVEDILOL 3.125 MG TABS TAKE 1 TABLET BY MOUTH TWICE DAILY 06/18 carvedilol 36637044327 Lazara Askchauncey TURNERN LORATADINE 10 MG TABS Take 1 tablet by mouth once a day for allergies loratadine 28797584615 Radha Cruz APRN CARVEDILOL 6.25 MG TABS Take 1 tablet by mouth twice a day carvedilol 72457255807 Radha Cruz APRN VITAMIN D3 50 MCG (1999 UT) TABS Take 1 tablet by mouth once a day cholecalciferol (vitamin d3) 77095654288 Radha Cruz APRN FAMOTIDINE 20 MG TABS Take 1 tablet by mouth twice a day FOR REFLUX/HEARTBU RN. famotidine 60839426293 Radha Cruz APRN METHOCARBAMOL 500 MG TABS Take 1 tablet by mouth every six to eight hours as needed for pain 07/04 methocarbamol 42594228634 Radha Curtsinger [employer] METHOCARBAMOL 500 MG TABS TAKE 1 TABLET BY MOUTH EVERY 6 TO 8 HOURS NEEDED FOR PAIN methocarbamol 64076015307 Radha Larisainger [employer] CARVEDILOL 3.125 MG TABS Take 1 tablet by mouth twice a day 07/03 carvedilol 34530204660 Radha Anthony [employer] OMEPRAZOLE 20 MG CPDR Take 1 capsule by mouth once a day as needed 07/03 omeprazole 73031494332 Radha Anthony [employer] ATORVASTATIN CALCIUM 20 MG TABS Take 1 tablet by mouth every night 07/03 atorvastatin 90833460157 Radha Cruz [employer] Flomax 0.4 mg capsule Take 1 capsule by mouth every night 07/03 tamsulosin 58961765218 Radha Cruz [employer] OMEPRAZOLE 20 MG CPDR TAKE 1 CAPSULE BY MOUTH EVERY DAY NEEDED omeprazole 06111764385 Lazara Askren [employer] CARVEDILOL 3.125 MG TABS TAKE 1 TABLET BY MOUTH TWICE DAILY carvedilol 66028003127 Lazara Askren [employer] TAMSULOSIN HCL 0.4 MG CAPS TAKE 1 CAPSULE BY MOUTH EVERY NIGHT tamsulosin 41941470865 Lazara Askren [employer] ATORVASTATIN CALCIUM 20 MG TABS TAKE 1 TABLET BY MOUTH EVERY NIGHT atorvastatin 01631277570 [facility] [employer] LORATADINE 10 MG TABS Take 1 tablet by mouth once a day 06/19 loratadine 79110633798 Radha Anthony [employer] LORATADINE 10 MG TABS TAKE 1 TABLET BY MOUTH EVERY DAY FOR ALLERGIES loratadine 06079052274 Radha Curtsinger [employer] LORATADINE 10 MG TABS Take 1 tablet by mouth once a day loratadine 12198199175 Radha Cruz [employer] METHOCARBAMOL 500 MG TABS Take 1 tablet by mouth every six to eight hours as needed for pain methocarbamol 96016676762 Radha Cruz APRN CARVEDILOL 3.125 MG TABS Take 1 tablet by mouth twice a day carvedilol 23110766793 Radha Curz APRN ALBUTEROL SULFATE HFA 108 (90 Base) MCG/ACT AERS Inhale 2 puff by mouth four times a day as needed albuterol sulfate 85001379715 Radha Cruz APRN Flomax 0.4 mg capsule Take 1 capsule by mouth every night tamsulosin 50984107814 Radha Cruz APRN ONDANSETRON HCL 4 MG TABS Take 1 tablet by mouth every six to eight hours as needed ondansetron hcl 98252351436 Radha Cruz APRN ATORVASTATIN CALCIUM 20 MG TABS Take 1 tablet by mouth every night atorvastatin 52620915445 Radha Cruz APRN OMEPRAZOLE 20 MG CPDR Take 1 capsule by mouth once a day as needed omeprazole 42545196322 Radha Cruz APRN METHOCARBAMOL 500 MG TABS Take 1 tablet by mouth every six to eight hours as needed 0 11/03 METHOCARBAMOL Jamialiset Pichardo [employer] METHOCARBAMOL 500 MG TABS TAKE 1 TABLET BY MOUTH EVERY 6 TO 8 HOURS NEEDED FOR PAIN methocarbamol 69622088876 Radha Cruz APRN ALBUTEROL SULFATE HFA 108 (90 Base) MCG/ACT AERS Inhale 2 puff by mouth four times a day as needed albuterol sulfate 00744178201 Mary Anne Menon [employer] PROF[employer]AL SUBOXONE 8-2 MG FILM buprenorphine-nal oxone 14818896124 [facility] OMEPRAZOLE 20 MG CPDR Take 1 capsule by mouth once a day as needed omeprazole 04691075215 Jamia Pichardo APRN CARVEDILOL 3.125 MG TABS Take 1 tablet by mouth twice a day carvedilol 43907300503 Radha Cruz APRN METHOCARBAMOL 500 MG TABS Take 1 tablet by mouth every six to eight hours as needed METHOCARBAMOL Jamia Pichardo APRN IBUPROFEN 800 MG TABS Take 1 tablet by mouth every eight hours as needed ibuprofen 63704029074 Radha Cruz APRN ONDANSETRON HCL 4 MG TABS Take 1 tablet by mouth every six to eight hours as needed ondansetron hcl 36073555061 Jamia Pichardo APRN DESVENLAFAXINE ER 50 MG [id number] Take 1 tablet by mouth once a day desvenlafaxine 29326281564 Jamia Pichardo APRN ATORVASTATIN CALCIUM 20 MG TABS Take 1 tablet by mouth every night atorvastatin 02557554247 Jamia Pichardo APRN LORATADINE 10 MG TABS Take 1 tablet by mouth once a day loratadine 92542647603 Mary Anne Menon APRN DOXEPIN HCL 50 MG CAPS Take 1-2 capsule by mouth every night doxepin 62806151559 Jamia Pichardo APRN Flomax 0.4 mg capsule Take 1 capsule by mouth every night tamsulosin 38915287290 Mary Anne Menon APRN IBUPROFEN 800 MG TABS TAKE 1 TABLET BY MOUTH EVERY 8 HOURS NEEDED. USE SPARINGLY. IBUPROFEN 33908636177 Radha Cruz APRN SUBOXONE 8-2 MG FILM BUPRENORPHINE HCL-NALOXONE HCL 75969704335 Radha Cruz APRN CONCERTA 54 MG CR-TABS TAKE 1 TABLET BY MOUTH EACH MORNING PER PSYCHIATRY 08/10 METHYLPHENIDATE HCL 85321213761 Radha Cruz APRN FISH OIL 1000 MG CAPS TAKE 1 CAPSULE BY MOUTH 2 TIMES A DAY 08/10 OMEGA-3 FATTY ACIDS 78951442903 Jamia Pichardo APRN ATORVASTATIN CALCIUM 20 MG TABS TAKE 1 TABLET BY MOUTH AT BEDTIME ATORVASTATIN CALCIUM 15950768725 Radha Cruz APRN FISH OIL 1000 MG CAPS TAKE 1 CAPSULE BY MOUTH 2 TIMES A DAY OMEGA-3 FATTY ACIDS 34031891780 Jamia Pichardo APRN METHOCARBAMOL 500 MG TABS TAKE 1 TABLET BY MOUTH EVERY 6 TO 8 HOURS NEEDED FOR PAIN METHOCARBAMOL 65940136934 Radha Cruz APRN DESVENLAFAXINE ER 50 MG [id number] TAKE 1 TABLET BY MOUTH EVERY DAY PER PSYCHIATRY DESVENLAFAXINE 06914167952 Jamia Pichardo APRN DOXEPIN HCL 50 MG CAPS TAKE 1 TO 2 CAPSULES BY MOUTH EVERY NIGHT AT BEDTIME PER PSYCHIATRY DOXEPIN HCL 28719567856 Jamia Pichardo APRN ACETAMINOPHEN 500 MG TABS TAKE 1 TABLETS BY MOUTH EVERY 6 HOURS NEEDED FOR PAIN OR FEVER. MAX 2000MG PER DAY. 12/28 ACETAMINOPHEN 80895812859 Radha Cruz APRN CONCERTA 54 MG CR-TABS TAKE 1 TABLET BY MOUTH EACH MORNING PER PSYCHIATRY METHYLPHENIDATE HCL 18233220590 Jamia Pichardo APRN VITAMIN D3 1.25 MG (21731 UT) CAPS TAKE 1 CAPSULE BY MOUTH ONCE PER WEEK 12/28 CHOLECALCIFEROL 45429188362 Radha Cruz APRN ATORVASTATIN CALCIUM 10 MG TABS TAKE 1 TABLET BY MOUTH EVERY NIGHT AT BEDTIME 12/28 ATORVASTATIN CALCIUM 53896800060 Radha Cruz APRN OMEPRAZOLE 20 MG CPDR TAKE 1 CAPSULE BY MOUTH EVERY DAY NEEDED OMEPRAZOLE 36547221965 Radha Cruz APRN ONDANSETRON HCL 4 MG TABS TAKE 1 TABLET BY MOUTH EVERY 6 TO 8 HOURS NEEDED FOR NAUSEA ONDANSETRON HCL 23316974864 Radha Cruz APRN ACETAMINOPHEN 500 MG TABS TAKE 1 TABLETS BY MOUTH EVERY 6 HOURS NEEDED FOR PAIN OR FEVER. MAX 2000MG PER DAY. ACETAMINOPHEN 00727840452 Radha Cruz APRN IBUPROFEN 800 MG TABS TAKE 1 TABLET BY MOUTH EVERY 8 HOURS NEEDED 10/23 IBUPROFEN 69553594601 Radha Cruz APRN OMEPRAZOLE 20 MG CPDR TAKE 1 CAPSULE BY MOUTH EVERY DAY NEEDED OMEPRAZOLE 92014377545 Radha Cruz APRN CARVEDILOL 3.125 MG TABS TAKE 1 TABLET BY MOUTH TWICE DAILY CARVEDILOL 11245650036 Radha Curtsinger [employer] ALBUTEROL SULFATE HFA 108 (90 Base) MCG/ACT AERS INHALE 2 PUFFS BY MOUTH FOUR TIMES DAILY NEEDED FOR WHEEZING ALBUTEROL SULFATE 41095438914 Radha Pranavtsinger [employer]AL [employer] MELATONIN 5 MG TABS TAKE 1 TO 2 TABLETBY MOUTH EVERY NIGHT AT BEDTIME PER PSYCHIATRY 07/11 MELATONIN 25557996250 Radha Curtsinger [employer] HYDROXYZINE HCL 25 MG TABS TAKE 1 TABLET BY MOUTH EVERY 6 HOURS NEEDED FOR ANXIETY PER PSYCHIATRY 0 07/11 HYDROXYZINE HCL 48612484673 Radha Curtsinger [employer] ATORVASTATIN CALCIUM 10 MG TABS TAKE 1 TABLET BY MOUTH EVERY NIGHT AT BEDTIME ATORVASTATIN CALCIUM 13474374461 Radha Curtsinger [employer] CARVEDILOL 3.125 MG TABS TAKE 1 TABLET BY MOUTH TWICE DAILY( MUST KEEP APPOINTMENT) CARVEDILOL 47823287524 Radha Larisainger [employer] LORATADINE 10 MG TABS TAKE 1 TABLET BY MOUTH EVERY DAY FOR ALLERGIES LORATADINE 92563506119 Radha Pranavjayneinger [employer] ONDANSETRON 8 MG TBDP DISSOLVE 1 TABLET ON THE TONGUE TWICE DAILY NEEDED FOR NAUSEA ONDANSETRON 18002617267 Radha Curtsinger [employer] ONDANSETRON ODT 8MG TABLETS DISSOLVE ONE TABLET BY MOUTH TWICE DAILY NEEDED FOR NAUSEA ONDANSETRON 12832264626 Radha Pranavjayneinger [employer] VITAMIN D3 1.25 MG (89763 UT) CAPS TAKE 1 CAPSULE BY MOUTH ONCE PER WEEK CHOLECALCIFEROL 76519544020 Radha Pranavjayneinger [employer] CONCERTA 54 MG CR-TABS TAKE 1 TABLET BY MOUTH EACH MORNING PER PSYCHIATRY METHYLPHENIDATE HCL 03791961414 Radha Pranavtsinger [employer] SERVICES PROFESSIONAL ZYPREXA 10 MG ORAL TABLET PER PSYCHIATRY 0 11/19 OLANZAPINE [id number] Radha Curtsinger [employer] PROFESSIONAL ZYPREXA 10 MG ORAL TABLET PER PSYCHIATRY OLANZAPINE [id number] Radha Pranavtsinger [employer] PROFESSIONAL OXCARBAZEPINE 300 MG TABS TAKE 1 TABLET BY MOUTH TWICE A DAY PER PSYCHIATRY 08/06 OXCARBAZEPINE [id number] Radha Curtsinger [employer] PROFESSIONAL PROPRANOLOL HCL 10 MG TABS TAKE 2 TABLETS BY MOUTH EVERY NIGHT AT BEDTIME NEEDED FOR ANXIETY PER PSYCHIATRY 08/06 PROPRANOLOL HCL [id number] Radha Curtsinger [employer] PROFESSIONAL VENTOLIN HFA 108 (90 Base) MCG/ACT AERS INHALE 2 INHALATIONS BY MOUTH FOUR TIMES DAILY NEEDED FOR WHEEZING ALBUTEROL SULFATE [id number] Radha Pranavtsinger [employer] PROFESSIONAL OMEPRAZOLE 20 MG CPDR TAKE 1 CAPSULE BY MOUTH EVERY DAY OMEPRAZOLE [id number] Radha Curtsinger [employer] PROFESSIONAL TAMSULOSIN 0.4MG CAPSULES TAKE 1 CAPSULE BY MOUTH EVERY NIGHT AT BEDTIME TAMSULOSIN HCL [id number] Radha Pranavtsinger [employer] PROFESSIONAL LORATADINE 10 MG TABS TAKE 1 TABLET BY MOUTH 1 TIME A DAY NEEDED FOR ALLERGIES, PLEA LORATADINE [id number] Radha Pranavinger [employer] PROFESSIONAL CARVEDILOL 3.125 MG TABS TAKE 1 TABLET BY MOUTH TWICE DAILY CARVEDILOL 28174393741 Radha Pranavinger [employer] PROFESSIONAL METHOCARBAMOL 500 MG TABS TAKE 1 TABLET BY MOUTH EVERY 6 TO 8 HOURS NEEDED FOR PAIN METHOCARBAMOL 94159164741 Radha Curtsinger [employer] PROFESSIONAL TAMIFLU 75 MG CAPS TAKE 1 CAPSULE BY MOUTH TWICE A DAY 06/13 OSELTAMIVIR PHOSPHATE [id number] Radha Pranavinger [employer] PROFESSIONAL KLONOPIN 0.5 MG TABS TAKE 1 TABLET BY MOUTH 3 TIMES A DAY NEEDED FOR ANXIETY PER PSYCHIATRY 06/08 CLONAZEPAM [id number] Radha Pranavtsinger [employer] PROFESSIONAL HYDROCODONE-ACETA MINOPHEN 10-325 MG TABS TAKE 1 TABLET BY MOUTH EVERY 6 HOURS NEEDED FOR PAIN 06/08 HYDROCODONE-ACETA MINOPHEN [id number] Radha Pranavtsinger [employer] PROFESSIONAL HYDROXYZINE HCL 25 MG TABS TAKE 1 TABLET BY MOUTH EVERY 6 HOURS NEEDED FOR ANXIETY PER PSYCHIATRY HYDROXYZINE HCL 36854406338 Radha Curtsinger [employer] PROFESSIONAL KLONOPIN 0.5 MG TABS TAKE 1 TABLET BY MOUTH 3 TIMES A DAY NEEDED FOR ANXIETY PER PSYCHIATRY CLONAZEPAM 46277217319 Radha Pranavtsinger [employer] PROFESSIONAL DESVENLAFAXINE ER 50 MG [id number] TAKE 1 TABLET BY MOUTH EVERY DAY PER PSYCHIATRY DESVENLAFAXINE [id number] Radha Curtsinger [employer] PROFESSIONAL DOXEPIN HCL 50 MG CAPS TAKE 1 TO 2 CAPSULES BY MOUTH EVERY NIGHT AT BEDTIME PER PSYCHIATRY DOXEPIN HCL 74717963779 Radha Curtsinger [employer] PROFESSIONAL CVS MELATONIN 5 MG TABS TAKE 1 TO 2 TABLETBY MOUTH EVERY NIGHT AT BEDTIME PER PSYCHIATRY MELATONIN 53304190029 Radha Curtsinger [employer] PROFESSIONAL OXCARBAZEPINE 300 MG TABS TAKE 1 TABLET BY MOUTH TWICE A DAY PER PSYCHIATRY OXCARBAZEPINE 26068275685 Radha Curtsinger [employer] PROFESSIONAL PROPRANOLOL HCL 10 MG TABS TAKE 2 TABLETS BY MOUTH EVERY NIGHT AT BEDTIME NEEDED FOR ANXIETY PER PSYCHIATRY PROPRANOLOL HCL 39867274389 Radha Curtsinger [employer] PROFESSIONAL LORATADINE 10 MG TABS TAKE 1 TABLET BY MOUTH 1 TIME A DAY NEEDED FOR ALLERGIES LORATADINE 29954696451 Radha Curtsinger [employer] PROFESSIONAL ZOFRAN ODT 8 MG ORAL TABLET DISINTEGRATING TAKE ONE TABLET BY MOUTH TWICE DAILY NEEDED FOR NAUSEA ONDANSETRON 24259672116 Radha Larisainger [employer] PROFESSIONAL FLOMAX 0.4 MG ORAL CAPSULE TAKE ONE CAPSULE BY MOUTH EVERYNIGHT AT BEDTIME TAMSULOSIN HCL 98898801612 Radha Curtsinger [employer] PROFESSIONAL PROPRANOLOL HCL 10 MG TABS TAKE 2 TABLETS BY MOUTH EVERY NIGHT AT BEDTIME NEEDED FOR ANXIETY PROPRANOLOL HCL 61978608611 Radha Curtsinger [employer] PROFESSIONAL OXCARBAZEPINE 300 MG TABS TAKE 1 TABLET BY MOUTH TWICE A DAY OXCARBAZEPINE 98097601336 Radha Curtsinger [employer] PROFESSIONAL CVS MELATONIN 5 MG TABS TAKE 1 TO 2 TABLETBY MOUTH EVERY NIGHT AT BEDTIME MELATONIN 63868744422 Radha Curtsinger [employer] PROFESSIONAL DOXEPIN HCL 50 MG CAPS TAKE 1 TO 2 CAPSULES BY MOUTH EVERY NIGHT AT BEDTIME DOXEPIN HCL 18511462799 Radha Cruz WEB SERVICES PROFESSIONAL DESVENLAFAXINE ER 50 MG [id number] TAKE 1 TABLET BY MOUTH EVERY DAY DESVENLAFAXINE 62297562523 Radha Anthony [employer]B [employer] PROFESSIONAL HYDROCODONE-ACETA MINOPHEN 10-325 MG TABS TAKE 1 TABLET BY MOUTH EVERY 6 HOURS NEEDED FOR PAIN HYDROCODONE-ACETA MINOPHEN 43442875562 Radha Anthony [employer] PROFESSIONAL VENTOLIN HFA 108 (90 Base) MCG/ACT AERS TAKE 2 INHALATIONS 4 TIMES A DAY NEEDED FOR WHEEZING ALBUTEROL SULFATE 39296848270 Radha Cruz [employer] PROFESSIONAL KLONOPIN 0.5 MG TABS TAKE 1 TABLET BY MOUTH 3 TIMES A DAY NEEDED FOR ANXIETY CLONAZEPAM 86319454706 Radha Cruz [employer]B [employer] PROFESSIONAL OMEPRAZOLE 20 MG CPDR TAKE 1 CAPSULE BY MOUTH ONCE A DAY OMEPRAZOLE 50206598841 Radha Cruz APRN METHOCARBAMOL 500 MG TABS TAKE 1 TABLET BY MOUTH EVERY 6-8 HOURS NEEDED FOR PAIN METHOCARBAMOL 16095584149 Radha Cruz [employer]B SERVICES PROFESSIONAL IBUPROFEN 800 MG TABS TAKE 1 TABLET BY MOUTH EVERY 8 HOURS NEEDED IBUPROFEN 36146887910 Radha Cruz [employer] PROFESSIONAL HYDROXYZINE HCL 25 MG TABS TAKE 1 TABLET BY MOUTH EVERY 6 HOURS NEEDED FOR ANXIETY HYDROXYZINE HCL 08557319291 Radhaliset Cruz WEB SERVICES PROFESSIONAL CARVEDILOL 3.125 MG TABS TAKE 1 TABLET BY MOUTH 2 TIMES A DAY CARVEDILOL 50704773587 Radha Cruz [employer] PROFESSIONAL ATORVASTATIN CALCIUM 10 MG TABS TAKE 1 TABLET BY MOUTH AT BEDTIME ATORVASTATIN CALCIUM [id number] Radha Cruz WEB SERVICES PROFESSIONAL Medications Administered No information available. 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 Fito Espinoza, [place], [address] [facility] Adults [facility], [address], [address] Fito Espinoza, [place], [address] Referral excluded fr report: Referral [facility] Adults [facility], [address], [address] Fito Espinoza, [place], [address] Referral [facility] Adults [facility], [address], [address] Fito Espinoza, [place], [address] Referral excluded fr om report: Pending order [...] Code Procedure Name Date Entry Date [facility] 25275 T1 Lipid Panel CPT-3077F Most recent systolic blood pressure >=140 mm Hg CPT-3079F Most recent diastoli c blood pressure 80-89 mm Hg 4004F Patient screened for tobacco use and received tobacco cessation intervention [facility]-[id number] Medication Reconciliation CPT-1159F Medication list docu mented in medical record SCT-[id number] Medication Reconciliation CPT-3074F Most recent systolic blood pressure <130 mm Hg CPT-3078F Most recent diastoli c blood pressure <80 mm Hg [facility] 6399 T1 CBC with diff [facility] 04058 T1 CMP [facility] 11616 T1 Lipid Panel [facility] 16974 T1 TSH reflex to free T4 06/22/02 [facility] 5363 T1 Prostate Screening 01/14 SCT-[id number] Medication Reconciliation CPT-3074F Most recent systolic blood pressure <130 mm Hg CPT-3078F Most recent diastoli c blood pressure <80 mm Hg SCT-[id number] Medication Reconciliation CPT-3077F Most recent systolic blood pressure >=140 mm Hg CPT-3078F Most recent diastoli c blood pressure <80 mm Hg CPT-3077F Most recent systolic blood pressure >=140 mm Hg CPT-3079F Most recent diastoli c blood pressure 80-89 mm Hg 58171 Fluzone Quadrivalent CPT-40237 IMADM >18YR IM [address] VAC/TOXOID 02/04 SCT-[id number] Medication Reconciliation [facility] 6399 T1 CBC with diff [facility] 77535 T1 CMP [facility] 83194 T1 Lipid Panel [facility] 21860 T1 TSH reflex to free T4 24 [facility] 73149 T2 Vitamin D 25 Hydroxy 2020 CPT-1159F Medication list docu mented in medical record CPT-3075F Most recent systolic blood pressure 130-139 mm Hg SCT-[id number] Medication Reconciliation CPT-3074F Most recent systolic blood pressure <130 mm Hg CPT-3079F Most recent diastoli c blood pressure 80-89 mm Hg CPT-3077F Most recent systolic blood pressure >=140 mm Hg CPT-3079F Most recent diastoli c blood pressure 80-89 mm Hg CPT-1159F Medication list docu mented in medical record SCT-[id number] Medication Reconciliation [facility] 81751 T1 CMP [facility] 60653 T1 TSH reflex to free T4 202 05/16/29 [facility] 48592 T1 CMP CPT-3075F Most recent systolic blood pressure 130-139 mm Hg CPT-3079F Most recent diastoli c blood pressure 80-89 mm Hg SCT-[id number] Medication Reconciliation [facility] 47614 T1 CMP [facility] 6399 T1 CBC with diff [facility] 96755 T1 Lipid Panel [facility] 42414 T1 TSH reflex to free T4 202 [facility] 76801 T2 Vitamin D 25 Hydroxy 2019 CPT-3075F Most recent systolic blood pressure 130-139 mm Hg CPT-3079F Most recent diastoli c blood pressure 80-89 mm Hg SCT-[id number] Medication Reconciliation CPT-60294 Engerix-B Intramuscu lar Injectable 20 MCG/ML CPT-27335 IMADM >18YR IM ROUTE 1ST VAC/TOXOID 12/21 SCT-[id number] Medication Reconciliation CPT-80276 Engerix-B Intramuscu lar Injectable 20 MCG/ML CPT-19745 Hep A adult dosage 1 CPT-11323 IMADM >18YR IM ROUTE 1ST VAC/TOXOID 10/22 CPT-47471 IMADM >18YR IM ROUTE EA ADDL VAC/TOXOID 2 [facility] Other Other [facility] 12437 T1 Acute Hepatits Panel 2019 Other Other SCT-[id number] Medication Reconciliation [facility] 40454 T1 CMP [facility] 75614 T1 Lipid Panel [facility] 90146 T1 CMP [facility] 12105 T1 Lipid Panel CPT-3075F Most recent systolic blood pressure 130-139 mm Hg CPT-3079F Most recent diastoli c blood pressure 80-89 mm Hg SCT-[id number] Medication Reconciliation SCT-[id number] Medication Reconciliation CPT-3074F Most recent systolic blood pressure <130 mm Hg CPT-3078F Most recent diastoli c blood pressure <80 mm Hg [facility] 6399 T1 CBC with diff [facility] 91763 T1 CMP [facility] 74262 T1 Lipid Panel [facility] 91675 T1 TSH reflex to free T4 201 01/19/24 [facility] 67818 T2 Vitamin D 25 Hydroxy 2018 [facility] 5363 T1 Prostate Screening 0 12/04 SCT-[id number] Medication Reconciliation CPT-3075F Most recent systolic blood pressure 130-139 mm Hg CPT-3079F Most recent diastoli c blood pressure 80-89 mm Hg SCT-[id number] Medication Reconciliation CPT-3075F Most recent systolic blood pressure 130-139 mm Hg CPT-3079F Most recent diastoli c blood pressure 80-89 mm Hg [facility] 5363 T1 Prostate Screening 11/19 [facility] 6399 T1 CBC with diff [facility] 36367 T1 CMP [facility] 496 T1 HGBA1c [facility] 51760 T1 Lipid Panel [facility] 97483 T1 TSH reflex to free T4 201 12/18/08 [facility] 05419 T2 Vitamin D 25 Hydroxy 2017 [facility] SCT-[id number] Medication Reconciliation CPT-3075F Most recent systolic blood pressure 130-139 mm Hg CPT-3078F Most recent diastoli c blood pressure <80 mm Hg Pain [facility] 33690 T1 CMP SCT-[id number] Medication Reconciliation CPT-3075F Most recent systolic blood pressure 130-139 mm Hg CPT-3078F Most recent diastoli c blood pressure <80 mm Hg [facility] [address] [facility] [address] [facility] CPT-3075F Most recent systolic blood pressure 130-139 mm Hg CPT-3079F Most recent diastoli c blood pressure 80-89 mm Hg [facility] 6399 T1 CBC with diff [facility]-[id number] Medication Reconciliation [facility] 97154 T1 CMP [facility] 496 T1 HGBA1c [facility] 65328 T1 Lipid Panel [facility] 68660 T1 TSH reflex to free T4 201 [...]
--- OUTSIDE RECORDS SUMMARY | 2025-04-04 14:13 | XMS_ITS | Clinical Summary ---
Author Organization [facility] Address [address] [place] [address] Care Team Providers Care Management Lead Name Role Phone Unavailable Primary Care Provider Unavailabl e Social History Tobacco Use Types Packs/Day Years Used Date Smoking Tobacco: Never Assessed Sex and Gender Information Value Date Recorded Sex Assigned at Not on file Legal Sex Male 7:29 PM EDT Gender Identity Not on file Sexual Orientation Not on file Plan of Treatment Not on file Insurance Fred ROTHMAN [address] MEDICAID
[2025-04-04 14:15] LABS: Hepatitis C Ab Qual. W/ RFX REACTIVE (Negative)
--- NOTE | 2025-04-04 14:26 | HMH.PHAINT1 ---
Pharmacy Intervention Comments: MEDICATION RECONCILIATION COMPLETE USING EXTERNAL PHARMACY FILL HISTORY, RECENT MD OFFICE VISIT NOTE, AND SUNDAR REPORT.
[2025-04-04] MEDS: ACETAMINOPHEN 325MG TAB 650 MG PO (18:24)
[2025-04-04] MEDS: IPRATROPIUM/ALBUTEROL 3 ML NEB IH ×2 (18:46→22:54)
[2025-04-04] MEDS: 0.9 % SODIUM CHLORIDE 1000ML 1,000 ML 100 ML IV (20:43)
[2025-04-04] MEDS: TAMSULOSIN 0.4MG CAPSULE 0.4 MG PO (20:43)
[2025-04-04] MEDS: DOXEPIN HCL 25 MG CAPSULE 100 MG PO (20:44)
[2025-04-04 22:04] LABS: Microscopic, Urine URINE MICROSCOPIC (MICROSCOPIC)
[2025-04-04 22:06] LABS: Bilirubin,Urine Negative (Negative); Color,Urine YELLOW (Yellow); Glucose,Urine (UA) Negative (Negative); Ketones,Urine Negative (Negative); Leukocyte Esterase,Urine Negative (Negative); PH,Urine 5.5 (5.0-8.5); Protein,Urine Negative (Negative); Specific Gravity, Urine <= 1.005 (1.005-1.030); Urobilinogen,Urine 0.2 EU/dl (0.2)
[2025-04-04] MEDS: FAMOTIDINE 20MG TABLET 20 MG PO (22:17)
[2025-04-04] MEDS: CEFEPIME HCL 2 GM in 0.9 % SODIUM CHLORIDE 100 ML IV (22:33)
[2025-04-04] MEDS: DOXYCYCLINE HYCL 100 MG TABLET PO (22:34)
[2025-04-05] VITALS (13 sets, daily range): BP systolic 104–125; BP diastolic 50–63; PULSE 91–115; RESP 14–18; TEMP 36.7–37.2; O2SAT 93–97; BMI 26.4
--- NOTE | 2025-04-05 04:15 | PC.NURSE ---
Alert and oriented. No complaints from patient this shift. Increased oxygen need when sleeping, respiratory therapy contacted when patient O2 sat maintained 86% on 3L and patient sleeping with mouth open, placed on a venti mask at 9/30%, patient later began to desat again with no recovery even when awakening, contacted respiratory therapy again who then contacted Trixiee of higher need, patient increased to 15/50%. Patient has rested well, at beside. Abx per JUL. Call light in reach.
[2025-04-05] MEDS: IPRATROPIUM/ALBUTEROL 3 ML NEB IH ×4 (06:38→23:27)
[2025-04-05] MEDS: CEFEPIME HCL 2 GM in 0.9 % SODIUM CHLORIDE 100 ML IV ×3 (06:43→22:55)
[2025-04-05] MEDS: 0.9 % SODIUM CHLORIDE 1000ML 1,000 ML 100 ML IV ×2 (06:43→16:18)
[2025-04-05] MEDS: NICOTINE 21MG/24HR PATCH 21 MG TD (06:54)
[2025-04-05 07:13] LABS: Hematocrit 36.0 % (42.0-52.0); Immature Granulocytes % 0.6 %; Mean Corpuscular HGB Conc 32.2 g/dL (31.8-35.4); Mean Corpuscular Hemoglobin 29.6 pg (27.0-31.2); Mean Corpuscular Volume 91.8 fl (80-94); Nucleated Red Blood Cells % 0 %; Platelet Count 258 K/mm3 (142-424); Red Blood Count 3.92 M/mm3 (4.60-6.20); Red Cell Distribution Width-SD 44.9 fL; White Blood Count 16.4 K/mm3 (4.8-10.8)
[2025-04-05 07:30] LABS: Alanine Aminotransferase 17 U/L (12-78); Albumin Level 4.0 g/dl (3.5-5.0); Albumin/Globulin Ratio 1.3 (1.1-1.8); Alkaline Phosphatase 88 U/L (38-126); Anion Gap 11.7 mEq/L (5-15); Aspartate Amino Transferase 35 U/L (17-59); Bilirubin,Total 0.4 mg/dl (0.2-1.3); Blood Urea Nitrogen 10 mg/dl (9-20); Calcium 8.3 mg/dl (8.4-10.2); Carbon Dioxide 23 mmol/L (22.0-30.0); Chloride 107 mmol/L (98-107); Creatinine Clearance Estimated 89 mL/min (50-200); Creatinine,Serum 1.10 mg/dl (0.66-1.25); Estimated Glomerular Filt Rate 70 ml/min (>60); GFR (African American) 85 ML/MIN (>60); Globulin 3.1 g/dL (1.3-3.2); Glucose 116 mg/dl (74-100); Potassium 3.7 mmoL/L (3.5-5.1); Sodium 138 mmol/L (136-145); Total Protein,Serum 7.1 g/dl (6.3-8.2)
[2025-04-05 07:41] LABS: Hemoglobin 11.6 g/dL (14.1-18.0)
[2025-04-05] MEDS: BUPRENORPHINE/NALOXONE 8MG/2MG ODT 2 EACH SL (09:03)
[2025-04-05] MEDS: ASPIRIN EC 81MG TABLET 81 MG PO (09:03)
[2025-04-05] MEDS: DOXYCYCLINE HYCL 100 MG TABLET PO ×2 (09:03→20:41)
[2025-04-05] MEDS: ACETAMINOPHEN 325MG TAB 650 MG PO ×2 (09:56→20:50)
--- NOTE | 2025-04-05 11:28 | HMH.PHAAMS2 ---
- Antimicrobial Stewardship Review culture & sensitivity review Stewardship interventions: culture & sensitivity review Comments: BLOOD CX PENDING, SPUTUM UNCOLLECTED. TREATING PNEUMONIA EMPIRICALLY WITH CEFEPIME.
[2025-04-05] MEDS: BUSPIRONE HCL 10 MG TABLET PO (11:36)
[2025-04-05] MEDS: SODIUM CHLORIDE 3% 15ML NEB 3 ML IH (12:58)
--- NOTE | 2025-04-05 13:44 | EXP.PN ---
Subjective *Date: 04/05/25 *Time: 13:44 Interval history: Patient states he feels about the same as yesterday, maybe slightly better. White count improving, afebrile overnight. Continue antibiotics, wean oxygen as tolerated. Exam Data for Last 24 hours Vital signs and Labs for Last 24 Hours: Temp Pulse Resp BP Pulse Ox O2 Del Method O2 Flow Rate 98.3 F 91 H 18 118/55 L 93 L Nasal Cannula 2 04/05/25 11:52 04/05/25 13:09 04/05/25 13:09 04/05/25 11:52 04/05/25 11:52 04/05/25 11:52 04/05/25 11:52 Laboratory Results - last 24 hr 04/04/25 10:57: HCV Ab AUGUSTINE w/Rflx PCR Qn Reactive, HIV Ag/Ab Combo Qual Negative 04/04/25 21:50: Urine Color Yellow, Urine Appearance Clear, Urine pH 5.5, Ur Specific Sh[place] <= 1.005, Urine Protein Negative, Urine Glucose (UA) Negative, Urine Ketones Negative, Urine Blood 1+ A, Urine Nitrate Negative, Urine Bilirubin Negative, Urine Urobilinogen 0.2, Ur Leukocyte Esterase Negative, Urine RBC None, Urine WBC None, Ur Squamous Epith Cells None, Urine Bacteria None 04/05/25 07:01: WBC 16.4 H D, RBC 3.92 L, Hgb 11.6 L D, Hct 36.0 L, MCV 91.8, MCH 29.6, MCHC 32.2, RDW 13.9, Plt Count 258, MPV 10.1, Neut % (Auto) 67.1, Lymph % (Auto) 22.4, [place] % (Auto) 8.4, Eos % (Auto) 1.1, Baso % (Auto) 0.4, Neut # (Auto) 11.0 H, Lymph # (Auto) 3.7, [place] # (Auto) 1.4 H, Eos # (Auto) 0.2, Baso # (Auto) 0.1, Sodium 138, Potassium 3.7, Chloride 107, Carbon Dioxide 23, Anion Gap 11.7, BUN 10, Creatinine 1.10 D, Estimated Creat Clear 89, Estimated GFR 70, Est GFR ( Amer) 85 D, Glucose 116 H, Calcium 8.3 L, Total Bilirubin 0.4, AST 35, ALT 17, Alkaline Phosphatase 88, Total Protein 7.1, Albumin 4.0 D, Globulin 3.1, Albumin/Globulin Ratio 1.3 I & O for Last 24 hours: Intake & Output 04/02/25 04/03/25 04/04/25 04/05/25 23:59 23:59 23:59 23:59 Intake Total 3150 / 3330 2280 / 2280 Output Total 0 / 0 0 / 0 Balance 3150 / 3330 2280 / 2280 Weight 77.564 kg 81.057 kg Microbiology Reports for the Last 24 Hours: Microbiology 04/04/25 11:16 Blood Blood Culture - Preliminary NO GROWTH AFTER 24 HOURS 04/04/25 11:09 Blood Blood Culture - Preliminary NO GROWTH AFTER 24 HOURS Constitutional Constitutional: no acute distress and chronically ill appearing *Routine HEENT Exam Head: Present normocephalic Eye: Present EOMI and PERRL ENT: Present mucous membranes moist *Routine Neck Exam Neck: Present supple; Absent lymphadenopathy *Routine Respiratory Exam Respiratory: Present CTA bilaterally *Routine Cardiovascular Exam Cardiovascular: Present RRR *Routine Abdominal Exam Abdominal: Present soft and normoactive bowel sounds; Absent tenderness *Routine Extremities Exam Extremities: Absent cyanosis, clubbing or edema *Routine Skin Exam Skin: Present warm; Absent rash *Routine Neurological Exam Neurological: Present alert and oriented X3 Assessment and Plan *Assessment and plan (1) Pneumonia: Status: Acute Category: Medical Code(s): J18.9 - Pneumonia, unspecified organism (2) Sepsis: Status: Acute Category: Medical Code(s): A41.9 - Sepsis, unspecified organism Plan Brendan Schaffer is a 54-year-old male with a medical history significant for COPD on room air, current tobacco smoker, anxiety/depression, hypertension, BPH presents with 3 weeks of shortness of breath, intermittent fevers. He states he has been having the symptoms ever since school started for kids. Denies chest pain, but does endorse shortness of breath. Intermittent fevers. Workup in the ED significant for WBC 24.6 with tachycardia, creatinine 1.4, CTA chest revealing right middle and lower lobe opacification and esophageal dysmotility. Also requiring 2 L nasal cannula. Given these findings, ED provider discussed case with me and I decided to admit patient for acute hypoxic respiratory failure secondary to sepsis from community-acquired pneumonia. #Acute hypoxic respiratory failure #Sepsis #Community-acquired pneumonia ? Presents with shortness of breath, intermittent fevers. CTA chest revealed right middle and lower lobe pneumonia. ? Initial WBC 24.6 with tachycardia, CRP 52.9. WBC down to 16.4 today ? Patient states he feels about the same as yesterday, may be slightly better. Afebrile overnight. ? Continue IV cefepime 2 g every 8 hours, doxycycline 100 mg twice daily. ? Follow-up blood, sputum cultures. ? Currently requiring 2 L, wean as tolerated. #COPD #Current tobacco smoker ? Currently stable. DuoNebs every 6 hours. #Anxiety/depression ? Continue home doxepin 100 mg nightly, desvenlafaxine 50 mg, clonazepam as needed, buspirone. #Opioid use disorder in remission ? Continue home Suboxone. #Hypertension ? Hold home losartan, propranolol in the setting of sepsis. BP stable. Full code DVT prophylaxis: Lovenox 40 mg Home medications: Restarted, held a few as above.
[2025-04-05] MEDS: DOXEPIN HCL 25 MG CAPSULE 100 MG PO (20:41)
[2025-04-05] MEDS: TAMSULOSIN 0.4MG CAPSULE 0.4 MG PO (20:41)
[2025-04-06] VITALS (7 sets, daily range): BP systolic 116–149; BP diastolic 56–73; PULSE 90–110; RESP 14–16; TEMP 36.7–36.9; O2SAT 92–99; BMI 26.9
[2025-04-06] MEDS: 0.9 % SODIUM CHLORIDE 1000ML 1,000 ML 100 ML IV (01:50)
--- NOTE | 2025-04-06 04:00 | PC.NURSE ---
Patient is pleasantly alert and oriented x4. He was observed to be resting in bed with eyes closed, respirations even and unlabored (with mild snoring) on 2 L of oxygen via nasal cannula, and no apparent distress throughout the majority of the night. A visitor has remained at the bedside. Patient had a constant headache complaint earlier this shift, of which Tylenol was administered per MAR for pain relief. Klonopin was administered per MAR for anxiety. He also endorses having a dry, persistent cough. No reports of worsening shortness of breath or chest/rib pain were made this shift. Oxygen saturations > 90%; on continuous pulse ox. Physical assessment was performed (see nursing shift biophysical intervention) as appropriately for this shift. Scheduled medications administered per MAR. Normal saline infusing at 100 mL/hr. Breathing treatments given by RTs per JUL. He ambulates independently in his room/to the bathroom without difficulties. Afebrile. At this time, the patient remains resting in bed without any further complaints. No acute changes noted thus far. Call light within reach.
[2025-04-06 05:09] LABS: MRSA DNA PCR Negative (Negative)
[2025-04-06] MEDS: IPRATROPIUM/ALBUTEROL 3 ML NEB IH (06:25)
[2025-04-06 06:28] LABS: Hematocrit 31.2 % (42.0-52.0); Hemoglobin 10.5 g/dL (14.1-18.0); Immature Granulocytes % 0.8 %; Mean Corpuscular HGB Conc 33.7 g/dL (31.8-35.4); Mean Corpuscular Hemoglobin 30.2 pg (27.0-31.2); Mean Corpuscular Volume 89.7 fl (80-94); Nucleated Red Blood Cells % 0 %; Platelet Count 257 K/mm3 (142-424); Red Blood Count 3.48 M/mm3 (4.60-6.20); Red Cell Distribution Width-SD 43.8 fL; White Blood Count 10.8 K/mm3 (4.8-10.8)
[2025-04-06] MEDS: CEFEPIME HCL 2 GM in 0.9 % SODIUM CHLORIDE 100 ML IV (06:36)
[2025-04-06 06:46] LABS: Alanine Aminotransferase 15 U/L (12-78); Albumin Level 3.6 g/dl (3.5-5.0); Albumin/Globulin Ratio 1.1 (1.1-1.8); Alkaline Phosphatase 75 U/L (38-126); Anion Gap 11.0 mEq/L (5-15); Aspartate Amino Transferase 21 U/L (17-59); Bilirubin,Total 0.4 mg/dl (0.2-1.3); Blood Urea Nitrogen 7 mg/dl (9-20); Calcium 8.7 mg/dl (8.4-10.2); Carbon Dioxide 24 mmol/L (22.0-30.0); Chloride 108 mmol/L (98-107); Creatinine Clearance Estimated 91 mL/min (50-200); Creatinine,Serum 1.10 mg/dl (0.66-1.25); Estimated Glomerular Filt Rate 70 ml/min (>60); GFR (African American) 85 ML/MIN (>60); Globulin 3.2 g/dL (1.3-3.2); Glucose 112 mg/dl (74-100); Potassium 4.0 mmoL/L (3.5-5.1); Sodium 139 mmol/L (136-145); Total Protein,Serum 6.8 g/dl (6.3-8.2)
[2025-04-06 08:19] LABS: NT Pro Brain Natriuretic Pep. 2860 pg/mL (0-125)
[2025-04-06] MEDS: NICOTINE 21MG/24HR PATCH 21 MG TD (08:34)
[2025-04-06] MEDS: ASPIRIN EC 81MG TABLET 81 MG PO (08:34)
[2025-04-06] MEDS: BUPRENORPHINE/NALOXONE 8MG/2MG ODT 2 EACH SL (08:34)
[2025-04-06] MEDS: DOXYCYCLINE HYCL 100 MG TABLET PO (08:34)
[2025-04-06 08:40] LABS: Thyroid Stimulating Hormone 2.93 uIU/mL (0.465-4.68)
--- NOTE | 2025-04-06 08:51 | HMH.PHAAMS2 ---
- Antimicrobial Stewardship Review culture & sensitivity review Stewardship interventions: culture & sensitivity review Comments: SPUTUM CX PENDING, BLOOD CX NO GROWTH AT 24 HR. PATIENT ON CEFEPIME/DOXYCYLINE FOR PNEUMONIA
--- NOTE | 2025-04-06 08:56 | EXP.PULM.CON ---
History of Present Illness History of present illness: Mr. Yuan is a 54-year-old male current current greater than 30 PPD not using any oxygen supplementation, using albuterol on as needed with reported history of tobacco abuse COPD hypertension presented to the ER with 3-week history of worsening respiratory show subjective fevers and pulmonary was called for further evaluation and management. [facility] Disclaimer: The information contained in this section may have been updated after the patient was seen, as this information can be updated by other users. Medical History (Updated 04/04/25 @ 12:22 by Deion Isabel MD) Depression Anxiety Hypertension History of broken collarbone Surgical History (Updated 01/22/25 @ 13:43 by Shahida Whalen MA) History of shoulder surgery Family History (Updated 01/22/25 @ 13:47 by Shahida Whalen MA) Other Cancer Diabetes Heart attack Hypertension Stroke Social History (Updated 01/22/25 @ 13:56 by Shahida Whalen MA) Smoking Status: Current every day smoker alcohol intake: never substance use type: former substance user current occupational status: disabled Travel in the last 8 weeks?: None household members: spouse Review of Systems Constitutional Constitutional: Reports anorexia, Reports body ache(s) and Reports fatigue Eyes Eyes: Denies eye discharge, Denies dry eyes, Denies irritation and Denies itchy eyes ENT Ears, Nose, Mouth, and Throat: Denies epistaxis, Denies facial pain, Denies lip swelling and Denies throat swelling *Cardiovascular Cardiovascular: Reports dyspnea and Reports dyspnea on exertion *Respiratory Respiratory: Reports change in phlegm color, Reports chest congestion, Reports cough, Reports dyspnea, Reports dyspnea on exertion, Reports excessive phlegm production, Denies hemoptysis, Denies pain on inspiration, Denies pain with cough and Reports wheezing *Gastrointestinal Gastrointestinal: Denies abdominal pain, Denies belching, Denies cramping, Reports nausea and Reports vomiting *Musculoskeletal Musculoskeletal: Reports back pain, Reports myalgias and Reports other (No small joint swelling or Pain) Psychiatric Psychiatric: Denies homicidal ideation and Denies suicidal ideation Endocrine Endocrine: Reports fatigue and Denies heat intolerance Hematologic/Lymphatic Hematologic/Lymphatic: Denies easy bleeding and Denies lymphadenopathy Allergic/Immunologic Allergic/Immunologic: Denies itchy eyes, Denies lip swelling, Denies throat swelling and Reports wheezing Pulmonology Exam Inpatient Vital signs and Labs for Last 24 Hours: Temp Pulse Resp BP Pulse Ox O2 Del Method O2 Flow Rate 98.0 F 99 H 16 116/56 L 94 L Nasal Cannula 3 04/06/25 07:50 04/06/25 07:50 04/06/25 07:50 04/06/25 07:50 04/06/25 08:00 04/06/25 08:00 04/06/25 08:00 FiO2 32 04/06/25 06:25 Laboratory Results - last 24 hr 04/05/25 15:52: MRSA (PCR) Negative 04/06/25 06:18: WBC 10.8 D, RBC 3.48 L, Hgb 10.5 L, Hct 31.2 L, MCV 89.7, MCH 30.2, MCHC 33.7, RDW 13.6, Plt Count 257, MPV 9.8, Neut % (Auto) 65.6, Lymph % (Auto) 21.5, [place] % (Auto) 9.7 H, Eos % (Auto) 2.0, Baso % (Auto) 0.4, Neut # (Auto) 7.1, Lymph # (Auto) 2.3, [place] # (Auto) 1.1 H, Eos # (Auto) 0.2, Baso # (Auto) 0.0, Sodium 139, Potassium 4.0, Chloride 108 H, Carbon Dioxide 24, Anion Gap 11.0, BUN 7 L D, Creatinine 1.10, Estimated Creat Clear 91, Estimated GFR 70, Est GFR ( Amer) 85, Glucose 112 H, Calcium 8.7, Total Bilirubin 0.4, AST 21 D, ALT 15, Alkaline Phosphatase 75, NT-Pro-B Natriuret Pep 2860 H, Total Protein 6.8, Albumin 3.6, Globulin 3.2, Albumin/Globulin Ratio 1.1, TSH 2.93 I & O for Labs for Last 24 Hours: Intake & Output 04/03/25 04/04/25 04/05/25 04/06/25 23:59 23:59 23:59 23:59 Intake Total 3150 / 3330 3680.000 / 3830.000 1373.333 / 1373.333 Output Total 0 / 0 0 / 0 0 / 0 Balance 3150 / 3330 3680.000 / 3830.000 1373.333 / 1373.333 Weight 171 lb 178 lb 11.2 oz 181 lb 14.4 oz Microbiology Reports for the Last 24 Hours: Microbiology 04/05/25 17:52 Sputum - Expectorated Sputum Gram Stain - Final 04/04/25 11:16 Blood Blood Culture - Preliminary NO GROWTH AFTER 24 HOURS 04/04/25 11:09 Blood Blood Culture - Preliminary NO GROWTH AFTER 24 HOURS Constitutional: Present moderate distress Head: Present normocephalic and atraumatic ENT: Present normal exam, normal oropharynx and mucous membranes moist Neck: Present normal inspection and full ROM Respiratory: Present respiratory distress, rhonchi and able to speak in complete sentences; Absent wheezes, crackles or diminished air movement Cardiac: Present S1/S2, Tachycardia and radial pulses present GI: Present soft and distention; Absent tenderness or guarding Skin: Present intact; Absent cyanosis or jaundice Neuro: Present alert, awake and oriented x 3 Extremities: Present normal inspection; Absent clubbing or cyanosis Psychiatric: Present normal affect and cooperative Meds Home Medications and Allergies Home Medications ?Medication ?Instructions ?Recorded ?Confirmed ?Type aspirin 81 mg tablet 81 mg PO DAILY #90 tabs 01/22/25 04/04/25 Rx atorvastatin 20 mg tablet 20 mg PO HS #90 tabs 01/22/25 04/04/25 Rx buprenorphine 8 mg-naloxone 2 mg 2 tab sublingual DAILY 01/22/25 04/04/25 History sublingual tablet buspirone 10 mg tablet 10 mg PO BIDP PRN Anxiety 01/22/25 04/04/25 History cholecalciferol (vitamin D3) 125 5,000 unit PO DAILY #90 caps 01/22/25 04/04/25 Rx mcg (5,000 unit) capsule clonazepam 0.5 mg tablet 0.5 mg PO BIDP PRN Anxiety 01/22/25 04/04/25 History desvenlafaxine succinate 50 mg 50 mg PO DAILY 01/22/25 04/04/25 History tablet,extended release 24 hr doxepin 100 mg capsule 100 mg PO HS 01/22/25 04/04/25 History doxepin 50 mg capsule 50 mg PO HSP PRN Sleep 01/22/25 04/04/25 History loratadine 10 mg tablet 10 mg PO DAILY #90 tabs 01/22/25 04/04/25 Rx losartan 50 mg tablet 50 mg PO DAILY #90 tabs 01/22/25 04/04/25 Rx acetaminophen 500 mg tablet 500 mg PO Q6HP PRN Mild Pain 04/04/25 04/04/25 History (Scale Score 1-4) albuterol sulfate 90 mcg/actuation 1 inh inhalation QIDP PRN 04/04/25 04/04/25 History aerosol inhaler (Ventolin HFA) shortness of breath or wheezing famotidine 20 mg tablet 20 mg PO BIDP PRN acid reflux 04/04/25 04/04/25 History methocarbamol 500 mg tablet 500 mg PO HSP PRN Muscle Spasm 04/04/25 04/04/25 History propranolol 10 mg tablet 10 mg PO TIDP PRN Anxiety 04/04/25 04/04/25 History tamsulosin 0.4 mg capsule 0.4 mg PO HS 04/04/25 04/04/25 History New Prescriptions to Start Prescriptions: Allergies Allergy/AdvReac Type Severity Reaction Status Date / Time amitriptyline Allergy Mild hyperactivi Verified 01/22/25 13:34 ty tramadol AdvReac Mild trouble Verified 01/22/25 13:34 breathing Results Laboratory Findings 04/06/25 06:18 04/06/25 06:18 PT/INR, D-dimer PT 11.5 seconds (10.1-12.5) 04/04/25 10:57 INR 1.04 (0.9-1.1) 04/04/25 10:57 Abnormal lab findings: Abnormal Labs 04/04/25 04/04/25 04/04/25 10:57 11:10 21:50 WBC 24.6 H* RBC 4.37 L Hgb 13.0 L Hct 37.9 L [place] % (Auto) Neut # (Auto) 19.3 H [place] # (Auto) 2.1 H Monocytes % (Manual) 10 H VBG pO2 88.5 H VBG O2 Saturation 96.8 H Sodium 133 L Chloride BUN Creatinine 1.40 H Estimated GFR 53 L Glucose 111 H Calcium C-Reactive Protein 52.9 H NT-Pro-B Natriuret Pep Globulin 3.6 H Urine Blood 1+ A 04/05/25 04/06/25 07:01 06:18 WBC 16.4 H D RBC 3.92 L 3.48 L Hgb 11.6 L D 10.5 L Hct 36.0 L 31.2 L [place] % (Auto) 9.7 H Neut # (Auto) 11.0 H [place] # (Auto) 1.4 H 1.1 H Monocytes % (Manual) VBG pO2 VBG O2 Saturation Sodium Chloride 108 H BUN 7 L D Creatinine Estimated GFR Glucose 116 H 112 H Calcium 8.3 L C-Reactive Protein NT-Pro-B Natriuret Pep 2860 H Globulin Urine Blood Assessment and Plan *Assessment and plan (1) Pneumonia: Status: Acute Category: Medical Code(s): J18.9 - Pneumonia, unspecified organism (2) Sepsis: Status: Acute Category: Medical Code(s): A41.9 - Sepsis, unspecified organism Plan Mr. Yuan is a 54-year-old male current current greater than 30 PPD not using any oxygen supplementation, using albuterol on as needed with reported history of tobacco abuse COPD hypertension presented to the ER with 3-week history of worsening respiratory show subjective fevers and pulmonary was called for further evaluation and management. 101.2 upon admission. No further episodes after that. Hemodynamically stable. Neutrophilic predominant leukocytosis upon admission, improving. Comprehensive respiratory viral PCR panel negative. Nasal MRSA PCR negative. CTA upon admission no pulmonary embolism. Bilateral lower lobe and right middle lobe patchy airspace disease noted. Azygos lung lobe noted. Currently receiving cefepime and doxycycline. Blood cultures no growth. Sputum less than 10 WBC. On initial examination no significant respiratory distress. No significant wheezing noted on auscultation complained of nausea and vomiting. Plan: Initiate Trelegy 100 inhaler along with DuoNebs 4 times daily as needed On room air saturating 95% and above. Antibiotics can be weaned to levofloxacin to complete a total of 5-day course. Obtain urine strep Legionella antigen prior to discharge No need for steroids from pulmonary standpoint # Thank you for involving pulmonary in this patient Will follow patient in pulmonary clinic 5 to 7 days post discharge chest x-ray PA lateral prior to clinic with
--- NOTE | 2025-04-06 09:43 | CA_ITS ---
APPROVED REPORT EXAM: Comprehensive 2D, Doppler, and color-flow Echocardiogram Senior Enlisted Advisor: Michaela Starkey RVT Ht: 5 ft 8 in Wt: 181lbs BSA: 1.96 BP: 118/55 mmHg Indications: SHORTNESS OF BREATH,ELEVATED BNP 2D Dimensions LA Volume 41.20 mL LA Volume Index 21.02 mL/m2 (M/F) 16-34 M-Mode Dimensions RVDd 2.57 cm (0.9-2.6) LA Diam 3.55 cm (1.9-4.0) LVDd 4.82 cm (3.5-5.7) LVDs 3.07 cm (3.5-5.7) IVSd 1.11 cm (0.6-1.1) PWd 0.64 cm (0.6-1.1) EF (Teich) 65.90% FS 36.30% EDV (Teich) 108.60 mL TAPSE 3.32 (<1.7) ESV (Teich) 37.00 mL LV Diastology E Decel Time 150 (160-240 msec) E/A Ratio 1.2 Aortic Valve ANJELICA Index 1.26 cm2/m2 AoV Peak Glenn. 113.0 (50-130 cm/s) AO Peak GR. 5.10 mmHg AO Mean GR. 2.80 (<5 mmHg) AO VTI 21.4 (18-25 cm) ANJELICA (VTI) 2.54 (2.5-4.5 cm2) Mitral Valve MV E Max Glenn. 115.0 (40-130 cm/s) MV A Velocity 98.0 (40-130 cm/s) E/A Ratio 1.18 MV PHT 44.0 ms Pulmonary Valve PV Peak Velocity 90.0 (50-150 cm/s) Tricuspid Valve TR P. Velocity 279.00 cm/s RAP Estimate 8.00 mmHg RVSP 39.20 mmHg Left Ventricle The left ventricle is normal size. Left ventricular systolic function is normal. The left ventricular ejection fraction is within the normal range. There is increased left ventricular wall thickness. There is normal LV segmental wall motion. The left ventricular diastolic function is indeterminate. LVEF is 55% Right Ventricle Right ventricle is mildly dilated. The right ventricular systolic function is normal. Atria Left atrium is mildly dilated. Right atrium is mildly dilated. There is no color Doppler evidence of interatrial shunt. Aortic Valve The aortic valve is mildly thickened. There is no hemodynamically significant aortic valvular stenosis. Trace aortic regurgitation is present. Mitral Valve The mitral valve is normal in structure. No evidence of mitral valve stenosis. Mild mitral regurgitation is present. Tricuspid Valve The tricuspid valve leaflets are thin and pliable. Mild tricuspid regurgitation. RVSP is 30-35 mmHg. Pulmonic Valve The pulmonary valve is grossly normal in structure. Trace pulmonic valve regurgitation is present. Great Vessels The aortic root is normal in size. IVC is normal in size and collapses >50% with inspiration. Pericardium There is no pericardial effusion. Other Information Study Quality: Technically Difficult Conclusion Normal biventricular systolic function. Mild RV dilation. Mild biatrial dilation. Mild MR, mild TR. Electronically signed by : Jessica Ortiz MD 04/06/2025 13:29:06
[2025-04-06] MEDS: ONDANSETRON 4MG/2ML VIAL 4 MG IV (10:18)
[2025-04-06] MEDS: FUROSEMIDE 40MG/4ML VIAL 40 MG IV (10:18)
[2025-04-06 11:17] LABS: Troponin I < 0.01 ng/ml (0.00-0.034)
--- NOTE | 2025-04-06 12:42 | PC.NURSE ---
pt had walk test done. standing he was 91% on room air and walking he was 95% on room air.
--- NOTE | 2025-04-06 13:42 | EXP.DC.SUM ---
General Admission date:: 04/04/25 HPI HPI HPI: Brendan Schaffer is a 54-year-old male with a medical history significant for COPD on room air, current tobacco smoker, anxiety/depression, hypertension, BPH presents with 3 weeks of shortness of breath, intermittent fevers. He states he has been having the symptoms ever since school started for kids. Denies chest pain, but does endorse shortness of breath. Intermittent fevers. Workup in the ED significant for WBC 24.6 with tachycardia, creatinine 1.4, CTA chest revealing right middle and lower lobe opacification and esophageal dysmotility. Also requiring 2 L nasal cannula. Given these findings, ED provider discussed case with me and I decided to admit patient for acute hypoxic respiratory failure secondary to sepsis from community-acquired pneumonia. Hospital Course Hospital Course Hospital Course: Brendan Schaffer is a 54-year-old male with a medical history significant for COPD on room air, current tobacco smoker, anxiety/depression, hypertension, BPH presents with 3 weeks of shortness of breath, intermittent fevers. He states he has been having the symptoms ever since school started for kids. Denies chest pain, but does endorse shortness of breath. Intermittent fevers. Workup in the ED significant for WBC 24.6 with tachycardia, creatinine 1.4, CTA chest revealing right middle and lower lobe opacification and esophageal dysmotility. Also requiring 2 L nasal cannula. Given these findings, ED provider discussed case with me and I decided to admit patient for acute hypoxic respiratory failure secondary to sepsis from community-acquired pneumonia. #Acute hypoxic respiratory failure, resolved #Sepsis, resolved #Community-acquired pneumonia ? Presents with shortness of breath, intermittent fevers. CTA chest revealed right middle and lower lobe pneumonia. ? Initial WBC 24.6 with tachycardia, CRP 52.9. WBC normalized to 10.8 on day of discharge. No fevers. ? Overall, patient clinically improved with cefepime and doxycycline. Transitioned to levofloxacin and Advair after discussing with pulmonology. ? Initially requiring 2 L nasal cannula, weaned to room room air with appropriate saturations on walk test. ? Sputum culture pending at this time, will follow-up. ? Discharged with levofloxacin 750 mg daily and Advair 250 twice daily. ? Will follow-up with PCP within 2 weeks. #COPD #Current tobacco smoker ? Currently stable. DuoNebs every 6 hours. #Anxiety/depression ? Continue home doxepin 100 mg nightly, desvenlafaxine 50 mg, clonazepam as needed, buspirone. #Opioid use disorder in remission ? Continue home Suboxone. #Hypertension ? Hold home losartan as BP stable during admission. Will follow-up with PCP. Total time spent on discharge: 35 minutes on chart review, counseling, documentation, and direct care with patient. Exam Data for Last 24 hours Vital signs and Labs for Last 24 Hours: Temp Pulse Resp BP Pulse Ox O2 Del Method O2 Flow Rate 98.1 F 110 H 16 149/73 H 96 Room Air 3 04/06/25 12:00 04/06/25 12:00 04/06/25 12:00 04/06/25 12:00 04/06/25 12:00 04/06/25 13:05 04/06/25 08:00 FiO2 32 04/06/25 06:25 Laboratory Results - last 24 hr 04/05/25 15:52: MRSA (PCR) Negative 04/06/25 06:18: WBC 10.8 D, RBC 3.48 L, Hgb 10.5 L, Hct 31.2 L, MCV 89.7, MCH 30.2, MCHC 33.7, RDW 13.6, Plt Count 257, MPV 9.8, Neut % (Auto) 65.6, Lymph % (Auto) 21.5, [place] % (Auto) 9.7 H, Eos % (Auto) 2.0, Baso % (Auto) 0.4, Neut # (Auto) 7.1, Lymph # (Auto) 2.3, [place] # (Auto) 1.1 H, Eos # (Auto) 0.2, Baso # (Auto) 0.0, Sodium 139, Potassium 4.0, Chloride 108 H, Carbon Dioxide 24, Anion Gap 11.0, BUN 7 L D, Creatinine 1.10, Estimated Creat Clear 91, Estimated GFR 70, Est GFR ( Amer) 85, Glucose 112 H, Calcium 8.7, Total Bilirubin 0.4, AST 21 D, ALT 15, Alkaline Phosphatase 75, Troponin I < 0.01, NT-Pro-B Natriuret Pep 2860 H, Total Protein 6.8, Albumin 3.6, Globulin 3.2, Albumin/Globulin Ratio 1.1, TSH 2.93 I & O for Last 24 hours: Intake & Output 04/03/25 04/04/25 04/05/25 04/06/25 23:59 23:59 23:59 23:59 Intake Total 3150 / 3330 3680.000 / 3830.000 2373.333 / 2373.333 Output Total 0 / 0 0 / 0 0 / 0 Balance 3150 / 3330 3680.000 / 3830.000 2373.333 / 2373.333 Weight 77.564 kg 81.057 kg 82.508 kg Microbiology Reports for the Last 24 Hours: Microbiology 04/04/25 11:16 Blood Blood Culture - Preliminary NO GROWTH AFTER 48 HOURS 04/04/25 11:09 Blood Blood Culture - Preliminary NO GROWTH AFTER 48 HOURS 04/05/25 17:52 Sputum - Expectorated Sputum Gram Stain - Final Constitutional Constitutional: no acute distress and chronically ill appearing *Routine HEENT Exam Head: Present normocephalic Eye: Present EOMI and PERRL ENT: Present mucous membranes moist *Routine Neck Exam Neck: Present supple; Absent lymphadenopathy *Routine Respiratory Exam Respiratory: Present CTA bilaterally *Routine Cardiovascular Exam Cardiovascular: Present RRR *Routine Abdominal Exam Abdominal: Present soft and normoactive bowel sounds; Absent tenderness *Routine Extremities Exam Extremities: Absent cyanosis, clubbing or edema *Routine Skin Exam Skin: Present warm; Absent rash *Routine Neurological Exam Neurological: Present alert and oriented X3 Results Data Completed and Pending Labs on day of discharge: Labs from last 24 hours 04/06/25 04/05/25 06:18 15:52 WBC 10.8 D RBC 3.48 L Hgb 10.5 L Hct 31.2 L MCV 89.7 MCH 30.2 MCHC 33.7 RDW 13.6 Plt Count 257 MPV 9.8 Neut % (Auto) 65.6 Lymph % (Auto) 21.5 [place] % (Auto) 9.7 H Eos % (Auto) 2.0 Baso % (Auto) 0.4 Neut # (Auto) 7.1 Lymph # (Auto) 2.3 [place] # (Auto) 1.1 H Eos # (Auto) 0.2 Baso # (Auto) 0.0 Sodium 139 Potassium 4.0 Chloride 108 H Carbon Dioxide 24 Anion Gap 11.0 BUN 7 L D Creatinine 1.10 Estimated Creat Clear 91 Estimated GFR 70 Est GFR ( Amer) 85 Glucose 112 H Calcium 8.7 Total Bilirubin 0.4 AST 21 D ALT 15 Alkaline Phosphatase 75 Troponin I < 0.01 NT-Pro-B Natriuret Pep 2860 H Total Protein 6.8 Albumin 3.6 Globulin 3.2 Albumin/Globulin Ratio 1.1 TSH 2.93 MRSA (PCR) Negative Preliminary micro results at discharge 04/04/25 11:16 Blood Culture - Preliminary Blood NO GROWTH AFTER 48 HOURS 04/04/25 11:09 Blood Culture - Preliminary Blood NO GROWTH AFTER 48 HOURS DS: Diagnosis Discharge Diagnosis (1) Pneumonia: Status: Acute Code(s): J18.9 - Pneumonia, unspecified organism (2) Sepsis: Status: Acute Code(s): A41.9 - Sepsis, unspecified organism Meds Home Medications and Allergies Home Medications ?Medication ?Instructions ?Recorded ?Confirmed ?Type aspirin 81 mg tablet 81 mg PO DAILY #90 tabs 01/22/25 04/04/25 Rx atorvastatin 20 mg tablet 20 mg PO HS #90 tabs 01/22/25 04/04/25 Rx buprenorphine 8 mg-naloxone 2 mg 2 tab sublingual DAILY 01/22/25 04/04/25 History sublingual tablet buspirone 10 mg tablet 10 mg PO BIDP PRN Anxiety 01/22/25 04/04/25 History cholecalciferol (vitamin D3) 125 5,000 unit PO DAILY #90 caps 01/22/25 04/04/25 Rx mcg (5,000 unit) capsule clonazepam 0.5 mg tablet 0.5 mg PO BIDP PRN Anxiety 01/22/25 04/04/25 History desvenlafaxine succinate 50 mg 50 mg PO DAILY 01/22/25 04/04/25 History tablet,extended release 24 hr doxepin 100 mg capsule 100 mg PO HS 01/22/25 04/04/25 History doxepin 50 mg capsule 50 mg PO HSP PRN Sleep 01/22/25 04/04/25 History loratadine 10 mg tablet 10 mg PO DAILY #90 tabs 01/22/25 04/04/25 Rx losartan 50 mg tablet 50 mg PO DAILY #90 tabs 01/22/25 04/04/25 Rx Held on 04/06/25. Instructions: Resume on 04/20/25. Your blood pressures were normal without this medication. Please follow-up with your PCP to discuss restarting it. acetaminophen 500 mg tablet 500 mg PO Q6HP PRN Mild Pain 04/04/25 04/04/25 History (Scale Score 1-4) albuterol sulfate 90 mcg/actuation 1 inh inhalation QIDP PRN 04/04/25 04/04/25 History aerosol inhaler (Ventolin HFA) shortness of breath or wheezing famotidine 20 mg tablet 20 mg PO BIDP PRN acid reflux 04/04/25 04/04/25 History methocarbamol 500 mg tablet 500 mg PO HSP PRN Muscle Spasm 04/04/25 04/04/25 History propranolol 10 mg tablet 10 mg PO TIDP PRN Anxiety 04/04/25 04/04/25 History tamsulosin 0.4 mg capsule 0.4 mg PO HS 04/04/25 04/04/25 History fluticasone 250 mcg-salmeterol 50 1 inh inhalation BIDRT #60 ea 04/06/25 Rx mcg/dose blistr powdr for inhalation levofloxacin 750 mg tablet 750 mg PO 1100 4 days #4 tabs 04/06/25 Rx New Prescriptions to Start Prescriptions: fluticasone propion-salmeterol French Hartley levofloxacin French Hartley Allergies Allergy/AdvReac Type Severity Reaction Status Date / Time amitriptyline Allergy Mild hyperactivi Verified 01/22/25 13:34 ty tramadol AdvReac Mild trouble Verified 01/22/25 13:34 breathing Discharge Plan Disposition Patient Disposition: Home, Self-Care Condition: Fair Discharge Order Discharge Orders: Discharge Order (Routine); Ordered 04/06/25 Ordered By: French Hartley Follow up Plan Follow up with: Bam Garcia DO [Primary Care Provider, Family Practice] - 04/17/25 3:45 pm Prescriptions/Medication Reconciliation: New fluticasone propion-salmeterol 250-50 mcg/dose Blister With Device 1 inh inhalation BIDRT Qty: 60 0RF levofloxacin 750 mg Tablet 750 mg PO 1100 4 Days Qty: 4 0RF Continued doxepin 50 mg capsule 50 mg PO HSP PRN (Reason: Sleep) Patient Comments: TAKE 1 CAPSULE BY MOUTH AT BEDTIME IN ADDITION TO 100 MG NEEDED clonazepam 0.5 mg tablet 0.5 mg PO BIDP PRN (Reason: Anxiety) doxepin 100 mg capsule 100 mg PO HS Patient Comments: TAKE 1 CAPSULE BY MOUTH AT BEDTIME buspirone 10 mg tablet 10 mg PO BIDP PRN (Reason: Anxiety) buprenorphine-naloxone 8-2 mg tablet, sublingual 2 tab sublingual DAILY desvenlafaxine succinate 50 mg tablet extended release 24 hr 50 mg PO DAILY Patient Comments: TAKE 1 TABLET BY MOUTH ONCE A DAY atorvastatin 20 mg tablet 20 mg PO HS Qty: 90 3RF loratadine 10 mg tablet 10 mg PO DAILY Qty: 90 3RF aspirin 81 mg tablet 81 mg PO DAILY Qty: 90 3RF cholecalciferol (vitamin D3) 125 mcg (5,000 unit) capsule 5,000 unit PO DAILY Qty: 90 3RF methocarbamol 500 mg tablet 500 mg PO HSP PRN (Reason: Muscle Spasm) propranolol 10 mg tablet 10 mg PO TIDP PRN (Reason: Anxiety) acetaminophen 500 mg tablet 500 mg PO Q6HP PRN (Reason: Mild Pain (Scale Score 1-4)) famotidine 20 mg tablet 20 mg PO BIDP PRN (Reason: acid reflux) tamsulosin 0.4 mg capsule 0.4 mg PO HS albuterol sulfate [Ventolin HFA] 90 mcg/actuation HFA aerosol inhaler 1 inh inhalation QIDP PRN (Reason: shortness of breath or wheezing) Held losartan 50 mg tablet 50 mg PO DAILY Qty: 90 3RF Hold Instructions: Resume on 04/20/25. Your blood pressures were normal without this medication. Please follow-up with your PCP to discuss restarting it. Problem Reconciliation Problems Reviewed?: Yes Patient Discharge Instructions Patient Instructions: DI for Pneumonia in Adults, DI for Sepsis in Adults, Stop Light Pneumonia, Stop Light Infection Print Language: Turkmen Providers Primary Care Provider: Bam Garcia Admit Provider: French Hartley Attending Provider: French Hartley
--- NOTE | 2025-04-07 10:16 | SW/DCPLANNER ---
Spoke with patient on the phone. Patient stated that he is doing pretty good. Patient stated that he is aware of his upcoming appointment. Patient stated that he has not been able to get his new medicine picked up but plans on getting them today. Patient stated that he has no concerns or questions at this time. Ilir GARDUNO Pulmonary Physical Therapist
== END 2025-04-06 14:36 | disposition home or self-care (01) | DRG 871 ==
LOC: ER 11:12 → 2ND 12:22
PROVIDERS: Admitting Provider Student in an Organized Health Care Education/Training Program; Emergency Provider Student in an Organized Health Care Education/Training Program; PCP Internal Medicine; Visit Provider Student in an Organized Health Care Education/Training Program
DX: A41.9 Sepsis, unspecified organism (principal); J18.9 Pneumonia, unspecified organism; J96.01 Acute respiratory failure with hypoxia; J44.0 Chronic obstructive pulmonary disease with (acute) lower respiratory infection; I10 Essential (primary) hypertension; F41.9 Anxiety disorder, unspecified; F32.A Depression, unspecified; N40.0 Benign prostatic hyperplasia without lower urinary tract symptoms; F11.11 Opioid abuse, in remission; F17.210 Nicotine dependence, cigarettes, uncomplicated; Z88.5 Allergy status to narcotic agent; Z88.8 Allergy status to other drugs, medicaments and biological substances; Z79.82 Long term (current) use of aspirin; Z79.899 Other long term (current) drug therapy
CPT/HCPCS: 0223U; 36415; 71275; 80053; 81001; 82803; 83880; 84443; 84484; 85007; 85025; 85610; 85730; 86140; 86803; 87040; 87070; 87205; 87389; 87522; 87641; 93005; 93306; 94640; 94761; 99285; J0456; J0574; J0692; J0696; J1650; J1938; J2405; J7030; J7050; J7120; Q9967